=== PATIENT | female | born 1955 | race Caucasian/White ===

== ENCOUNTER 2021-11-17 07:26 | Day surgery (SDC) | payer MEDICARE ==
--- NOTE | 2021-11-11 09:47 | HP ---
DATE OF SURGERY: 11/17/2021 HISTORY OF PRESENT ILLNESS: The patient is a 66-year-old female who presented with a positive Cologuard. The patient has not had a colonoscopy to date. She denies family history of colon cancer. She denies any GI signs or symptoms at this time. PAST MEDICAL HISTORY: Hypertension, hyperlipidemia, gout, neuropathy. PAST SURGICAL HISTORY: Knee surgery x2. Left total knee surgery. Partial hysterectomy. Cholecystectomy. ALLERGIES: IODINATED CONTRAST MEDIA. MEDICATIONS: Naproxen, hydrocodone, potassium, atorvastatin, Ambien, gabapentin, metoprolol, Fosamax, venlafaxine, allopurinol, stool softener, aspirin, hydralazine. FAMILY HISTORY: None reported. SOCIAL HISTORY: None reported. REVIEW OF SYSTEMS: CONSTITUTIONAL: Denies fever or chills. CHEST: Denies shortness of breath. CVS: Denies chest pain. ABDOMEN: Denies abdominal pain, nausea, vomiting, diarrhea, constipation or rectal bleeding. PHYSICAL EXAMINATION: GENERAL: No acute distress. CHEST: Nonlabored. No shortness of breath. CVS: Regular rate and rhythm. ABDOMEN: Soft. IMPRESSION: Positive Cologuard. PLAN: Colonoscopy with Dr. Lex Patel. As dictated by Carmen Tai NP.
[2021-11-17] MEDS ORDERED: GlucaGen 1 MG IM ONE (07:27)
[2021-11-17] MEDS ORDERED: Lactated Ringers 1,000 ML IV ONE (07:49)
[2021-11-17] MEDS ORDERED: Lactated Ringers 1,000 ML IV SCH (08:00)
[2021-11-17] MEDS ORDERED: Versed 2 MG/2 ML Injection ONE (09:34)
[2021-11-17] MEDS ORDERED: DIPRIVAN 200 MG/20 ML IV ONE ×2 (09:34→09:49)
[2021-11-17 10:17] VITALS: O2SAT 96
[2021-11-17 10:25] VITALS: BP 143/91; PULSE 80
--- NOTE | 2021-11-17 11:28 | OP ---
SURGERY DATE/TIME: 11/17/2021 0937 PREOPERATIVE DIAGNOSIS: Positive Cologuard. POSTOPERATIVE DIAGNOSIS: A 1 cm mid sigmoid colon polyp. PROCEDURES: 1) Colonoscopy complete to cecum. 2) Hot polypectomy x1. SURGEON: Lex Patel M.D. ANESTHESIA: MAC. COMPLICATIONS: None. CONDITION: Stable. INDICATION: The patient had a positive Cologuard. DESCRIPTION OF PROCEDURE: Taken to endoscopy. Left lateral decubitus position. MAC sedation provided. Time out performed. Anal digital examination satisfactory. Scope introduced. She has moderate internal hemorrhoids. Rectum negative. Sigmoid, transverse, scope advanced over the cecum. Slightly redundant colon. Base of the cecum, ileocecal valve, appendiceal orifice normal. Ascending, hepatic, transverse, splenic, descending. Mid sigmoid a 1 cm polyp posterior wall was picked up and taken to extinction. Alley [employer]er sample submitted. Rectum and anus moderate internal hemorrhoids. The patient tolerated the procedure satisfactorily. Follow up in three years.
== END 2021-11-17 10:30 | disposition home or self-care (01) ==
LOC: SDC 07:26
PROVIDERS: ATTEND Surgery
DX: K63.5 Polyp of colon (principal); R19.5 Other fecal abnormalities; K64.8 Other hemorrhoids
CPT/HCPCS: J1610; J2250; J2704

== ENCOUNTER 2021-12-17 08:06 | Emergency (ER) | payer MEDICARE ==
--- NOTE | 2021-12-17 08:32 | ERPHSYRPT ---
- History of Present Illness Time Seen by Provider: 12/17/21 08:27 Source: patient Exam Limitations: no limitations Patient Subjective Stated Complaint: C/O RLE swelling without pain that started yesterday morning Triage Nursing Assessment: Patient wheeled down to ED from the [facility] in a wheelchair. She walks with a cane and wears a knee brace on her left knee. She was able to transfer self from w/c to bed without difficulties. She is alert and oriented and answering questions appropriately. RLE is very swollen; non- pitting edema. Right leg is slightly warmer than left leg. No discoloration noted. Both pedal pulses present. Physician History: Patient is 66-year-old female with significant past medical history of knee osteoarthritis history of coronavirus infection in July 2020 started having a right lower extremity swelling without pain since yesterday. She came to the [facility] from where patient was sent to the emergency room for further evaluation. Patient is denying any pain shortness of breath chest pain bloody stool or urine headache nausea or vomiting. Method of Injury: unknown Occurred: yesterday Severity of Pain-Max: none Severity of Pain-Current: none Modifying Factors: Improves With: nothing Associated Symptoms: none Body Map: 1 - swelling Allergies/Adverse Reactions: Horse/Equine Containing Products Allergy (Intermediate, Verified 12/17/21 08:14) Hives Iodinated Contrast Media [Iodinated Contrast Media - Oral and] Allergy (Intermediate, Verified 12/17/21 08:14) Swelling tetanus and diphtheria toxoids Allergy (Intermediate, Verified 12/17/21 08:14) Nausea and Vomiting Home Medications: Gabapentin 600 mg PO QID 06/11/16 [History] Hydrocodone/Acetaminophen [Nardin 5-325 Tablet] 1 each PO BID PRN 06/11/16 [History] Zolpidem Tartrate [Ambien] 10 mg PO HS PRN 06/11/16 [History] Atorvastatin Calcium 20 mg PO HS 06/24/16 [History] Furosemide 80 mg [Lasix 80 mg] 80 mg PO BID 06/24/16 [History] Metoprolol Tartrate 25 mg [Lopressor 25MG Tab] 25 mg PO BID 06/24/16 [History] Potassium Chloride 20 Meq [Klor-Con 20 MEQ] 20 meq PO EVENING MEAL 06/24/16 [History] Allopurinol 300 mg [Zyloprim 300 mg] 300 mg PO DAILY 11/10/21 [History] Venlafaxine HCl ER 75 mg [Effexor XR 75 MG] 75 mg PO DAILY 11/10/21 [History] Albuterol Sulfate [Albuterol Sulfate Hfa] 18 gm IH Q4HPRN PRN 11/17/21 [History] Aspirin EC 81 mg [Ecotrin 81 mg] 1 tab PO DAILY 12/17/21 [History] Hydroxyzine HCl 25 mg [Atarax 25 mg] 1 tab PO BID PRN 12/17/21 [History] Sucralfate 1 tab PO TID 12/17/21 [History] Hx Tetanus, Diphtheria Vaccination/Date Given: No (allergic) Hx Influenza Vaccination/Date Given: No Hx Pneumococcal Vaccination/Date Given: No Immunizations Up to Date: Yes Travel Risk - International Travel Have you traveled outside of the country in past 3 weeks: No - Coronavirus Screening Are you exhibiting any of the following symptoms?: No Close contact with a COVID-19 positive Pt in past 14-21 Days: No - Vaccine Status Have you recieved a Covid-19 vaccination: Yes [employer]: Moderna - Vaccination Dates Date of 2cond Vaccination (if applicable): 2020 - Review of Systems Constitutional: No Fever, No Chills Eyes: No Symptoms Ears, Nose, & Throat: No Symptoms Respiratory: No Cough, No Dyspnea Cardiac: No Chest Pain, No Edema, No Syncope Abdominal/Gastrointestinal: No Abdominal Pain, No Nausea, No Vomiting, No D iarrhea Genitourinary Symptoms: No Dysuria Musculoskeletal: No Back Pain, No Neck Pain Skin: No Rash Neurological: No Dizziness, No Focal Weakness, No Sensory Changes Psychological: No Symptoms Endocrine: No Symptoms All Other Systems: Reviewed and Negative - Past Medical History Pertinent Past Medical History: Yes Neurological History: No Pertinent History ENT History: No Pertinent History Cardiac History: Hypertension Respiratory History: Other Endocrine Medical History: No Pertinent History Musculoskeletal History: Arthritis, Osteoarthritis, Rheumatoid Arthritis GI Medical History: No Pertinent History History: No Pertinent History Psycho-Social History: Anxiety, Depression Female Reproductive Disorders: No Pertinent History Other Medical History: Covid in Jul 2021 - Past Surgical History Past Surgical History: Yes Neuro Surgical History: No Pertinent History Cardiac: No Pertinent History Respiratory: No Pertinent History Gastrointestinal: Cholecystectomy Genitourinary: No Pertinent History Musculoskeletal: Joint Replacement Female Surgical History: Hysterectomy Other Surgical History: LTK, meniscus yoana knees - Social History Smoking Status: Never smoker Exposure to second hand smoke: No Drug Use: none Patient Lives Alone: No - Nursing Vital Signs Nursing Vital Signs: Initial Vital Signs Temperature 97.5 F 12/17/21 08:15 Pulse Rate 69 12/17/21 08:15 Respiratory Rate 18 12/17/21 08:15 Blood Pressure 123/69 12/17/21 08:15 O2 Sat by Pulse Oximetry 99 12/17/21 08:15 Pain Scale Pain Intensity 0 - Physical Exam General Appearance: alert Eyes, Ears, Nose, Throat Exam: moist mucous membranes Neck Exam: non-tender, supple Cardiovascular/Respiratory Exam: chest non-tender, normal breath sounds, regular rate/rhythm, no respiratory distress Gastrointestinal/Abdominal Exam: non-tender, soft Back Exam: normal inspection, No vertebral tenderness Hips Exam: right: swelling, bilateral: non-tender Legs Exam: right leg: swelling, bilateral leg: non-tender Knees Exam: bilateral knee: non-tender Ankle Exam: bilateral ankle: non-tender Foot Exam: bilateral foot: non-tender Neuro/Tendon Exam: normal sensation, normal motor functions Mental Status Exam: alert, oriented x 3, cooperative Skin Exam: normal color, warm, dry SpO2 Interpretation: normal SpO2: 99 O2 Delivery: Room Air - Course Nursing assessment & vital signs reviewed: Yes Ordered Tests: Active Orders 24 hr Category Date Time Status CBC Stat Lab 12/17/21 08:36 Completed CMP Stat Lab 12/17/21 08:36 Received D-DIMER QUANTITATIVE Stat Lab 12/17/21 08:36 Completed Medication Summary Generic Name Dose Route Start Last Admin Trade Name Freq PRN Reason Stop Dose Admin Apixaban 10 mg 12/17/21 09:19 Apixaban 2.5 Mg Tablet PO 12/17/21 09:20 DAILY ONE Lab/Rad Data: Laboratory Result Diagrams 12/17/21 08:36 Laboratory Results 12/17/21 12/17/21 Range/Units 08:36 08:36 WBC 8.1 (4.0-10.5) x10^3/uL RBC 4.27 (4.1-5.4) x10^6/uL Hgb 12.2 (12.0-16.0) g/dL Hct 38.4 (35-47) % MCV 89.9 (78-100) fL MCH 28.6 (26-32) pg MCHC 31.8 L (32-36) g/dL RDW 13.5 (11.5-14.0) % Plt Count 183 (150-450) x10^3/uL MPV 9.0 (7.5-11.0) fL D-Dimer 9.44 H* (0.0-0.50) mg/L Patient both lower extremity arterial pulse were checked with arterial Doppler on both sides includes femoral popliteal and dorsalis pedis and posterior tibial they both have a very good pulsation and good volume pulsation. Venous duplex was also done on the right lower extremity extending from femoral vein all the way to the calf veins and which were patent and veins were compressed on pressure. Complete blood count D-dimer and comprehensive metabolic panel has been ordered. - Progress Progress: unchanged Progress Note: 12/17/21 09:08 Patient D-dimer is elevated. In ER venous duplex done by me was negative. We will order right lower lateral extremity ultrasound on Sunday. Meanwhile we will start patients on anticoagulation Eliquis 10 mg twice daily. Patient is advised to follow-up with Dr. Suarez after ultrasound report. Counseled pt/family regarding: lab results, diagnosis, need for follow-up, rad results - Departure Departure Disposition: Home Clinical Impression: Elevated d-dimer, Post covid-19 condition, unspecified Condition: Stable Critical Care Time: No Referrals: STEPHANIE SUAREZ DO [Primary Care Provider] - Follow Up with PCP/3 days Instructions: D-Dimer Test, Apixaban Additional Instructions: One of your blood test which is called D-dimer has been elevated which usually may be consistent with possible blood clot. We will schedule more diagnostic venous ultrasound of right lower extremity which is scheduled for Sunday. Meanwhile we have started you on blood thinner called Eliquis 10 mg twice a day for for 7 days and then 5 mg twice a day. Follow-up with Dr. Faith for further management after you get your venous duplex ultrasound on Sunday morning. Stop naproxen while you are taking eliquis. which may cause stomach bleeding. Discharge/Care Plan SAMIA MADSEN was seen on 12/17/21 in the Emergency Room. The patient was counseled regarding Diagnosis,Lab results, Imaging studies, need for follow up and when to return to the Emergency Room. Prescriptions given: Discharge Note I have spoken with the patient and/or caregivers. I have explained the patient's condition, diagnosis and treatment plan based on the information available to me at this time. I have answered the patient's and/or caregiver's questions and a ddressed any concerns. The patient and/or caregivers have as good understanding of the patient's diagnosis, condition and treatment plan as can be expected at this point. The vital signs have been stable. The patient's condition is stable and appropriate for discharge from the emergency department. The patient will pursue further outpatient evaluation with the primary care physician or other designated or consulting physician as outlined in the discharge instructions. The patient and/or caregivers are agreeable to this plan of care and follow-up instructions have been explained in detail. The patient and/or caregivers have received these instruction. The patient/and or caregivers are aware that any significant change in condition or worsening of symptoms should prompt an immediate return to this or the closest emergency department or call 911. SAMIA MADSEN was seen on 12/17/21 n the Emergency Room. At that time you were treated for an emergent condition, during your visit Laboratory, Radiology and/or other procedures may have been ordered. It is very important that you follow-up with your Primary Care Physician STEPHANIE SUAREZ, within the next 24-48 hours to review your Emergency Room visit and the final results of testing that was ordered. Some test results such as Urine Cultures, Blood Cultures, and other cultures if ordered will not be finalized for 24-48 hours. If you do not have a Primary Care Provider please call the medical records department at [phone] ext [phone] to obtain a copy of your results or you may sign into our patient portal to obtain these results by visiting us @ [email or web address] and completing the following steps: 1. Click on the Patient Portal link 2. Click the Patient Self Enrollment Link to complete the enrollment form and entering your 3. Once the enrollment form is completed you will receive an email with a temporary ID and password at the email address you provided. 4. Next choose a user name and password. Your user name must be at least 4 characters long and your password must be at least 4 characters long. 5. Choose a security question from the list and provide your answer to the question. If you already have signed into the Health Portal you may access your Health Care Information 15/01 by the following steps: 1. Login to our website @ [email or web address] 2. Enter your original user name and password. FAQS The [facility] Portal is an online tool that contains your Lab Results, Radiology Reports, Visit History, Discharge Instructions and Health Summary Lab and Radiology Results will not be available for 72 hours on the portal. The Portal is a secure site, passwords are encryted and URLs are re-written so they cannot be copied and pasted. You and authorized family members are the only ones who can access your Portal. Also there is a timeout feature that protects your information if you leave the Portal page open. If you have technical difficulty please use the Contact Us link on the page this will allow you to submit any questions you have regarding the Portal or you may contact the Medical Record Department at [phone] ext [phone]. Prescriptions: Apixaban [Eliquis 5 mg Tablet] 5 mg PO BID #72 tablet
[2021-12-17 08:48] LABS: Hematocrit 38.4 % (35-47); Hemoglobin 12.2 g/dL (12.0-16.0); Mean Cell Volume 89.9 fL (78-100); Mean Corpuscular Hemoglobin 28.6 pg (26-32); Mean Corpuscular Hgb Concent. 31.8 g/dL (32-36); Platelet Count 183 x10^3/uL (150-450); Red Blood Count 4.27 x10^6/uL (4.1-5.4); Red Cell Distribution Width 13.5 % (11.5-14.0); White Blood Count 8.1 x10^3/uL (4.0-10.5)
[2021-12-17 09:17] VITALS: BP 134/75
[2021-12-17 09:19] LABS: ALBUMIN 3.9 g/dL (3.5-5.0); ALKALINE PHOSPHATASE 111 U/L (38-126); ANION GAP 12.8 MEQ/L (5-15); BLOOD UREA NITROGEN 15 mg/dL (7-17); CHLORIDE 104 mmol/L (98-107); Calcium 9.3 mg/dL (8.4-10.2); Carbon Dioxide 31 mmol/L (22-30); Creatinine 1 0.94 mg/dL (0.52-1.04); EST GLOMERULAR FILTRATION RATE > 60.0 ML/MIN; Glucose 114 mg/dL (74-106); Potassium 4.7 mmol/L (3.5-5.1); SGOT/AST 27 U/L (14-36); SGPT/ALT 21 U/L (0-35); SODIUM 142 mmol/L (137-145); Total Protein 6.6 g/dL (6.3-8.2)
[2021-12-17] MEDS ORDERED: ELIQUIS 2.5 MG TABLET PO ONE (09:19)
[2021-12-17 09:52] VITALS: PULSE 70; O2SAT 98
== END 2021-12-17 09:52 | disposition home or self-care (01) ==
LOC: ED 08:06
DX: R79.1 Abnormal coagulation profile (principal); U09.9 Post COVID-19 condition, unspecified; R60.0 Localized edema; M79.89 Other specified soft tissue disorders; I10 Essential (primary) hypertension; Z79.01 Long term (current) use of anticoagulants; Z79.891 Long term (current) use of opiate analgesic; Z79.899 Other long term (current) drug therapy
CPT/HCPCS: 36415; 80053; 85027; 85379; 99283; A9270-GY

== ENCOUNTER 2025-03-09 08:05 | Inpatient (IN) | payer MEDICARE, SELFPAY ==
[2025-03-09] MEDS ORDERED: BABY ASPIRIN 81 MG CHEW ONE (08:22)
[2025-03-09] MEDS ORDERED: Cardizem IV 50 MG/10 ML IV ONE (08:23)
[2025-03-09] MEDS: BABY ASPIRIN 81 MG CHEW PO ONE (08:25)
[2025-03-09] MEDS: Cardizem IV 50 MG/10 ML IV ONE (08:25)
[2025-03-09 08:39] LABS: BASOPHIL % 0.4 % (0.1-1.2); Basophil (Absolute #) 0.05 x10^3/uL (0.01-0.08); Eosinophil (Absolute #) 0.15 x10^3/uL (0.04-0.36); Hematocrit 43.1 % (34.1-44.9); Hemoglobin 13.4 g/dL (11.2-15.7); IMMATURE GRAN # 0.08 x10^3u/L (0.001-0.031); IMMATURE GRAN % 0.7 % (0.001-0.429); Lymphocyte (Absolute #) 1.73 x10^3/uL (1.18-3.74); Mean Corpuscular Hemoglobin 27.3 pg (25.6-32.2); Mean Corpuscular Hgb Concent. 31.1 g/dL (32.2-35.5); Monocyte (Absolute #) 0.59 x10^3/uL (0.24-0.86); NUCLEATED RBC # 0.00 x10^3u/L (0.00-0.012); NUCLEATED RBC % 0.0 % (0.00-0.2); Platelet Count 256 x10^3/uL (182-369); Red Blood Count 4.90 x10^6/uL (3.93-5.22); White Blood Count 11.1 x10^3/uL (3.98-10.04)
--- NOTE | 2025-03-09 08:42 | ERPHSYRPT ---
- History of Present Illness Time Seen by Provider: 03/09/25 08:14 Source: patient, old records Exam Limitations: no limitations Physician History: Patient sent over from urgent care for A-fib with RVR. Patient has a known history of A-fib. Has been not feeling well over the past 4 to 5 days. States that she went to [facility] today for viral swabs. These were read as negative per patient care nursing assistant. However, patient continued to feel poorly, EKG was performed I am reviewing EKG from [facility] EKG my interpretation from 0756 demonstrates A-fib, RVR, rate of 148, QRS 93, QTc is 491, patient is on blood thinners for this. She denies missing any doses of her blood thinners. No other falls or trauma no fever or chills today. Patient has no chest pain, shortness of breath no other signs or symptoms of DVT, pulmonary embolism on history. Allergies/Adverse Reactions: Horse/Equine Containing Products Allergy (Intermediate, Verified 12/17/21 08:14) Hives Iodinated Contrast Media [Iodinated Contrast Media - Oral and] Allergy (Intermediate, Verified 12/17/21 08:14) Swelling tetanus and diphtheria toxoids Allergy (Intermediate, Verified 12/17/21 08:14) Nausea and Vomiting Home Medications: Gabapentin 600 mg PO QID 06/11/16 [History] Hydrocodone/Acetaminophen [[place] 5-325 Tablet] 1 each PO BID PRN 06/11/16 [History] Zolpidem Tartrate [Ambien] 10 mg PO HS PRN 06/11/16 [History] Atorvastatin Calcium 40 mg PO HS 06/24/16 [History] Furosemide 80 mg [Lasix 80 mg] 80 mg PO BID 06/24/16 [History] Metoprolol Tartrate 25 mg [Lopressor 25MG Tab] 25 mg PO BID 06/24/16 [History] Potassium Chloride 20 Meq [Klor-Con 20 MEQ] 20 meq PO BID@0800,1700 06/24/16 [History] Allopurinol 300 mg [Zyloprim 300 mg] 300 mg PO DAILY 11/10/21 [History] Venlafaxine HCl ER 75 mg [Effexor XR 75 MG] 150 mg PO DAILY 11/10/21 [History] Albuterol Sulfate [Albuterol Sulfate Hfa] 18 gm IH Q4HPRN PRN 11/17/21 [History] Hydroxyzine HCl 25 mg [Atarax 25 mg] 1 tab PO BID PRN 12/17/21 [History] Hx Tetanus, Diphtheria Vaccination/Date Given: No (allergic) Hx Influenza Vaccination/Date Given: No Hx Pneumococcal Vaccination/Date Given: No - Past Medical History Pertinent Past Medical History: Yes Neurological History: No Pertinent History ENT History: No Pertinent History Cardiac History: Arrhythmia, Hypertension Respiratory History: No Pertinent History Endocrine Medical History: No Pertinent History Musculoskeletal History: Osteoarthritis GI Medical History: No Pertinent History History: No Pertinent History Psycho-Social History: Anxiety, Depression Female Reproductive Disorders: No Pertinent History Other Medical History: HISTORY OF BACK PAIN, BLOOD CLOTS IN THE R LE DUE TO POST-COVID. - Past Surgical History Past Surgical History: Yes Neuro Surgical History: No Pertinent History Cardiac: No Pertinent History Respiratory: No Pertinent History Gastrointestinal: Cholecystectomy Genitourinary: No Pertinent History Musculoskeletal: Joint Replacement Female Surgical History: Hysterectomy Other Surgical History: LTK, meniscus yoana knees - Social History Smoking Status: Never smoker Exposure to second hand smoke: No Drug Use: none - Nursing Vital Signs Nursing Vital Signs: Initial Vital Signs Temperature 97.9 F 03/09/25 08:12 Pulse Rate 170 H 03/09/25 08:12 Respiratory Rate 18 03/09/25 08:12 Blood Pressure 109/92 03/09/25 08:12 O2 Sat by Pulse Oximetry 98 03/09/25 08:12 Pain Scale Pain Intensity 0 - Physical Exam SpO2: 98 Comments: 03/09/25 08:40 Review of Systems Constitutional: Negative for fever. HENT: Cough, cold, congestion Respiratory: Negative for shortness of breath. Cardiovascular: Negative for chest pain. Gastrointestinal: Negative for abdominal pain. Diarrhea last week Genitourinary: Negative for dysuria. Musculoskeletal: Negative for back pain. Skin: Negative for rash. Neurological: Negative for headaches. Psychiatric/Behavioral: Negative for behavioral problems. All other systems reviewed and are negative. Physical Exam Vitals signs and nursing note reviewed. Constitutional: Appearance: Patient is well-developed. HENT: Head: Normocephalic and atraumatic. Eyes: Conjunctiva/sclera: Conjunctivae normal. Neck: Musculoskeletal: Normal range of motion. Trachea: No tracheal deviation. Cardiovascular: Rate and Rhythm: Atrial fibs, RVR Pulmonary: Effort: Pulmonary effort is normal. No respiratory distress. Abdominal: Palpations: Abdomen is soft. Musculoskeletal: General: No deformity. Skin: General: Skin is warm and dry. Neurological/ Psychiatric: Mental Status: Mental status, behavior, interaction with environment is appropriate for patient's age and condition - Course Nursing assessment & vital signs reviewed: Yes EKG Interpreted by Me: A-fib Ordered Tests: Active Orders 24 hr Category Date Time Status Call Admit Doctor for Orders ON ADMISSION Care 03/09/25 09:59 Active Radio Time Salesperson STAT Care 03/09/25 08:16 Active Code Status Order ROUTINE Care 03/09/25 09:59 Active EKG-ER Only STAT Care 03/09/25 08:15 Active IV Insertion STAT Care 03/09/25 08:[address] in Observation ROUTINE Care 03/09/25 10:00 Active Heart-Healthy Diet Diet 03/10/25 Breakfast Active CHEST 1 VIEW (PORTABLE) Stat Exams 03/09/25 08:16 Completed AMYLASE Stat Lab 03/09/25 08:28 Completed CBC W DIFF Stat Lab 03/09/25 08:28 Completed CK-Creatinine Phosphokinase Stat Lab 03/09/25 08:28 Completed CMP Stat Lab 03/09/25 08:28 Completed ETHYL ALCOHOL Stat Lab 03/09/25 08:28 Completed Erythrocyte Sedimentation Rate Stat Lab 03/09/25 08:28 Completed LIPASE Stat Lab 03/09/25 08:28 Completed Lactic Acid Stat Lab 03/09/25 08:15 Completed MAGNESIUM Stat Lab 03/09/25 08:28 Completed NT PRO BNPII Stat Lab 03/09/25 08:28 Completed PROTIME WITH INR Stat Lab 03/09/25 08:28 Completed TROPONIN Q4H Lab 03/09/25 08:28 Completed TROPONIN Q4H Lab 03/09/25 12:15 Ordered TROPONIN Q4H Lab 03/09/25 16:15 Ordered UA W/RFX UR CULTURE Stat Lab 03/09/25 09:09 Completed Pulse Oximetry CONTINUOUS RT 03/09/25 10:01 Active Respiratory Therapy Consult ONCE RT 03/09/25 10:00 Active Medication Summary Generic Name Dose Route Start Last Admin Trade Name Freq PRN Reason Stop Dose Admin Diltiazem HCl 100 mls @ 5 mls/hr 03/09/25 09:57 03/09/25 10:19 Cardizem Drip 100 Mg/100 Ml D5w IV 04/08/25 09:56 5 mg/hr .Q20H PRN 5 mls/hr HEART RATE/ A-FIB Administration Protocol 5 MG/HR Discontinued Medications Generic Name Dose Route Start Last Admin Trade Name Freq PRN Reason Stop Dose Admin Aspirin 324 mg 03/09/25 08:15 03/09/25 08:25 Aspirin 81 Mg Tab.Chew PO 03/09/25 08:16 324 mg STAT ONE Administration Aspirin Confirm 03/09/25 08:22 Aspirin 81 Mg Tab.Chew Administered 03/09/25 08:23 Dose 324 mg .ROUTE .STK-MED ONE Azithromycin 500 mg 03/09/25 09:36 03/09/25 10:17 Azithromycin 250 Mg Tablet PO 03/09/25 09:37 500 mg STAT ONE Administration Azithromycin Confirm 03/09/25 10:16 Azithromycin 250 Mg Tablet Administered 03/09/25 10:17 Dose 500 mg .ROUTE .STK-MED ONE Diltiazem HCl 10 mg 03/09/25 08:15 03/09/25 08:25 Diltiazem Hcl Iv 5 Mg/Ml Vial IV 03/09/25 08:16 10 mg STAT ONE Administration Diltiazem HCl Confirm 03/09/25 08:23 Diltiazem Hcl Iv 5 Mg/Ml Vial Administered 03/09/25 08:24 Dose 50 mg IV .STK-MED ONE Sodium Chloride 1,000 mls @ 999 mls/hr 03/09/25 08:15 03/09/25 09:34 Sodium Chloride 0.9% 1000 Ml IV 03/09/25 09:15 Infused .Q1H1M STA Infusion Sodium Chloride Confirm 03/09/25 08:22 Sodium Chloride 0.9% 1000 Ml Administered 03/09/25 08:23 Dose 1,000 mls @ ud .ROUTE .STK-MED ONE Ceftriaxone Sodium 2 gm in 100 mls @ 200 mls/hr 03/09/25 09:36 03/09/25 09:42 Rocephin 2 Gm/100 Ml Nacl IV 03/09/25 10:05 200 ml/hr STAT ONE 200 mls/hr Administration Ceftriaxone Sodium Confirm 03/09/25 09:40 Rocephin 2 Gm/100 Ml Nacl Administered 03/09/25 09:41 Dose 2 gm in 100 mls @ ud IV .STK-MED ONE Lab/Rad Data: Laboratory Result Diagrams 03/09/25 08:28 03/09/25 08:28 Laboratory Results 03/09/25 03/09/25 03/09/25 Range/Units 09:09 08:28 08:28 WBC (3.98-10.04) x10^3/uL RBC (3.93-5.22) x10^6/uL Hgb (11.2-15.7) g/dL Hct (34.1-44.9) % MCV (79.4-94.8) fL MCH (25.6-32.2) pg MCHC (32.2-35.5) g/dL RDW (11.7-14.4) % Plt Count (182-369) x10^3/uL MPV (9.4-12.3) fL Gran % (34.0-71.1) % Immature Gran % (Auto) (0.001-0.429) % Nucleat RBC Rel Count (0.00-0.2) % Eos # (Auto) (0.04-0.36) x10^3/uL Immature Gran # (Auto) (0.001-0.031) x10^3u/L Absolute Lymphs (auto) (1.18-3.74) x10^3/uL Absolute Monos (auto) (0.24-0.86) x10^3/uL Absolute Nucleated RBC (0.00-0.012) x10^3u/L Lymphocytes % (19.3-51.7) % Monocytes % (4.7-12.5) % Eosinophils % (0.7-5.8) % Basophils % (0.1-1.2) % Absolute Granulocytes (1.56-6.13) x10^3/uL Basophils # (0.01-0.08) x10^3/uL ESR (0-20) mm/hr PT 21.2 H (9.4-12.5) SECONDS INR 2.04 (0.8-3.0) Sodium 142 (135-145) mmol/L Potassium 3.3 L (3.5-5.1) mmol/L Chloride 105 (98-107) mmol/L Carbon Dioxide 27 (22-30) mmol/L Anion Gap 13.9 (5-15) MEQ/L BUN 18 H (7-17) mg/dL Creatinine 1.37 H (0.52-1.04) mg/dL Estimated GFR 42.3 ML/MIN Glucose 147 H (74-106) mg/dL Lactic Acid (0.4-2.0) Calcium 9.0 (8.4-10.2) mg/dL Magnesium 2.2 (1.6-2.3) mg/dL Total Bilirubin 0.60 (0.2-1.3) mg/dL AST 52 H (14-36) U/L ALT 110 H (0-35) U/L Alkaline Phosphatase 117 (38-126) U/L Creatine Kinase 45 (30-135) U/L Troponin I < 0.012 (0.000-0.033) ng/mL NT-Pro-B Natriuret Pep 5220 (<300) pg/mL Serum Total Protein 6.7 (6.3-8.2) g/dL Albumin 4.0 (3.5-5.0) g/dL Amylase 80 (30-110) U/L Lipase 148 (23-300) U/L Urine Color Yellow (Yellow) Urine Appearance Clear (Clear) Urine pH 6.5 (4.6-8.0) Ur Specific [place] 1.010 (1.005-1.030) Urine Protein Negative (Negative) Urine Glucose (UA) Negative (Negative) mg/dL Urine Ketones Negative (Negative) Urine Blood Negative (Negative) Urine Nitrite Negative (Negative) Urine Bilirubin Negative (Negative) Urine Urobilinogen 1.0 A (0.2) mg/dL Ur Leukocyte Esterase Trace A (Negative) U Hyaline Cast (Auto) NONE SEEN (0-2) /LPF Urine Microscopic RBC 0-2 (0-5) /HPF Urine Microscopic WBC 0-2 (0-5) /HPF Ur Epithelial Cells None Seen (None Seen) /HPF Urine Bacteria None Seen (None Seen) /HPF Urine Culture Reflexed NO (NO) Ethyl Alcohol < 10 (0-10) mg/dL 03/09/25 03/09/25 Range/Units 08:28 08:15 WBC 11.1 H (3.98-10.04) x10^3/uL RBC 4.90 (3.93-5.22) x10^6/uL Hgb 13.4 (11.2-15.7) g/dL Hct 43.1 (34.1-44.9) % MCV 88.0 (79.4-94.8) fL MCH 27.3 (25.6-32.2) pg MCHC 31.1 L (32.2-35.5) g/dL RDW 14.6 H (11.7-14.4) % Plt Count 256 (182-369) x10^3/uL MPV 10.4 (9.4-12.3) fL Gran % 76.7 H (34.0-71.1) % Immature Gran % (Auto) 0.7 H (0.001-0.429) % Nucleat RBC Rel Count 0.0 (0.00-0.2) % Eos # (Auto) 0.15 (0.04-0.36) x10^3/uL Immature Gran # (Auto) 0.08 H (0.001-0.031) x10^3u/L Absolute Lymphs (auto) 1.73 (1.18-3.74) x10^3/uL Absolute Monos (auto) 0.59 (0.24-0.86) x10^3/uL Absolute Nucleated RBC 0.00 (0.00-0.012) x10^3u/L Lymphocytes % 15.6 L (19.3-51.7) % Monocytes % 5.3 (4.7-12.5) % Eosinophils % 1.3 (0.7-5.8) % Basophils % 0.4 (0.1-1.2) % Absolute Granulocytes 8.52 H (1.56-6.13) x10^3/uL Basophils # 0.05 (0.01-0.08) x10^3/uL ESR 19 (0-20) mm/hr PT (9.4-12.5) SECONDS INR (0.8-3.0) Sodium (135-145) mmol/L Potassium (3.5-5.1) mmol/L Chloride (98-107) mmol/L Carbon Dioxide (22-30) mmol/L Anion Gap (5-15) MEQ/L BUN (7-17) mg/dL Creatinine (0.52-1.04) mg/dL Estimated GFR ML/MIN Glucose (74-106) mg/dL Lactic Acid 1.6 (0.4-2.0) Calcium (8.4-10.2) mg/dL Magnesium (1.6-2.3) mg/dL Total Bilirubin (0.2-1.3) mg/dL AST (14-36) U/L ALT (0-35) U/L Alkaline Phosphatase (38-126) U/L Creatine Kinase (30-135) U/L Troponin I (0.000-0.033) ng/mL NT-Pro-B Natriuret Pep (<300) pg/mL Serum Total Protein (6.3-8.2) g/dL Albumin (3.5-5.0) g/dL Amylase (30-110) U/L Lipase (23-300) U/L Urine Color (Yellow) Urine Appearance (Clear) Urine pH (4.6-8.0) Ur Specific [place] (1.005-1.030) Urine Protein (Negative) Urine Glucose (UA) (Negative) mg/dL Urine Ketones (Negative) Urine Blood (Negative) Urine Nitrite (Negative) Urine Bilirubin (Negative) Urine Urobilinogen (0.2) mg/dL Ur Leukocyte Esterase (Negative) U Hyaline Cast (Auto) (0-2) /LPF Urine Microscopic RBC (0-5) /HPF Urine Microscopic WBC (0-5) /HPF Ur Epithelial Cells (None Seen) /HPF Urine Bacteria (None Seen) /HPF Urine Culture Reflexed (NO) Ethyl Alcohol (0-10) mg/dL - Progress Progress: improved Progress Note: 03/09/25 08:41 Differential diagnosis includes: PNA, STEMI, NSTEMI, other infection, musculoskeletal pain, pneumothorax - We'll obtain basic labs, fluids, EKG, troponin, chest x-ray - EKG shows Atrial fibs RVR my interpretation - O2 saturations consistently greater than 95%. - CXR shows likely pneumonia my read We will give 10 mg of diltiazem, fluids, viral workup as well here. Close monitoring. 03/09/25 10:23 Chest x-ray shows likely pneumonia as above, antibiotics started in the emergency department, ceftriaxone and azithromycin. Patient is still in A-fib with RVR even after 10 mg of diltiazem. Rate between 140 and 150. Patient denies missing any of her medications. She is on metoprolol for rate control.Given all of this she likely needs to be on a diltiazem drip and admitted to the ICU. I did discuss over the phone with the on-call hospitalist, Dr. Cadena. We discussed the case in detail, made decision to start patient on diltiazem drip, admit patient to ICU here. Continued antibiotics as her community-acquired pneumonia is most likely what sent her into atrial fibrillation. Continue close ER monitoring until patient is admitted. Counseled pt/family regarding: lab results, diagnosis, need for follow-up, rad results - Departure Departure Disposition: Observation Clinical Impression: Community acquired pneumonia, Atrial fibrillation with RVR Condition: Stable Critical Care Time: Yes Critical Care Time(excluding separately billable procedures): Critical 30-74 mins Referrals: [facility] [Primary Care Provider, UNKNOWN] - Follow up/PCP as directed
--- NOTE | 2025-03-09 08:51 | XRAY ---
Indication: Pneumonia. Comparison: September 11, 2016 Portable chest again hyperinflated with new hazy right infrahilar interstitial alveolar opacities, possible pneumonia/pneumonitis. No consolidation/large effusion. Heart now borderline enlarged. Bony thorax intact again with osteopenia and minimal scoliosis.
[2025-03-09 08:52] LABS: INR 2.04 (0.8-3.0); PROTIME 21.2 SECONDS (9.4-12.5)
[2025-03-09 09:02] LABS: NT PRO BNPII 5220 pg/mL (<300)
[2025-03-09 09:03] LABS: CK-Creatinine Phosphokinase 45 U/L (30-135); Calcium 9.0 mg/dL (8.4-10.2); Carbon Dioxide 27 mmol/L (22-30); Creatinine 1 1.37 mg/dL (0.52-1.04); EST GLOMERULAR FILTRATION RATE 42.3 ML/MIN; ETHYL ALCOHOL < 10 mg/dL (0-10); Glucose 147 mg/dL (74-106); Potassium 3.3 mmol/L (3.5-5.1); SGOT/AST 52 U/L (14-36); SGPT/ALT 110 U/L (0-35); TROPONIN < 0.012 ng/mL (0.000-0.033); Total Protein 6.7 g/dL (6.3-8.2)
[2025-03-09 09:36] LABS: Glucose, Urine Negative (Negative); Protein,Urine Dip Negative (Negative); RBC 0-2 /HPF (0-5); WBC 0-2 /HPF (0-5)
[2025-03-09] MEDS ORDERED: ROCEPHIN 2 GM/100 ML NACL 2 GM/100 ML IVPB IV ONE (09:40)
[2025-03-09] MEDS: ROCEPHIN 2 GM/100 ML NACL 2 GM/100 ML IVPB IV ONE (09:42)
[2025-03-09] MEDS ORDERED: Zithromax 250 MG TABLET ONE (10:16)
[2025-03-09] MEDS: Zithromax 250 MG TABLET PO ONE (10:17)
[2025-03-09] MEDS: CARDIZEM DRIP 100 MG/100 ML D5W 100 ML IV PRN (10:19)
--- NOTE | 2025-03-09 12:05 | PCM.HP ---
<ERIN JOHNSON - Last Filed: 03/09/25 11:58> History of Present Illness - Chief Complaint Chief Complaint: atrial fib RVR/pneumonia Date: 03/09/25 History of Present Illness: is a 69 year old female with pmhx of atrial fibrillation on anticoagulation, hypertension, osteoarthritis, anxiety, depression, and prior DVT (right leg on coumadin) who presented to the emergency department on 03/09/25 after being referred from urgent care for atrial fibrillation with rapid ventricular response. She reports feeling unwell for the past 45 days with nonspecific malaise, cold sweats, diarrhea, dyspnea, and nausea prompting her to seek care at [facility] earlier today. She reports > 5 diarrheal stools per day. Viral swabs obtained there were negative. However, she continued to feel poorly and an EKG performed in clinic demonstrated atrial fibrillation with rapid ventricular response, prompting transfer to the ED. She denies chest pain, dyspnea, fever, palpitations, syncope, recent falls, or missed doses of her blood thinner. She also denies calf pain, swelling, or symptoms suggestive of DVT or pulmonary embolism. On arrival, her heart rate was in the 170s, otherwise vitals were stable. EKG showed atrial fibrillation with rapid ventricular response, ventricular rate 148 bpm, QRS 93 ms, QTc 491 ms. Lab findings significant for WBC 11.1, potassium 3.3, creatinine 1.37 (baseline 0.9), AST 52, ALT 110, and BNP 5220. CXR revealed hyperinflated lungs with new hazy right infrahilar interstitial/alveolar opacities concerning for pneumonia or pneumonitis, borderline cardiomegaly, no consolidation or effusion, with background osteopenia and minimal scoliosis. No recent echocardiogram is available for comparison. She was admitted for management of atrial fibrillation with RVR and pneumonia. - Review of Systems Constitutional: Chills, Weakness Eyes: No Symptoms Ears, Nose, & Throat: No Symptoms Respiratory: Short Of Breath Cardiac: Edema (BLE +2 pitting ) Abdominal/Gastrointestinal: Nausea, Diarrhea Genitourinary Symptoms: No Symptoms Musculoskeletal: Joint Pain (chronic) Skin: No Symptoms Neurological: No Symptoms Psychological: No Symptoms Endocrine: No Symptoms Hematologic/Lymphatic: No Symptoms Immunological/Allergic: No Symptoms Medications & Allergies Home Medications: Home Medication List Gabapentin 600 mg PO BID 06/11/16 [History Confirmed 03/09/25] Hydrocodone/Acetaminophen [[place] 5-325 Tablet] 1 tab PO BIDPRN PRN 06/11/16 [History Confirmed 03/09/25] Zolpidem Tartrate [Ambien] 10 mg PO HS 06/11/16 [History Confirmed 03/09/25] Atorvastatin Calcium 40 mg PO HS 06/24/16 [History Confirmed 03/09/25] Furosemide 80 mg [Lasix 80 mg] 80 mg PO QAM 06/24/16 [History Confirmed 03/09/25] Metoprolol Tartrate 25 mg [Lopressor 25MG Tab] 25 mg PO QAM 06/24/16 [History Confirmed 03/09/25] Nitroglycerin 0.4 mg Tablet [Nitrostat 0.4 MG Tablet] 0.4 mg SL Q5MIN PRN MR X 3 PRN #1 bottle 06/25/16 [Rx Confirmed 03/09/25] Allopurinol 300 mg [Zyloprim 300 mg] 300 mg PO DAILY 11/10/21 [History Confirmed 03/09/25] Hydroxyzine HCl 25 mg [Atarax 25 mg] 1 tab PO BIDPRN PRN 12/17/21 [History Confirmed 03/09/25] Furosemide 40 mg PO 1300 03/09/25 [History Confirmed 03/09/25] Metoprolol Tartrate 25 mg [Lopressor 25MG Tab] 25 mg PO 1300 03/09/25 [History Confirmed 03/09/25] Potassium Chloride Tab* [Klor Con] 20 meq PO 1300 03/09/25 [History Confirmed 03/09/25] Potassium Chloride Tab* [Klor Con] 40 meq PO QAM 03/09/25 [History Confirmed 03/09/25] Venlafaxine HCl [Venlafaxine HCl ER] 150 mg PO QAM 03/09/25 [History Confirmed 03/09/25] Warfarin Sodium 2 mg PO SUTUTHSA 03/09/25 [History Confirmed 03/09/25] Warfarin Sodium 3 mg PO MOWEFR 03/09/25 [History Confirmed 03/09/25] Allergies/Adverse Reactions: Allergies Allergy/AdvReac Type Severity Reaction Status Date / Time Horse/Equine Containing Allergy Intermediate Hives Verified 12/17/21 08:14 Products Iodinated Contrast Media Allergy Intermediate Swelling Verified 12/17/21 08:14 [Iodinated Contrast Media - Oral and] tetanus and diphtheria Allergy Intermediate Nausea and Verified 12/17/21 08:14 toxoids Vomiting - Past Medical History Past Medical History: Yes Neurological History: No Pertinent History ENT History: No Pertinent History Cardiac History: Arrhythmia, Hypertension Respiratory History: No Pertinent History Endocrine Medical History: No Pertinent History Musculoskelatal History: Osteoarthritis GI Medical History: No Pertinent History History: No Pertinent History Pyscho-Social History: Anxiety, Depression Reproductive Disorders: No Pertinent History Comment: HISTORY OF BACK PAIN, BLOOD CLOTS IN THE R LE DUE TO POST-COVID. - Past Surgical History Past Surgical History: Yes Neuro Surgical History: No Pertinent History Cardiac History: No Pertinent History Respiratory Surgery: No Pertinent History GI Surgical History: Cholecystectomy Genitourinary Surgical Hx: No Pertinent History Musculskeletal Surgical Hx: Joint Replacement Female Surgical History: Hysterectomy Other Surgical History: LTK, meniscus yoana knees Significant Family History: heart disease, cancer, diabetes, stroke - Social History Smoking Status: Never smoker Exposure to second hand smoke: No Alcohol: None Drug Use: none - Social Determinants of Health Will the patient participate in the screening: Declined to provide - Physical Exam Vital Signs: Vital Signs - 24 hr Temp Pulse Pulse Resp BP BP Pulse Ox 03/09/25 11:47 158 H 19 103/84 03/09/25 11:00 144 H 14 124/104 96 03/09/25 10:32 153 H 12 109/92 95 03/09/25 10:28 160 H 99 03/09/25 10:25 98 03/09/25 10:01 142 H 13 103/86 96 03/09/25 09:30 161 H 22 111/93 96 03/09/25 09:01 163 H 19 126/89 03/09/25 08:46 142 H 12 102/80 93 L 03/09/25 08:44 129 H 18 112/77 94 L 03/09/25 08:33 135 H 12 112/77 95 03/09/25 08:12 97.9 F 170 H 18 109/92 98 General Appearance: no apparent distress Neurologic Exam: alert, oriented x 3, cooperative Eye Exam: PERRL/EOMI Ears, Nose, Throat Exam: normal ENT inspection Neck Exam: normal inspection Respiratory Exam: normal breath sounds, lungs clear Cardiovascular Exam: tachycardia, irregular Gastrointestinal/Abdomen Exam: soft, normal bowel sounds Pelvic Exam: not done Rectal Exam: deferred Back Exam: normal inspection Extremity Exam: other (BLE +2 pitting) Results - Labs Lab/Micro Results: Lab Results-Last 24 Hours 03/09/25 03/09/25 03/09/25 Range/Units 08:15 08:28 08:28 WBC 11.1 H (3.98-10.04) x10^3/uL RBC 4.90 (3.93-5.22) x10^6/uL Hgb 13.4 (11.2-15.7) g/dL Hct 43.1 (34.1-44.9) % MCV 88.0 (79.4-94.8) fL MCH 27.3 (25.6-32.2) pg MCHC 31.1 L (32.2-35.5) g/dL RDW 14.6 H (11.7-14.4) % Plt Count 256 (182-369) x10^3/uL MPV 10.4 (9.4-12.3) fL Gran % 76.7 H (34.0-71.1) % Immature Gran % (Auto) 0.7 H (0.001-0.429) % Nucleat RBC Rel Count 0.0 (0.00-0.2) % Eos # (Auto) 0.15 (0.04-0.36) x10^3/uL Immature Gran # (Auto) 0.08 H (0.001-0.031) x10^3u/L Absolute Lymphs (auto) 1.73 (1.18-3.74) x10^3/uL Absolute Monos (auto) 0.59 (0.24-0.86) x10^3/uL Absolute Nucleated RBC 0.00 (0.00-0.012) x10^3u/L Lymphocytes % 15.6 L (19.3-51.7) % Monocytes % 5.3 (4.7-12.5) % Eosinophils % 1.3 (0.7-5.8) % Basophils % 0.4 (0.1-1.2) % Absolute Granulocytes 8.52 H (1.56-6.13) x10^3/uL Basophils # 0.05 (0.01-0.08) x10^3/uL ESR 19 (0-20) mm/hr PT (9.4-12.5) SECONDS INR (0.8-3.0) Sodium 142 (135-145) mmol/L Potassium 3.3 L (3.5-5.1) mmol/L Chloride 105 (98-107) mmol/L Carbon Dioxide 27 (22-30) mmol/L Anion Gap 13.9 (5-15) MEQ/L BUN 18 H (7-17) mg/dL Creatinine 1.37 H (0.52-1.04) mg/dL Estimated GFR 42.3 ML/MIN Glucose 147 H (74-106) mg/dL Lactic Acid 1.6 (0.4-2.0) Calcium 9.0 (8.4-10.2) mg/dL Magnesium 2.2 (1.6-2.3) mg/dL Total Bilirubin 0.60 (0.2-1.3) mg/dL AST 52 H (14-36) U/L ALT 110 H (0-35) U/L Alkaline Phosphatase 117 (38-126) U/L Creatine Kinase 45 (30-135) U/L Troponin I < 0.012 (0.000-0.033) ng/mL NT-Pro-B Natriuret Pep 5220 (<300) pg/mL Serum Total Protein 6.7 (6.3-8.2) g/dL Albumin 4.0 (3.5-5.0) g/dL Amylase 80 (30-110) U/L Lipase 148 (23-300) U/L Urine Color (Yellow) Urine Appearance (Clear) Urine pH (4.6-8.0) Ur Specific [place] (1.005-1.030) Urine Protein (Negative) Urine Glucose (UA) (Negative) mg/dL Urine Ketones (Negative) Urine Blood (Negative) Urine Nitrite (Negative) Urine Bilirubin (Negative) Urine Urobilinogen (0.2) mg/dL Ur Leukocyte Esterase (Negative) U Hyaline Cast (Auto) (0-2) /LPF Urine Microscopic RBC (0-5) /HPF Urine Microscopic WBC (0-5) /HPF Ur Epithelial Cells (None Seen) /HPF Urine Bacteria (None Seen) /HPF Urine Culture Reflexed (NO) Ethyl Alcohol < 10 (0-10) mg/dL 03/09/25 03/09/25 Range/Units 08:28 09:09 WBC (3.98-10.04) x10^3/uL RBC (3.93-5.22) x10^6/uL Hgb (11.2-15.7) g/dL Hct (34.1-44.9) % MCV (79.4-94.8) fL MCH (25.6-32.2) pg MCHC (32.2-35.5) g/dL RDW (11.7-14.4) % Plt Count (182-369) x10^3/uL MPV (9.4-12.3) fL Gran % (34.0-71.1) % Immature Gran % (Auto) (0.001-0.429) % Nucleat RBC Rel Count (0.00-0.2) % Eos # (Auto) (0.04-0.36) x10^3/uL Immature Gran # (Auto) (0.001-0.031) x10^3u/L Absolute Lymphs (auto) (1.18-3.74) x10^3/uL Absolute Monos (auto) (0.24-0.86) x10^3/uL Absolute Nucleated RBC (0.00-0.012) x10^3u/L Lymphocytes % (19.3-51.7) % Monocytes % (4.7-12.5) % Eosinophils % (0.7-5.8) % Basophils % (0.1-1.2) % Absolute Granulocytes (1.56-6.13) x10^3/uL Basophils # (0.01-0.08) x10^3/uL ESR (0-20) mm/hr PT 21.2 H (9.4-12.5) SECONDS INR 2.04 (0.8-3.0) Sodium (135-145) mmol/L Potassium (3.5-5.1) mmol/L Chloride (98-107) mmol/L Carbon Dioxide (22-30) mmol/L Anion Gap (5-15) MEQ/L BUN (7-17) mg/dL Creatinine (0.52-1.04) mg/dL Estimated GFR ML/MIN Glucose (74-106) mg/dL Lactic Acid (0.4-2.0) Calcium (8.4-10.2) mg/dL Magnesium (1.6-2.3) mg/dL Total Bilirubin (0.2-1.3) mg/dL AST (14-36) U/L ALT (0-35) U/L Alkaline Phosphatase (38-126) U/L Creatine Kinase (30-135) U/L Troponin I (0.000-0.033) ng/mL NT-Pro-B Natriuret Pep (<300) pg/mL Serum Total Protein (6.3-8.2) g/dL Albumin (3.5-5.0) g/dL Amylase (30-110) U/L Lipase (23-300) U/L Urine Color Yellow (Yellow) Urine Appearance Clear (Clear) Urine pH 6.5 (4.6-8.0) Ur Specific [place] 1.010 (1.005-1.030) Urine Protein Negative (Negative) Urine Glucose (UA) Negative (Negative) mg/dL Urine Ketones Negative (Negative) Urine Blood Negative (Negative) Urine Nitrite Negative (Negative) Urine Bilirubin Negative (Negative) Urine Urobilinogen 1.0 A (0.2) mg/dL Ur Leukocyte Esterase Trace A (Negative) U Hyaline Cast (Auto) NONE SEEN (0-2) /LPF Urine Microscopic RBC 0-2 (0-5) /HPF Urine Microscopic WBC 0-2 (0-5) /HPF Ur Epithelial Cells None Seen (None Seen) /HPF Urine Bacteria None Seen (None Seen) /HPF Urine Culture Reflexed NO (NO) Ethyl Alcohol (0-10) mg/dL - Radiology Impressions Radiology Exams & Impressions: Radiology Procedures Category Date Time Status CHEST 1 VIEW (PORTABLE) Stat Exams 03/09/25 08:16 Completed ECHO W/2D AND DOPPLER [US] Routine Exams 03/09/25 11:34 Ordered - Other Procedures and Tests Respiratory Therapy 03/09/25 10:00 Respiratory Therapy Consult ONCE 03/09/25 11:33 EKG REPEAT IN AM Assessment/Plan (1) Atrial fibrillation with RVR Current Visit: Yes Status: Acute Assessment & Plan: -Continue diltiazem infusion for rate control; transition to oral as tolerated. -Maintain telemetry monitoring and strict I&O. -Continue therapeutic anticoagulation (patient reports adherence)-managed coumadin OP with [facility] pharmacy coumadin clinic -Trend electrolytes; replete potassium >4.0 and magnesium >2.0 to reduce arrhythmia risk - replenish potassium - MG WNL at 2.0 -Obtain echocardiogram to evaluate cardiac function and structure given elevated BNP and no recent echo. -Cardiology consult Code(s): I48.91 - UNSPECIFIED ATRIAL FIBRILLATION (2) Community acquired pneumonia Current Visit: Yes Status: Acute Assessment & Plan: -Continue ceftriaxone + azithromycin -Monitor fever curve, WBC, oxygenation, symptoms. -Encourage pulmonary hygiene, early mobilization. -Repeat CXR only if clinical status worsens -Supplemental oxygen to maintain spo2 > 92% currently on RA Code(s): J18.9 - PNEUMONIA, UNSPECIFIED ORGANISM (3) JARED (acute kidney injury) Current Visit: Yes Status: Acute Assessment & Plan: -Creat at 1.37- baseline around 0.9 - Hold nephrotoxins. -Monitor renal/lytes daily -Received 1L fluid bolus in ED -Gentle IV fluids as tolerated, monitor for volume overload. Code(s): N17.9 - ACUTE KIDNEY FAILURE, UNSPECIFIED (4) Hypokalemia Current Visit: Yes Status: Acute Assessment & Plan: -Potassium level at 3.3- replenish per protocol -Optimize with K+ > 4 and MG >2 -Tele Code(s): E87.6 - HYPOKALEMIA (5) Transaminitis Current Visit: Yes Status: Acute Assessment & Plan: -Mild elevation; monitor. -Consider hepatitis panel, RUQ US if persistent or worsening Code(s): R74.01 - ELEVATION OF LEVELS OF LIVER TRANSAMINASE LEVELS (6) HTN (hypertension) Current Visit: Yes Status: Acute Assessment & Plan: -monitor inpatient closely while on cardizem drip Code(s): I10 - ESSENTIAL (PRIMARY) HYPERTENSION (7) Osteoarthritis Current Visit: Yes Status: Acute Assessment & Plan: -continue home regimen Code(s): M19.90 - UNSPECIFIED OSTEOARTHRITIS, UNSPECIFIED SITE (8) History of DVT (deep vein thrombosis) Current Visit: Yes Status: Acute Assessment & Plan: -On coumadin -History of 2 DVT right leg -Pharmacy doses coumadin as OP will have pharm manage while IP Code(s): Z86.718 - PERSONAL HISTORY OF OTHER VENOUS THROMBOSIS AND EMBOLISM (9) senior care current use of anticoagulant Current Visit: Yes Status: Acute Assessment & Plan: -see DVT Code(s): Z79.01 - INTERMEDIATE (CURRENT) USE OF ANTICOAGULANTS (10) Anxiety and depression Current Visit: Yes Status: Acute Assessment & Plan: -continue home meds VTE: Coumadin PPI: protonix Dispo: 2-3 days Code status: Full Code This patient required critical care services due to acute atrial fibrillation with rapid ventricular response complicated by hypotension risk, acute kidney injury, hypokalemia, and community-acquired pneumonia with concern for sepsis physiology. The patient was at high risk for imminent life- threatening deterioration from arrhythmia, hemodynamic collapse, and/or respiratory compromise. My care included continuous hemodynamic monitoring, serial interpretation of electrocardiograms, titration of intravenous diltiazem infusion, initiation and monitoring of empiric IV antibiotics, evaluation and management of acute kidney injury, electrolyte repletion, interpretation of laboratory and radiographic studies, and coordination with pharmacy for warfarin management. Total critical care time provided by me was 45 mins, exclusive of separately billable procedures and without overlap of time spent by other providers. Code(s): F41.9 - ANXIETY DISORDER, UNSPECIFIED; F32.A - DEPRESSION, UNSPECIFIED <STU PALACIOS - Last Filed: 03/09/25 22:13> History of Present Illness - Chief Complaint History of Present Illness: is a 69 year old female. - Physical Exam Vital Signs: Vital Signs - 24 hr Temp Pulse Pulse Resp BP BP Pulse Ox 03/09/25 21:30 123 H 23 128/90 94 L 03/09/25 21:23 144 H 16 120/93 92 L 03/09/25 21:00 131 H 18 116/91 93 L 03/09/25 20:46 127 H 22 102/88 93 L 03/09/25 20:31 131 H 17 148/118 96 03/09/25 20:18 130 H 15 113/86 95 03/09/25 20:00 98 F 129 H 22 122/93 95 03/09/25 19:45 118 H 17 127/102 94 L 03/09/25 19:30 126 H 18 127/99 93 L 03/09/25 19:16 121 H 15 99/77 93 L 03/09/25 19:04 135 H 18 95 03/09/25 19:00 125 H 23 114/95 93 L 03/09/25 18:45 114 H 17 124/102 91 L 03/09/25 18:31 121 H 20 132/105 94 L 03/09/25 18:23 118 H 19 113/91 93 L 03/09/25 18:16 96 03/09/25 18:00 130 H 22 132/90 94 L 03/09/25 17:46 134 H 20 122/88 93 L 03/09/25 17:30 120 H 19 99/82 96 03/09/25 17:15 131 H 17 121/95 96 03/09/25 17:00 127 H 24 122/95 97 03/09/25 16:45 108 H 13 124/97 95 03/09/25 16:31 114 H 14 127/94 94 L 03/09/25 16:16 115 H 16 111/80 95 03/09/25 16:00 97.7 F 129 H 18 123/88 94 L 03/09/25 15:57 119 H 23 118/95 03/09/25 15:51 93 L 03/09/25 15:49 145 H 24 93 L 03/09/25 15:45 102 H 118/95 94 L 03/09/25 15:30 123 H 16 117/96 93 L 03/09/25 15:18 126 H 20 109/90 93 L 03/09/25 15:00 141 H 124/84 97 03/09/25 14:45 122 H 20 111/80 94 L 03/09/25 14:30 134 H 19 101/75 95 03/09/25 14:15 142 H 20 107/86 97 03/09/25 14:10 155 H 23 153/63 96 03/09/25 13:46 151 H 23 127/95 96 03/09/25 13:31 157 H 28 H 97 03/09/25 13:15 168 H 17 100/81 97 03/09/25 13:01 131 H 13 124/84 96 03/09/25 12:56 144 H 13 122/93 94 L 03/09/25 12:48 141 H 13 94 L 03/09/25 12:40 97.9 F 163 H 17 111/76 98 03/09/25 12:36 157 H 15 100/81 03/09/25 12:34 138 H 16 100/81 92 L 03/09/25 12:16 141 H 21 101/72 95 03/09/25 12:01 143 H 20 119/71 96 03/09/25 11:47 158 H 19 103/84 03/09/25 11:46 171 H 15 103/84 96 03/09/25 11:34 151 H 14 111/76 97 03/09/25 11:28 93/77 97 03/09/25 11:00 144 H 14 124/104 96 03/09/25 10:32 153 H 12 109/92 95 03/09/25 10:28 160 H 99 03/09/25 10:25 98 03/09/25 10:01 142 H 13 103/86 96 03/09/25 09:30 161 H 22 111/93 96 03/09/25 09:01 163 H 19 126/89 03/09/25 08:46 142 H 12 102/80 93 L 03/09/25 08:44 129 H 18 112/77 94 L 03/09/25 08:33 135 H 12 112/77 95 03/09/25 08:12 97.9 F 170 H 18 109/92 98 Results - Labs Lab/Micro Results: Lab Results-Last 24 Hours 03/09/25 03/09/25 03/09/25 Range/Units 08:15 08:28 08:28 WBC 11.1 H (3.98-10.04) x10^3/uL RBC 4.90 (3.93-5.22) x10^6/uL Hgb 13.4 (11.2-15.7) g/dL Hct 43.1 (34.1-44.9) % MCV 88.0 (79.4-94.8) fL MCH 27.3 (25.6-32.2) pg MCHC 31.1 L (32.2-35.5) g/dL RDW 14.6 H (11.7-14.4) % Plt Count 256 (182-369) x10^3/uL MPV 10.4 (9.4-12.3) fL Gran % 76.7 H (34.0-71.1) % Immature Gran % (Auto) 0.7 H (0.001-0.429) % Nucleat RBC Rel Count 0.0 (0.00-0.2) % Eos # (Auto) 0.15 (0.04-0.36) x10^3/uL Immature Gran # (Auto) 0.08 H (0.001-0.031) x10^3u/L Absolute Lymphs (auto) 1.73 (1.18-3.74) x10^3/uL Absolute Monos (auto) 0.59 (0.24-0.86) x10^3/uL Absolute Nucleated RBC 0.00 (0.00-0.012) x10^3u/L Lymphocytes % 15.6 L (19.3-51.7) % Monocytes % 5.3 (4.7-12.5) % Eosinophils % 1.3 (0.7-5.8) % Basophils % 0.4 (0.1-1.2) % Absolute Granulocytes 8.52 H (1.56-6.13) x10^3/uL Basophils # 0.05 (0.01-0.08) x10^3/uL ESR 19 (0-20) mm/hr PT (9.4-12.5) SECONDS INR (0.8-3.0) Sodium 142 (135-145) mmol/L Potassium 3.3 L (3.5-5.1) mmol/L Chloride 105 (98-107) mmol/L Carbon Dioxide 27 (22-30) mmol/L Anion Gap 13.9 (5-15) MEQ/L BUN 18 H (7-17) mg/dL Creatinine 1.37 H (0.52-1.04) mg/dL Estimated GFR 42.3 ML/MIN Glucose 147 H (74-106) mg/dL Lactic Acid 1.6 (0.4-2.0) Calcium 9.0 (8.4-10.2) mg/dL Magnesium 2.2 (1.6-2.3) mg/dL Total Bilirubin 0.60 (0.2-1.3) mg/dL AST 52 H (14-36) U/L ALT 110 H (0-35) U/L Alkaline Phosphatase 117 (38-126) U/L Creatine Kinase 45 (30-135) U/L Troponin I < 0.012 (0.000-0.033) ng/mL NT-Pro-B Natriuret Pep 5220 (<300) pg/mL Serum Total Protein 6.7 (6.3-8.2) g/dL Albumin 4.0 (3.5-5.0) g/dL Amylase 80 (30-110) U/L Lipase 148 (23-300) U/L TSH 3rd Generation (0.470-4.680) mIU/L Urine Color (Yellow) Urine Appearance (Clear) Urine pH (4.6-8.0) Ur Specific [place] (1.005-1.030) Urine Protein (Negative) Urine Glucose (UA) (Negative) mg/dL Urine Ketones (Negative) Urine Blood (Negative) Urine Nitrite (Negative) Urine Bilirubin (Negative) Urine Urobilinogen (0.2) mg/dL Ur Leukocyte Esterase (Negative) U Hyaline Cast (Auto) (0-2) /LPF Urine Microscopic RBC (0-5) /HPF Urine Microscopic WBC (0-5) /HPF Ur Epithelial Cells (None Seen) /HPF Urine Bacteria (None Seen) /HPF Urine Culture Reflexed (NO) Ethyl Alcohol < 10 (0-10) mg/dL 03/09/25 03/09/25 03/09/25 Range/Units 08:28 09:09 12:07 WBC (3.98-10.04) x10^3/uL RBC (3.93-5.22) x10^6/uL Hgb (11.2-15.7) g/dL Hct (34.1-44.9) % MCV (79.4-94.8) fL MCH (25.6-32.2) pg MCHC (32.2-35.5) g/dL RDW (11.7-14.4) % Plt Count (182-369) x10^3/uL MPV (9.4-12.3) fL Gran % (34.0-71.1) % Immature Gran % (Auto) (0.001-0.429) % Nucleat RBC Rel Count (0.00-0.2) % Eos # (Auto) (0.04-0.36) x10^3/uL Immature Gran # (Auto) (0.001-0.031) x10^3u/L Absolute Lymphs (auto) (1.18-3.74) x10^3/uL Absolute Monos (auto) (0.24-0.86) x10^3/uL Absolute Nucleated RBC (0.00-0.012) x10^3u/L Lymphocytes % (19.3-51.7) % Monocytes % (4.7-12.5) % Eosinophils % (0.7-5.8) % Basophils % (0.1-1.2) % Absolute Granulocytes (1.56-6.13) x10^3/uL Basophils # (0.01-0.08) x10^3/uL ESR (0-20) mm/hr PT 21.2 H (9.4-12.5) SECONDS INR 2.04 (0.8-3.0) Sodium (135-145) mmol/L Potassium (3.5-5.1) mmol/L Chloride (98-107) mmol/L Carbon Dioxide (22-30) mmol/L Anion Gap (5-15) MEQ/L BUN (7-17) mg/dL Creatinine (0.52-1.04) mg/dL Estimated GFR ML/MIN Glucose (74-106) mg/dL Lactic Acid (0.4-2.0) Calcium (8.4-10.2) mg/dL Magnesium (1.6-2.3) mg/dL Total Bilirubin (0.2-1.3) mg/dL AST (14-36) U/L ALT (0-35) U/L Alkaline Phosphatase (38-126) U/L Creatine Kinase (30-135) U/L Troponin I < 0.012 (0.000-0.033) ng/mL NT-Pro-B Natriuret Pep (<300) pg/mL Serum Total Protein (6.3-8.2) g/dL Albumin (3.5-5.0) g/dL Amylase (30-110) U/L Lipase (23-300) U/L TSH 3rd Generation (0.470-4.680) mIU/L Urine Color Yellow (Yellow) Urine Appearance Clear (Clear) Urine pH 6.5 (4.6-8.0) Ur Specific [place] 1.010 (1.005-1.030) Urine Protein Negative (Negative) Urine Glucose (UA) Negative (Negative) mg/dL Urine Ketones Negative (Negative) Urine Blood Negative (Negative) Urine Nitrite Negative (Negative) Urine Bilirubin Negative (Negative) Urine Urobilinogen 1.0 A (0.2) mg/dL Ur Leukocyte Esterase Trace A (Negative) U Hyaline Cast (Auto) NONE SEEN (0-2) /LPF Urine Microscopic RBC 0-2 (0-5) /HPF Urine Microscopic WBC 0-2 (0-5) /HPF Ur Epithelial Cells None Seen (None Seen) /HPF Urine Bacteria None Seen (None Seen) /HPF Urine Culture Reflexed NO (NO) Ethyl Alcohol (0-10) mg/dL 03/09/25 03/09/25 03/09/25 Range/Units 12:10 17:20 17:20 WBC (3.98-10.04) x10^3/uL RBC (3.93-5.22) x10^6/uL Hgb (11.2-15.7) g/dL Hct (34.1-44.9) % MCV (79.4-94.8) fL MCH (25.6-32.2) pg MCHC (32.2-35.5) g/dL RDW (11.7-14.4) % Plt Count (182-369) x10^3/uL MPV (9.4-12.3) fL Gran % (34.0-71.1) % Immature Gran % (Auto) (0.001-0.429) % Nucleat RBC Rel Count (0.00-0.2) % Eos # (Auto) (0.04-0.36) x10^3/uL Immature Gran # (Auto) (0.001-0.031) x10^3u/L Absolute Lymphs (auto) (1.18-3.74) x10^3/uL Absolute Monos (auto) (0.24-0.86) x10^3/uL Absolute Nucleated RBC (0.00-0.012) x10^3u/L Lymphocytes % (19.3-51.7) % Monocytes % (4.7-12.5) % Eosinophils % (0.7-5.8) % Basophils % (0.1-1.2) % Absolute Granulocytes (1.56-6.13) x10^3/uL Basophils # (0.01-0.08) x10^3/uL ESR (0-20) mm/hr PT (9.4-12.5) SECONDS INR (0.8-3.0) Sodium (135-145) mmol/L Potassium 3.5 (3.5-5.1) mmol/L Chloride (98-107) mmol/L Carbon Dioxide (22-30) mmol/L Anion Gap (5-15) MEQ/L BUN (7-17) mg/dL Creatinine (0.52-1.04) mg/dL Estimated GFR ML/MIN Glucose (74-106) mg/dL Lactic Acid (0.4-2.0) Calcium (8.4-10.2) mg/dL Magnesium (1.6-2.3) mg/dL Total Bilirubin (0.2-1.3) mg/dL AST (14-36) U/L ALT (0-35) U/L Alkaline Phosphatase (38-126) U/L Creatine Kinase (30-135) U/L Troponin I < 0.012 (0.000-0.033) ng/mL NT-Pro-B Natriuret Pep (<300) pg/mL Serum Total Protein (6.3-8.2) g/dL Albumin (3.5-5.0) g/dL Amylase (30-110) U/L Lipase (23-300) U/L TSH 3rd Generation 2.148 (0.470-4.680) mIU/L Urine Color (Yellow) Urine Appearance (Clear) Urine pH (4.6-8.0) Ur Specific [place] (1.005-1.030) Urine Protein (Negative) Urine Glucose (UA) (Negative) mg/dL Urine Ketones (Negative) Urine Blood (Negative) Urine Nitrite (Negative) Urine Bilirubin (Negative) Urine Urobilinogen (0.2) mg/dL Ur Leukocyte Esterase (Negative) U Hyaline Cast (Auto) (0-2) /LPF Urine Microscopic RBC (0-5) /HPF Urine Microscopic WBC (0-5) /HPF Ur Epithelial Cells (None Seen) /HPF Urine Bacteria (None Seen) /HPF Urine Culture Reflexed (NO) Ethyl Alcohol (0-10) mg/dL Microbiology 03/09/25 Unknown Stool Culture Result 1 - Final Stool Not Reportable Stool Culture Result 2 - Final Not Reportable Stool Culture Result 3 - Final Not Reportable Stool Culture Result 4 - Final Not Reportable Stool Culture Organism Suscept - Final Not Reportable Campylobacter Result 1 - Final Not Reportable Campylobacter Result 2 - Final Not Reportable Campylobactor Result 3 - Final Not Reportable Campylobacter Result 4 - Final Not Reportable Campylobactor Susceptibility - Final Not Reportable - Radiology Impressions Radiology Exams & Impressions: Radiology Procedures Category Date Time Status CHEST 1 VIEW (PORTABLE) Stat Exams 03/09/25 08:16 Completed ECHO W/2D AND DOPPLER [US] Routine Exams 03/09/25 11:34 Taken - Other Procedures and Tests Respiratory Therapy 03/09/25 11:33 EKG REPEAT IN AM SUAD Encounter - SUAD Encounter Attestation SUAD Encounter Attestation: "IhavepersonallyseenandexaminedWRMAYUR,SAMIA KNOTT andhavediscussed pertinent aspects of their care with Erin Lopez agree with the history, physical exam (any modifications based on my personal exam will be noted below), assessment, and plan as outlined in original note. Please see immediately below for my summary of findings and additional assessment and plan along with any meaningful corrections/explanations to the Subjective/Objective portions of the SUAD note will be noted." My portion of the encounter took place via telemedicine. 69 y/o with history of afib presenting with afib with RVR, pneumonia, JARED. Patient on metoprolol at home, denies missing any doses. Initially required diltiazem drip, switched to amiodarone drip by cardiology due to continued tachycardia. Rate is now better controlled. Will continue to monitor patient in the ICU.
[2025-03-09] MEDS ORDERED: Nitrostat 0.4 MG Tablet SL PRN (12:20)
[2025-03-09] MEDS: Protonix 40MG Tablet PO SCH (12:23)
[2025-03-09] MEDS: Klor Con PO SCH (12:23)
--- NOTE | 2025-03-09 13:22 | PCM.CONS ---
History of Present Illness - Date of Consult Date of Encounter: 03/09/25 Consulting Clinical Staff Pharmacist: GRABIEL MORIN MD Requesting Provider: Attending Provider: STU PALACIOS MD Primary Care Provider: PCP: [facility] Consent was: Given for this tele-med encounter - Consult Narrative Reason for Consult: Atrial fibrillation with rapid ventricular response HPI: Patient is a 69 yo female with history of paroxysmal atrial fibrillation (single episode at time of CCK - ECG not available), HTN, DVT x2 in right LE (warfarin started before bout of atrial fibrillation), and DJD who is referred for management of atypical atrial flutter with a rapid ventricular response. She gives a 5-day history of nausea, diarrhea, and cold sweats. She denies any fevers, palpitations, shortness of breath, or cough. She has chest tightness 2 days prior to admission lasting throughout the day which was not related to exertion or meals. She went to see her PCP who noted her very rapid heart rate. ECG showed patient to be in atypical atrial flutter with VAVB at 148 bpm. She was sent to our ER and was started on a diltiazem infusion. It was titrated up to 10 mg/hr and her VR remais rapid as high as the 160s at times.She only knows of her atrial arrhythmia because of the medical staff. She cannot tell that her HR is rapid. cc:: The requesting physician will be sent a copy of the consult. Review of Systems - Review of Systems All systems: all other systems reviewed and were unremarkable (Denies any melena, hematochezia, or hematemesis on warfarin. INR has been easy to control in reviewing her labs. As HPI.) - Past Medical History Past Medical History: Yes Neurological History: No Pertinent History ENT History: No Pertinent History Cardiac History: Arrhythmia, High Cholesterol, Hypertension Respiratory History: Pneumonia Endocrine Medical History: No Pertinent History Musculoskelatal History: Osteoarthritis GI Medical History: Polyps History: No Pertinent History Pyscho-Social History: Anxiety, Depression Reproductive Disorders: No Pertinent History Comment: HISTORY OF BACK PAIN, BLOOD CLOTS IN THE R LE DUE TO POST-COVID. - Past Surgical History Past Surgical History: Yes Neuro Surgical History: No Pertinent History Cardiac History: No Pertinent History Respiratory Surgery: No Pertinent History GI Surgical History: Cholecystectomy Genitourinary Surgical Hx: No Pertinent History Musculskeletal Surgical Hx: Joint Replacement Female Surgical History: Hysterectomy Other Surgical History: LTK, meniscus yoana knees, "4 knee surgeries" Significant Family History: heart disease, cancer, diabetes, stroke - Social History Smoking Status: Never smoker Exposure to second hand smoke: No Alcohol: None Drug Use: none - Social Determinants of Health Will the patient participate in the screening: Declined to provide Medications & Allergies Home Medications: Home Medication List Gabapentin 600 mg PO BID 06/11/16 [History Confirmed 03/09/25] Hydrocodone/Acetaminophen [Yellow Jacket 5-325 Tablet] 1 tab PO BIDPRN PRN 06/11/16 [History Confirmed 03/09/25] Zolpidem Tartrate [Ambien] 10 mg PO HS 06/11/16 [History Confirmed 03/09/25] Atorvastatin Calcium 40 mg PO HS 06/24/16 [History Confirmed 03/09/25] Furosemide 80 mg [Lasix 80 mg] 80 mg PO QAM 06/24/16 [History Confirmed 0 03/09/25] Metoprolol Tartrate 25 mg [Lopressor 25MG Tab] 25 mg PO QAM 06/24/16 [History Confirmed 03/09/25] Nitroglycerin 0.4 mg Tablet [Nitrostat 0.4 MG Tablet] 0.4 mg SL Q5MIN PRN MR X 3 PRN #1 bottle 06/25/16 [Rx Confirmed 03/09/25] Allopurinol 300 mg [Zyloprim 300 mg] 300 mg PO DAILY 11/10/21 [History Confirmed 03/09/25] Hydroxyzine HCl 25 mg [Atarax 25 mg] 1 tab PO BIDPRN PRN 12/17/21 [History Confirmed 03/09/25] Furosemide 40 mg PO 1300 03/09/25 [History Confirmed 03/09/25] Metoprolol Tartrate 25 mg [Lopressor 25MG Tab] 25 mg PO 1300 03/09/25 [History Confirmed 03/09/25] Potassium Chloride Tab* [Klor Con] 20 meq PO 1300 03/09/25 [History Confirmed 03/09/25] Potassium Chloride Tab* [Klor Con] 40 meq PO QAM 03/09/25 [History Confirmed 03/09/25] Venlafaxine HCl [Venlafaxine HCl ER] 150 mg PO QAM 03/09/25 [History Confirmed 03/09/25] Warfarin Sodium 2 mg PO SUTUTHSA 03/09/25 [History Confirmed 03/09/25] Warfarin Sodium 3 mg PO MOWEFR 03/09/25 [History Confirmed 03/09/25] Allergies/Adverse Reactions: Allergies Allergy/AdvReac Type Severity Reaction Status Date / Time Horse/Equine Containing Allergy Intermediate Hives Verified 12/17/21 08:14 Products Iodinated Contrast Media Allergy Intermediate Swelling Verified 12/17/21 08:14 [Iodinated Contrast Media - Oral and] tetanus and diphtheria Allergy Intermediate Nausea and Verified 12/17/21 08:14 toxoids Vomiting Exam - Vitals Vital Signs: Vital Signs - 24 hr Temp Pulse Pulse Resp BP BP Pulse Ox 03/09/25 12:36 157 H 15 100/81 03/09/25 11:47 158 H 19 103/84 03/09/25 11:00 144 H 14 124/104 96 03/09/25 10:32 153 H 12 109/92 95 03/09/25 10:28 160 H 99 03/09/25 10:25 98 03/09/25 10:01 142 H 13 103/86 96 03/09/25 09:30 161 H 22 111/93 96 03/09/25 09:01 163 H 19 126/89 03/09/25 08:46 142 H 12 102/80 93 L 03/09/25 08:44 129 H 18 112/77 94 L 03/09/25 08:33 135 H 12 112/77 95 03/09/25 08:12 97.9 F 170 H 18 109/92 98 General:: no acute distress HEENT: EOMI Cardiovascular Exam: tachycardia, irregular, No murmur, No friction rub, No gallop Respiratory Exam: lungs clear SpO2: 96 Gastrointestinal/Abdomen Exam: normal bowel sounds Extremity Exam: other (2+ pedal pulses), No edema Neurologic: other (Grossly non-focal.) Results Vital Signs: Vital Signs - 24 hr Temp Pulse Pulse Resp BP BP Pulse Ox 03/09/25 12:36 157 H 15 100/81 03/09/25 11:47 158 H 19 103/84 03/09/25 11:00 144 H 14 124/104 96 03/09/25 10:32 153 H 12 109/92 95 03/09/25 10:28 160 H 99 03/09/25 10:25 98 03/09/25 10:01 142 H 13 103/86 96 03/09/25 09:30 161 H 22 111/93 96 03/09/25 09:01 163 H 19 126/89 03/09/25 08:46 142 H 12 102/80 93 L 03/09/25 08:44 129 H 18 112/77 94 L 03/09/25 08:33 135 H 12 112/77 95 03/09/25 08:12 97.9 F 170 H 18 109/92 98 Pain Assessment - Last Documented Pain Intensity 0 Intake and Output: Intake & Output 03/07/25 03/08/25 03/09/25 03/10/25 11:59 11:59 11:59 11:59 Weight 90.718 kg LAB: I have reviewed the Labs in [facility]. Radiology Exams: Radiology Procedures Category Date Time Status CHEST 1 VIEW (PORTABLE) Stat Exams 03/09/25 08:16 Completed ECHO W/2D AND DOPPLER [US] Routine Exams 03/09/25 11:34 Ordered CXR (AP) 03/09/2025: Again hyperinflated with new hazy right infrahilar interstitial alveolar opacities, possible pneumonia/pneumonitis. No consolidation/large effusion. Heart now borderline enlarged. TTE 06/27/2016 1) NO DEFINITE REGIONAL WALL MOTION ABNORMALITY. ESTIMATED GLOBAL LEFT VENTRICULAR EJECTION FRACTION BETWEEN 50 AND 60%. 2) TRACE MITRAL REGURGITATION. 3) TRACE TRICUSPID REGURGITATION. RIGHT VENTRICULAR SYSTOLIC PRESSURE OF 26 MM OF MERCURY. Tracing 1 Attestation: I have reviewed this EKG and interpreted as documented below. EKG Narrative: ECGs 03/09/2025 at 0756: Atypical atrial flutter with VAVB at 148 bpm. RAD. [place] [address] and T wave abnormalities. 10/17/2024: NSR at 65 bpm. Incomplete RBBB. Nonspecific T wave abnormality. Telemetry 03/09/2025 at 1141: Atrial flutter with VAVB at 163 bpm. Multi-Disciplinary Progress Notes: Multi-Disciplinary Progress Notes 03/09/25 12:36 Pharmacy Note by Handy Bautista Patient continued on current home dose of Coumadin. 3mg on Mon-Wed-Sun. 2mg on Brh-Wog-Rtxk-Sat. Will monitor INR and adjust dose if needed. Initialized on 03/09/25 12:36 - END OF NOTE Assessment & Plan (1) Atypical atrial flutter Current Visit: Yes Status: Acute Assessment & Plan: Paroxysmal atypical atrial flutter - Onset unknown as patient appears asymptomatic. VR remains rapid on home metoprolol plus diliazem 10 mg/hr with intermittent borderline low SBP. INR is therapeutic on warfarin. Will start amiodarone infusion to better control ventricular response and possibly nesha mically cardiovert to sinus rhythm. Will attempt to wean down and ultimately discontinue diltiazem infusion after starting amiodarone. Will discuss amiodarone oral loading dose vs Multaq tomorrow. Will need to decrease warfarin dose by 30-50% if amiodarone is started but not with Multaq. If amiodarone is continued, will also discuss option of changing warfarin to Eliquis. This represents her second bout of an atrial arrhythmia. First occurred two years ago at the time of her cholecystectomy. Documentation is not available. but she was given the diagnosis of atrial fibrillation at that time. She was already on systemic anticoagulation with warfarin prior to this diagnosis. Code(s): I48.4 - ATYPICAL ATRIAL FLUTTER (2) Chest pain Current Visit: No Status: Acute Qualifiers: Chest pain type: other chest pain Qualified Code(s): R07.89 - Other chest pain; R07.8 - Other chest pain Assessment & Plan: Nonspecific. Troponin-I negative x2 two days after prolonged episode making CAD a less likely cause. Not obviously related to onset of atrial flutter as she has been asymptomatic on other days with VR in 160s. Possibly related to pulmonary infection. Elective MPS could be considered with her guidance and control system engineer, Dr. Andrea Dill, post discharge. Code(s): R07.9 - CHEST PAIN, UNSPECIFIED (3) Viral syndrome Current Visit: Yes Status: Acute Assessment & Plan: 5 day history of symptoms prior to admission. - Encounter Encounter: The entirety of this encounter was performed via Telemedicine using audio and visual. Permission granted by patient including audio and video. Case discussed with Jaylyn Woods NP. Will follow with you. Grabiel Morin MD [facility] [phone]
[2025-03-09] MEDS: Sodium Chloride 0.9% W/ 20 mEq KCl/LITER 1,000 ML IV SCH (13:26)
[2025-03-09] MEDS: PHARMACY DOSING REQUEST MC ONE (13:43)
[2025-03-09] MEDS: Cordarone 150 MG/3 ML Injection*** 150 MG in D5w 100ML Mini Bag 100 ML 100 ML IV ONE (14:55)
[2025-03-09] MEDS: Lopressor 25MG Tab PO ONE (15:00)
[2025-03-09] MEDS: NEXTERONE 360 MG/200 ML BAG 360 MG/200 ML PLAST..BAG IV SCH (15:29)
[2025-03-09] MEDS ORDERED: VENTOLIN COMMON CANISTER IH PRN (15:52)
[2025-03-09] MEDS: Coumadin 3 MG PO SCH (17:43)
[2025-03-09] MEDS: NEURONTIN PO SCH (21:00)
[2025-03-09] MEDS: Zocor 10MG PO SCH (21:00)
[2025-03-09] MEDS: Ambien 10 MG PO SCH (21:02)
[2025-03-09] MEDS: Lopressor 25MG Tab PO SCH (23:23)
[2025-03-10] MEDS: Lasix 20 MG/2 ML IV ONE (02:15)
[2025-03-10] MEDS ORDERED: Lopressor 25MG Tab PO SCH ×5 (05:00→22:00)
--- NOTE | 2025-03-10 05:37 | PCM.NOTE ---
Date and Time: 03/10/25 0530 Subjective Assessment: is a 69 year old female with pmhx of atrial fibrillation on anticoagulation, hypertension, osteoarthritis, anxiety, depression, and prior DVT (right leg on coumadin) who presented to the emergency department on 03/09/25 after being referred from urgent care for atrial fibrillation with rapid ventr icular response. She reports feeling unwell for the past 45 days with nonspecific malaise, cold sweats, diarrhea, dyspnea, and nausea prompting her to seek care at [facility] earlier today. She reports > 5 diarrheal stools per day. Viral swabs obtained there were negative. However, she continued to feel poorly and an EKG performed in clinic demonstrated atrial fibrillation with rapid ventricular response, prompting transfer to the ED. She denies chest pain, dyspnea, fever, palpitations, syncope, recent falls, or missed doses of her blood thinner. She also denies calf pain, swelling, or symptoms suggestive of DVT or pulmonary embolism. On arrival, her heart rate was in the 170s, otherwise vitals were stable. EKG showed atrial fibrillation with rapid ventricular response, ventricular rate 148 bpm, QRS 93 ms, QTc 491 ms. Lab findings significant for WBC 11.1, potassium 3.3, creatinine 1.37 (baseline 0.9), AST 52, ALT 110, and BNP 5220. CXR revealed hyperinflated lungs with new hazy right infrahilar interstitial/alveolar opacities concerning for pneumonia or pneumonitis, borderline cardiomegaly, no consolidation or effusion, with background osteopenia and minimal scoliosis. No recent echocardiogram is available for comparison. She was admitted for management of atrial fibrillation with RVR and pneumonia. 03/10/25: Patient evaluated at bedside. Reports progressive dyspnea this morning with associated nausea and vomiting overnight, likely reflecting worsening volume status. CT chest notable for cardiomegaly, pulmonary edema, and bilateral pleural effusions, favoring acute decompensated heart failure over simple fluid overload. Echocardiogram demonstrates severely reduced systolic function with LVEF 2530%. Cardiology is involved; IV diuresis initiated with ongoing monito ring of response. Rate control strategy adjusted Cardizem drip discontinued given reduced EF, and metoprolol tartrate started at 25 mg PO BID. Amiodarone infusion continued per protocol, with transition to oral therapy planned this evening. Despite these interventions, patient remains in Afib with HR persistently in the 130s,despite current regimen. Will discuss with cardiology today regarding strategy for improved rate control. - Review of Systems Constitutional: No Symptoms Eyes: No Symptoms Ears, Nose, & Throat: No Symptoms Respiratory: Cough, Short Of Breath Cardiac: No Symptoms Abdominal/Gastrointestinal: No Symptoms Genitourinary Symptoms: No Symptoms Musculoskeletal: No Symptoms Skin: No Symptoms Neurological: No Symptoms Psychological: No Symptoms Endocrine: No Symptoms Hematologic/Lymphatic: No Symptoms Immunological/Allergic: No Symptoms Objective Exam General Appearance: no apparent distress Neurologic Exam: alert, oriented x 3, cooperative Skin Exam: ecchymosis, pale Eye Exam: PERRL Ears, Nose, Throat Exam: normal ENT inspection Neck Exam: JVD Respiratory Exam: crackles/rales Cardiovascular Exam: irregular Gastrointestinal/Abdomen Exam: soft, normal bowel sounds Extremity Exam: swelling (BLE trace) Back Exam: normal inspection Pelvic Exam: deferred Rectal Exam: deferred Objective Data Vital Signs: Vital Signs - 24 hr Temp Pulse Pulse Resp BP BP Pulse Ox 03/10/25 05:00 119 H 24 146/92 93 L 03/10/25 04:45 126 H 24 119/101 94 L 03/10/25 04:30 117 H 23 126/105 92 L 03/10/25 04:15 128 H 23 133/101 92 L 03/10/25 04:04 114 H 132/94 03/10/25 04:00 116 H 24 132/94 92 L 03/10/25 03:45 111 H 25 H 137/95 93 L 03/10/25 03:32 126 H 03/10/25 03:30 98.3 F 119 H 23 131/89 93 L 03/10/25 03:16 123 H 25 H 137/114 93 L 03/10/25 03:00 126 H 23 119/87 91 L 03/10/25 02:45 112 H 22 126/90 92 L 03/10/25 02:30 125 H 24 148/113 92 L 03/10/25 02:15 121 H 28 H 133/104 93 L 03/10/25 02:00 124 H 25 H 152/107 92 L 03/10/25 01:45 117 H 25 H 133/108 90 L 03/10/25 01:30 122 H 25 H 141/104 90 L 03/10/25 01:15 131 H 24 146/125 90 L 03/10/25 01:04 144 H 26 H 138/88 93 L 03/10/25 00:45 135 H 33 H 147/110 92 L 03/10/25 00:30 139 H 33 H 125/107 94 L 03/10/25 00:15 141 H 27 H 149/114 93 L 03/10/25 00:06 91 L 03/10/25 00:00 98.4 F 149 H 28 H 151/115 90 L 03/09/25 23:45 141 H 26 H 127/108 89 L 03/09/25 23:40 147 H 03/09/25 23:30 147 H 28 H 132/100 90 L 03/09/25 23:23 163 H 23 108/87 95 03/09/25 23:20 149 H 89 L 03/09/25 23:18 149 H 89 L 03/09/25 23:00 144 H 118/90 88 L 03/09/25 22:45 138 H 18 155/88 92 L 03/09/25 22:30 153 H 26 H 128/89 95 03/09/25 22:15 128 H 23 114/96 91 L 03/09/25 22:01 129 H 105/87 03/09/25 22:00 131 H 105/87 03/09/25 21:45 134 H 25 H 130/97 03/09/25 21:30 123 H 23 128/90 94 L 03/09/25 21:23 144 H 16 120/93 92 L 03/09/25 21:00 131 H 18 116/91 93 L 03/09/25 20:46 127 H 22 102/88 93 L 03/09/25 20:31 131 H 17 148/118 96 03/09/25 20:18 130 H 15 113/86 95 03/09/25 20:00 98 F 129 H 22 122/93 95 03/09/25 19:45 118 H 17 127/102 94 L 03/09/25 19:30 126 H 18 127/99 93 L 03/09/25 19:16 121 H 15 99/77 93 L 03/09/25 19:04 135 H 18 95 03/09/25 19:00 125 H 23 114/95 93 L 03/09/25 18:45 114 H 17 124/102 91 L 03/09/25 18:31 121 H 20 132/105 94 L 03/09/25 18:23 118 H 19 113/91 93 L 03/09/25 18:16 96 03/09/25 18:00 130 H 22 132/90 94 L 03/09/25 17:46 134 H 20 122/88 93 L 03/09/25 17:30 120 H 19 99/82 96 03/09/25 17:15 131 H 17 121/95 96 03/09/25 17:00 127 H 24 122/95 97 03/09/25 16:45 108 H 13 124/97 95 03/09/25 16:31 114 H 14 127/94 94 L 03/09/25 16:16 115 H 16 111/80 95 03/09/25 16:00 97.7 F 129 H 18 123/88 94 L 03/09/25 15:57 119 H 23 118/95 03/09/25 15:51 93 L 03/09/25 15:49 145 H 24 93 L 03/09/25 15:45 102 H 118/95 94 L 03/09/25 15:30 123 H 16 117/96 93 L 03/09/25 15:18 126 H 20 109/90 93 L 03/09/25 15:00 141 H 124/84 97 03/09/25 14:45 122 H 20 111/80 94 L 03/09/25 14:30 134 H 19 101/75 95 03/09/25 14:15 142 H 20 107/86 97 03/09/25 14:10 155 H 23 153/63 96 03/09/25 13:46 151 H 23 127/95 96 03/09/25 13:31 157 H 28 H 97 03/09/25 13:15 168 H 17 100/81 97 03/09/25 13:01 131 H 13 124/84 96 03/09/25 12:56 144 H 13 122/93 94 L 03/09/25 12:48 141 H 13 94 L 03/09/25 12:40 97.9 F 163 H 17 111/76 98 03/09/25 12:36 157 H 15 100/81 03/09/25 12:34 138 H 16 100/81 92 L 03/09/25 12:16 141 H 21 101/72 95 03/09/25 12:01 143 H 20 119/71 96 03/09/25 11:47 158 H 19 103/84 03/09/25 11:46 171 H 15 103/84 96 03/09/25 11:34 151 H 14 111/76 97 03/09/25 11:28 93/77 97 03/09/25 11:00 144 H 14 124/104 96 03/09/25 10:32 153 H 12 109/92 95 03/09/25 10:28 160 H 99 03/09/25 10:25 98 03/09/25 10:01 142 H 13 103/86 96 03/09/25 09:30 161 H 22 111/93 96 03/09/25 09:01 163 H 19 126/89 03/09/25 08:46 142 H 12 102/80 93 L 03/09/25 08:44 129 H 18 112/77 94 L 03/09/25 08:33 135 H 12 112/77 95 03/09/25 08:12 97.9 F 170 H 18 109/92 98 Pain Assessment - Last Documented Pain Intensity 0 Intake and Output: Intake & Output 03/07/25 03/08/25 03/09/25 03/10/25 11:59 11:59 11:59 11:59 Intake Total 1572 Balance 1572 Weight 90.718 kg 92.2 kg Lab Results: Lab Results-Last 24 Hours 03/09/25 03/09/25 03/09/25 Range/Units 08:15 08:28 08:28 WBC 11.1 H (3.98-10.04) x10^3/uL RBC 4.90 (3.93-5.22) x10^6/uL Hgb 13.4 (11.2-15.7) g/dL Hct 43.1 (34.1-44.9) % MCV 88.0 (79.4-94.8) fL MCH 27.3 (25.6-32.2) pg MCHC 31.1 L (32.2-35.5) g/dL RDW 14.6 H (11.7-14.4) % Plt Count 256 (182-369) x10^3/uL MPV 10.4 (9.4-12.3) fL Gran % 76.7 H (34.0-71.1) % Immature Gran % (Auto) 0.7 H (0.001-0.429) % Nucleat RBC Rel Count 0.0 (0.00-0.2) % Eos # (Auto) 0.15 (0.04-0.36) x10^3/uL Immature Gran # (Auto) 0.08 H (0.001-0.031) x10^3u/L Absolute Lymphs (auto) 1.73 (1.18-3.74) x10^3/uL Absolute Monos (auto) 0.59 (0.24-0.86) x10^3/uL Absolute Nucleated RBC 0.00 (0.00-0.012) x10^3u/L Lymphocytes % 15.6 L (19.3-51.7) % Monocytes % 5.3 (4.7-12.5) % Eosinophils % 1.3 (0.7-5.8) % Basophils % 0.4 (0.1-1.2) % Absolute Granulocytes 8.52 H (1.56-6.13) x10^3/uL Basophils # 0.05 (0.01-0.08) x10^3/uL ESR 19 (0-20) mm/hr PT (9.4-12.5) SECONDS INR (0.8-3.0) Sodium 142 (135-145) mmol/L Potassium 3.3 L (3.5-5.1) mmol/L Chloride 105 (98-107) mmol/L Carbon Dioxide 27 (22-30) mmol/L Anion Gap 13.9 (5-15) MEQ/L BUN 18 H (7-17) mg/dL Creatinine 1.37 H (0.52-1.04) mg/dL Estimated GFR 42.3 ML/MIN Glucose 147 H (74-106) mg/dL Lactic Acid 1.6 (0.4-2.0) Calcium 9.0 (8.4-10.2) mg/dL Magnesium 2.2 (1.6-2.3) mg/dL Total Bilirubin 0.60 (0.2-1.3) mg/dL AST 52 H (14-36) U/L ALT 110 H (0-35) U/L Alkaline Phosphatase 117 (38-126) U/L Creatine Kinase 45 (30-135) U/L Troponin I < 0.012 (0.000-0.033) ng/mL NT-Pro-B Natriuret Pep 5220 (<300) pg/mL Serum Total Protein 6.7 (6.3-8.2) g/dL Albumin 4.0 (3.5-5.0) g/dL Amylase 80 (30-110) U/L Lipase 148 (23-300) U/L TSH 3rd Generation (0.470-4.680) mIU/L Urine Color (Yellow) Urine Appearance (Clear) Urine pH (4.6-8.0) Ur Specific [place] (1.005-1.030) Urine Protein (Negative) Urine Glucose (UA) (Negative) mg/dL Urine Ketones (Negative) Urine Blood (Negative) Urine Nitrite (Negative) Urine Bilirubin (Negative) Urine Urobilinogen (0.2) mg/dL Ur Leukocyte Esterase (Negative) U Hyaline Cast (Auto) (0-2) /LPF Urine Microscopic RBC (0-5) /HPF Urine Microscopic WBC (0-5) /HPF Ur Epithelial Cells (None Seen) /HPF Urine Bacteria (None Seen) /HPF Urine Culture Reflexed (NO) Ethyl Alcohol < 10 (0-10) mg/dL 03/09/25 03/09/25 03/09/25 Range/Units 08:28 09:09 12:07 WBC (3.98-10.04) x10^3/uL RBC (3.93-5.22) x10^6/uL Hgb (11.2-15.7) g/dL Hct (34.1-44.9) % MCV (79.4-94.8) fL MCH (25.6-32.2) pg MCHC (32.2-35.5) g/dL RDW (11.7-14.4) % Plt Count (182-369) x10^3/uL MPV (9.4-12.3) fL Gran % (34.0-71.1) % Immature Gran % (Auto) (0.001-0.429) % Nucleat RBC Rel Count (0.00-0.2) % Eos # (Auto) (0.04-0.36) x10^3/uL Immature Gran # (Auto) (0.001-0.031) x10^3u/L Absolute Lymphs (auto) (1.18-3.74) x10^3/uL Absolute Monos (auto) (0.24-0.86) x10^3/uL Absolute Nucleated RBC (0.00-0.012) x10^3u/L Lymphocytes % (19.3-51.7) % Monocytes % (4.7-12.5) % Eosinophils % (0.7-5.8) % Basophils % (0.1-1.2) % Absolute Granulocytes (1.56-6.13) x10^3/uL Basophils # (0.01-0.08) x10^3/uL ESR (0-20) mm/hr PT 21.2 H (9.4-12.5) SECONDS INR 2.04 (0.8-3.0) Sodium (135-145) mmol/L Potassium (3.5-5.1) mmol/L Chloride (98-107) mmol/L Carbon Dioxide (22-30) mmol/L Anion Gap (5-15) MEQ/L BUN (7-17) mg/dL Creatinine (0.52-1.04) mg/dL Estimated GFR ML/MIN Glucose (74-106) mg/dL Lactic Acid (0.4-2.0) Calcium (8.4-10.2) mg/dL Magnesium (1.6-2.3) mg/dL Total Bilirubin (0.2-1.3) mg/dL AST (14-36) U/L ALT (0-35) U/L Alkaline Phosphatase (38-126) U/L Creatine Kinase (30-135) U/L Troponin I < 0.012 (0.000-0.033) ng/mL NT-Pro-B Natriuret Pep (<300) pg/mL Serum Total Protein (6.3-8.2) g/dL Albumin (3.5-5.0) g/dL Amylase (30-110) U/L Lipase (23-300) U/L TSH 3rd Generation (0.470-4.680) mIU/L Urine Color Yellow (Yellow) Urine Appearance Clear (Clear) Urine pH 6.5 (4.6-8.0) Ur Specific [place] 1.010 (1.005-1.030) Urine Protein Negative (Negative) Urine Glucose (UA) Negative (Negative) mg/dL Urine Ketones Negative (Negative) Urine Blood Negative (Negative) Urine Nitrite Negative (Negative) Urine Bilirubin Negative (Negative) Urine Urobilinogen 1.0 A (0.2) mg/dL Ur Leukocyte Esterase Trace A (Negative) U Hyaline Cast (Auto) NONE SEEN (0-2) /LPF Urine Microscopic RBC 0-2 (0-5) /HPF Urine Microscopic WBC 0-2 (0-5) /HPF Ur Epithelial Cells None Seen (None Seen) /HPF Urine Bacteria None Seen (None Seen) /HPF Urine Culture Reflexed NO (NO) Ethyl Alcohol (0-10) mg/dL 03/09/25 03/09/25 03/09/25 Range/Units 12:10 17:20 17:20 WBC (3.98-10.04) x10^3/uL RBC (3.93-5.22) x10^6/uL Hgb (11.2-15.7) g/dL Hct (34.1-44.9) % MCV (79.4-94.8) fL MCH (25.6-32.2) pg MCHC (32.2-35.5) g/dL RDW (11.7-14.4) % Plt Count (182-369) x10^3/uL MPV (9.4-12.3) fL Gran % (34.0-71.1) % Immature Gran % (Auto) (0.001-0.429) % Nucleat RBC Rel Count (0.00-0.2) % Eos # (Auto) (0.04-0.36) x10^3/uL Immature Gran # (Auto) (0.001-0.031) x10^3u/L Absolute Lymphs (auto) (1.18-3.74) x10^3/uL Absolute Monos (auto) (0.24-0.86) x10^3/uL Absolute Nucleated RBC (0.00-0.012) x10^3u/L Lymphocytes % (19.3-51.7) % Monocytes % (4.7-12.5) % Eosinophils % (0.7-5.8) % Basophils % (0.1-1.2) % Absolute Granulocytes (1.56-6.13) x10^3/uL Basophils # (0.01-0.08) x10^3/uL ESR (0-20) mm/hr PT (9.4-12.5) SECONDS INR (0.8-3.0) Sodium (135-145) mmol/L Potassium 3.5 (3.5-5.1) mmol/L Chloride (98-107) mmol/L Carbon Dioxide (22-30) mmol/L Anion Gap (5-15) MEQ/L BUN (7-17) mg/dL Creatinine (0.52-1.04) mg/dL Estimated GFR ML/MIN Glucose (74-106) mg/dL Lactic Acid (0.4-2.0) Calcium (8.4-10.2) mg/dL Magnesium (1.6-2.3) mg/dL Total Bilirubin (0.2-1.3) mg/dL AST (14-36) U/L ALT (0-35) U/L Alkaline Phosphatase (38-126) U/L Creatine Kinase (30-135) U/L Troponin I < 0.012 (0.000-0.033) ng/mL NT-Pro-B Natriuret Pep (<300) pg/mL Serum Total Protein (6.3-8.2) g/dL Albumin (3.5-5.0) g/dL Amylase (30-110) U/L Lipase (23-300) U/L TSH 3rd Generation 2.148 (0.470-4.680) mIU/L Urine Color (Yellow) Urine Appearance (Clear) Urine pH (4.6-8.0) Ur Specific [place] (1.005-1.030) Urine Protein (Negative) Urine Glucose (UA) (Negative) mg/dL Urine Ketones (Negative) Urine Blood (Negative) Urine Nitrite (Negative) Urine Bilirubin (Negative) Urine Urobilinogen (0.2) mg/dL Ur Leukocyte Esterase (Negative) U Hyaline Cast (Auto) (0-2) /LPF Urine Microscopic RBC (0-5) /HPF Urine Microscopic WBC (0-5) /HPF Ur Epithelial Cells (None Seen) /HPF Urine Bacteria (None Seen) /HPF Urine Culture Reflexed (NO) Ethyl Alcohol (0-10) mg/dL 03/10/25 Range/Units 01:05 WBC (3.98-10.04) x10^3/uL RBC (3.93-5.22) x10^6/uL Hgb (11.2-15.7) g/dL Hct (34.1-44.9) % MCV (79.4-94.8) fL MCH (25.6-32.2) pg MCHC (32.2-35.5) g/dL RDW (11.7-14.4) % Plt Count (182-369) x10^3/uL MPV (9.4-12.3) fL Gran % (34.0-71.1) % Immature Gran % (Auto) (0.001-0.429) % Nucleat RBC Rel Count (0.00-0.2) % Eos # (Auto) (0.04-0.36) x10^3/uL Immature Gran # (Auto) (0.001-0.031) x10^3u/L Absolute Lymphs (auto) (1.18-3.74) x10^3/uL Absolute Monos (auto) (0.24-0.86) x10^3/uL Absolute Nucleated RBC (0.00-0.012) x10^3u/L Lymphocytes % (19.3-51.7) % Monocytes % (4.7-12.5) % Eosinophils % (0.7-5.8) % Basophils % (0.1-1.2) % Absolute Granulocytes (1.56-6.13) x10^3/uL Basophils # (0.01-0.08) x10^3/uL ESR (0-20) mm/hr PT (9.4-12.5) SECONDS INR (0.8-3.0) Sodium (135-145) mmol/L Potassium (3.5-5.1) mmol/L Chloride (98-107) mmol/L Carbon Dioxide (22-30) mmol/L Anion Gap (5-15) MEQ/L BUN (7-17) mg/dL Creatinine (0.52-1.04) mg/dL Estimated GFR ML/MIN Glucose (74-106) mg/dL Lactic Acid (0.4-2.0) Calcium (8.4-10.2) mg/dL Magnesium (1.6-2.3) mg/dL Total Bilirubin (0.2-1.3) mg/dL AST (14-36) U/L ALT (0-35) U/L Alkaline Phosphatase (38-126) U/L Creatine Kinase (30-135) U/L Troponin I 0.017 (0.000-0.033) ng/mL NT-Pro-B Natriuret Pep (<300) pg/mL Serum Total Protein (6.3-8.2) g/dL Albumin (3.5-5.0) g/dL Amylase (30-110) U/L Lipase (23-300) U/L TSH 3rd Generation (0.470-4.680) mIU/L Urine Color (Yellow) Urine Appearance (Clear) Urine pH (4.6-8.0) Ur Specific [place] (1.005-1.030) Urine Protein (Negative) Urine Glucose (UA) (Negative) mg/dL Urine Ketones (Negative) Urine Blood (Negative) Urine Nitrite (Negative) Urine Bilirubin (Negative) Urine Urobilinogen (0.2) mg/dL Ur Leukocyte Esterase (Negative) U Hyaline Cast (Auto) (0-2) /LPF Urine Microscopic RBC (0-5) /HPF Urine Microscopic WBC (0-5) /HPF Ur Epithelial Cells (None Seen) /HPF Urine Bacteria (None Seen) /HPF Urine Culture Reflexed (NO) Ethyl Alcohol (0-10) mg/dL Radiology Exams: Radiology Procedures Category Date Time Status CHEST 1 VIEW (PORTABLE) Stat Exams 03/09/25 08:16 Completed ECHO W/2D AND DOPPLER [US] Routine Exams 03/09/25 11:34 Taken Medications: Medications Generic Name Dose Route Start Last Admin Trade Name Freq PRN Reason Stop Dose Admin Acetaminophen 650 mg 03/09/25 11:33 Acetaminophen 325 Mg Tablet PO 04/08/25 11:32 Q4H PRN PRN PAIN, FEVER, HEADACHE Hydrocodone Bitart/Acetaminophen 1 tab 03/09/25 12:20 Hydrocodone/Apap 5/325 1 Tab Tablet PO 03/14/25 12:19 BIDPRN PRN PAIN Allopurinol 300 mg 03/10/25 10:00 Allopurinol 300 Mg Tablet PO 04/09/25 09:59 DAILY SADE Doxycycline Hyclate 100 mg 03/09/25 17:00 03/09/25 17:43 Doxycycline Hyclate 100 Mg Tablet PO 04/08/25 16:59 100 mg BIDWMEALS SADE Administration Furosemide 20 mg 03/10/25 02:05 03/10/25 02:15 Furosemide 20 Mg/Vial IV 03/10/25 02:06 20 mg ONCE ONE Administration Gabapentin 600 mg 03/09/25 22:00 03/09/25 21:00 Gabapentin 300 Mg Capsule PO 04/08/25 21:59 600 mg BID SADE Administration Diltiazem HCl 100 mls @ 5 mls/hr 03/09/25 09:57 03/10/25 03:07 Cardizem Drip 100 Mg/100 Ml D5w IV 04/08/25 09:56 20 mg/hr .Q20H PRN 20 mls/hr HEART RATE/ A-FIB Administration Protocol 5 MG/HR Ceftriaxone Sodium 1 gm in 100 mls @ 200 mls/hr 03/10/25 10:00 Rocephin 1 Gm / 100 Ml Nacl IV 04/09/25 09:59 Q24H10 SADE Potassium Chloride/Sodium Chloride 1,000 mls @ 50 mls/hr 03/09/25 12:00 03/09/25 22:15 Sodium Chloride 0.9% W/ 20 Meq Kcl/Liter IV 04/08/25 11:59 0 mls/hr .Q20H SADE Infusion Amiodarone HCl/Dextrose 360 mg in 200 mls @ 33 mls/hr 03/09/25 15:00 03/10/25 03:30 Nexterone 360 Mg/200 Ml Bag IV 04/08/25 14:59 16.7 ml/hr .Q6H4M SADE 16.7 mls/hr Titration Protocol Metoprolol Tartrate 25 mg 03/09/25 23:15 03/10/25 04:47 Metoprolol Tartrate 25 Mg Tab PO 04/08/25 23:14 25 mg Q6H SADE Administration Nitroglycerin 0.4 mg 03/09/25 12:20 Nitroglycerin 0.4 Mg Tablet Bottle SL 04/08/25 12:19 Q5MIN PRN MR X 3 PRN CHEST PAIN Ondansetron HCl 4 mg 03/09/25 11:33 Ondansetron Hcl 4 Mg/2 Ml Vial IV 04/08/25 11:32 Q6H PRN PRN NAUSEA/VOMITING Pantoprazole Sodium 40 mg 03/09/25 13:00 03/09/25 12:23 Protonix (Pantoprazole) 40 Mg Tablet PO 04/08/25 12:59 40 mg DAILY SADE Administration Simvastatin 10 mg 03/09/25 22:00 03/09/25 21:00 Simvastatin 10 Mg Tablet PO 04/08/25 21:59 10 mg HS SADE Administration Venlafaxine HCl 150 mg 03/10/25 10:00 Venlafaxine Hcl 75 Mg Extended Release Capsule PO 04/09/25 09:59 QAM SADE Warfarin Sodium 2 mg 03/10/25 18:00 Warfarin Sodium 2 Mg Tablet PO 04/09/25 17:59 [facility] Warfarin Sodium 3 mg 03/09/25 18:00 03/09/25 17:43 Warfarin Sodium 3 Mg Tablet PO 04/08/25 17:59 3 mg MOWEFR SADE Administration Zolpidem Tartrate 10 mg 03/09/25 22:00 03/09/25 21:02 Zolpidem Tartrate 10 Mg Tablet PO 04/08/25 21:59 10 mg HS SADE Administration Discontinued Medications Generic Name Dose Route Start Last Admin Trade Name Freq PRN Reason Stop Dose Admin Albuterol Sulfate 2 puff 03/09/25 15:52 Albuterol Common Canister Inhaler IH 04/08/25 15:51 Q4H PRN PRN SHORTNESS OF BREATH/WHEEZING Aspirin 324 mg 03/09/25 08:15 03/09/25 08:25 Aspirin 81 Mg Tab.Chew PO 03/09/25 08:16 324 mg STAT ONE Administration Aspirin Confirm 03/09/25 08:22 Aspirin 81 Mg Tab.Chew Administered 03/09/25 08:23 Dose 324 mg .ROUTE .STK-MED ONE Azithromycin 500 mg 03/09/25 09:36 03/09/25 10:17 Azithromycin 250 Mg Tablet PO 03/09/25 09:37 500 mg STAT ONE Administration Azithromycin Confirm 03/09/25 10:16 Azithromycin 250 Mg Tablet Administered 03/09/25 10:17 Dose 500 mg .ROUTE .STK-MED ONE Diltiazem HCl 10 mg 03/09/25 08:15 03/09/25 08:25 Diltiazem Hcl Iv 5 Mg/Ml Vial IV 03/09/25 08:16 10 mg STAT ONE Administration Diltiazem HCl Confirm 03/09/25 08:23 Diltiazem Hcl Iv 5 Mg/Ml Vial Administered 03/09/25 08:24 Dose 50 mg IV .STK-MED ONE Sodium Chloride 1,000 mls @ 999 mls/hr 03/09/25 08:15 03/09/25 09:34 Sodium Chloride 0.9% 1000 Ml IV 03/09/25 09:15 Infused .Q1H1M STA Infusion Sodium Chloride Confirm 03/09/25 08:22 Sodium Chloride 0.9% 1000 Ml Administered 03/09/25 08:23 Dose 1,000 mls @ ud .ROUTE .STK-MED ONE Ceftriaxone Sodium 2 gm in 100 mls @ 200 mls/hr 03/09/25 09:36 03/09/25 10:32 Rocephin 2 Gm/100 Ml Nacl IV 03/09/25 10:05 Infused STAT ONE Infusion Ceftriaxone Sodium Confirm 03/09/25 09:40 Rocephin 2 Gm/100 Ml Nacl Administered 03/09/25 09:41 Dose 2 gm in 100 mls @ ud IV .STK-MED ONE Azithromycin 500 mg/ Sodium 250 mls @ 250 mls/hr 03/10/25 10:00 Chloride IV 04/09/25 09:59 [id number] SADE Amiodarone HCl 150 mg/ 103 mls @ 618 mls/hr 03/09/25 15:00 03/09/25 14:55 Dextrose IV 03/09/25 15:09 618 mls/hr STAT ONE Administration Protocol Metoprolol Tartrate 25 mg 03/09/25 14:30 03/09/25 15:00 Metoprolol Tartrate 25 Mg Tab PO 03/09/25 14:31 25 mg ONCE ONE Administration Metoprolol Tartrate 25 mg 03/10/25 13:00 Metoprolol Tartrate 25 Mg Tab PO 04/09/25 12:59 1300 [facility] Metoprolol Tartrate 25 mg 03/10/25 05:00 Metoprolol Tartrate 25 Mg Tab PO 04/09/25 04:59 QAM [facility] Metoprolol Tartrate 25 mg 03/10/25 05:00 Metoprolol Tartrate 25 Mg Tab PO 04/09/25 04:59 0500 [facility] Non-Formulary Medication 1 each 03/09/25 11:57 03/09/25 13:43 Pharmacy Dosing Request 03/09/25 11:58 Not Given STAT ONE Potassium Chloride 20 meq 03/09/25 12:00 03/09/25 17:43 Potassium Chloride Tab 10 Meq Tab PO 03/09/25 18:01 20 meq Q2H SADE Administration Multi-Disciplinary Progress Notes: Multi-Disciplinary Progress Notes 03/09/25 14:31 Pharmacy Note by Handy Bautista Please be aware of possible drug interaction with Cordarone and Zithromax. May prolong the QT interval. Initialized on 03/09/25 14:31 - END OF NOTE 03/09/25 12:36 Pharmacy Note by Handy Bautista Patient continued on current home dose of Coumadin. 3mg on Sun-Sun-Sun. 2mg on Ydw-Nsg-Ebtg-Sat. Will monitor INR and adjust dose if needed. Initialized on 03/09/25 12:36 - END OF NOTE Assessment/Plan (1) Atrial fibrillation with RVR Current Visit: Yes Status: Acute Assessment & Plan: -Continue diltiazem infusion for rate control; transition to oral as tolerated. -Maintain telemetry monitoring and strict I&O. -Continue therapeutic anticoagulation (patient reports adherence)-managed coumadin OP with [facility] pharmacy coumadin clinic -Trend electrolytes; replete potassium >4.0 and magnesium >2.0 to reduce arrhythmia risk - replenish potassium - MG WNL at 2.0 -Obtain echocardiogram to evaluate cardiac function and structure given elevated BNP and no recent echo. -Cardiology consulted 03/10: -Cardiology consulted and discussed case with Dr. Bryant- agree with plan amiodarone drip started and cardizem dcd- metoprolol tartrate 25mg BID CHF with reduced EF - -CT chest demonstrates cardiomegaly, pulmonary edema, and bilateral pleural effusions, most consistent with acute decompensated HFrEF. -Echocardiogram reveals severely reduced systolic function (EF 2530%). -Diuresis started -80mg lasix given x 1 dose- cardiology to decide on further plan for diuresis Code(s): I48.91 - UNSPECIFIED ATRIAL FIBRILLATION Chest Pain -PT reported to cardiology -reviewed note and agree with plan -Trops x 3 negative -Echo reveals severely reduced systolic function (EF 2530%). (2) Community acquired pneumonia Current Visit: Yes Status: Acute Assessment & Plan: -Continue ceftriaxone + azithromycin -Monitor fever curve, WBC, oxygenation, symptoms. -Encourage pulmonary hygiene, early mobilization. -Repeat CXR only if clinical status worsens -Supplemental oxygen to maintain spo2 > 92% currently on RA Code(s): J18.9 - PNEUMONIA, UNSPECIFIED ORGANISM Metabolic acidosis -Most likely secondary to nausea/vomiting and diarrhea (3) JARED (acute kidney injury) Current Visit: Yes Status: Acute Assessment & Plan: -Creat at 1.37- baseline around 0.9 - Hold nephrotoxins. -Monitor renal/lytes daily -Received 1L fluid bolus in ED -Gentle IV fluids as tolerated, monitor for volume overload. 03/10: -Creat elevated at 1.41 -IVF contraindication with CHF Code(s): N17.9 - ACUTE KIDNEY FAILURE, UNSPECIFIED (4) Hypokalemia Current Visit: Yes Status: Acute Assessment & Plan: -Potassium level at 3.3- replenish per protocol -Optimize with K+ > 4 and MG >2 -Tele 03/10: -Potassium level at 4.8 Code(s): E87.6 - HYPOKALEMIA (5) Transaminitis Current Visit: Yes Status: Acute Assessment & Plan: -Mild elevation; monitor. -Consider hepatitis panel, RUQ US if persistent or worsening Code(s): R74.01 - ELEVATION OF LEVELS OF LIVER TRANSAMINASE LEVELS (6) HTN (hypertension) Current Visit: Yes Status: Acute Assessment & Plan: -monitor inpatient closely while on cardizem drip Code(s): I10 - ESSENTIAL (PRIMARY) HYPERTENSION (7) Osteoarthritis Current Visit: Yes Status: Acute Assessment & Plan: -continue home regimen Code(s): M19.90 - UNSPECIFIED OSTEOARTHRITIS, UNSPECIFIED SITE (8) History of DVT (deep vein thrombosis) Current Visit: Yes Status: Acute Assessment & Plan: -On coumadin -History of 2 DVT right leg -Pharmacy doses coumadin as OP will have pharm manage while IP 03/10: -Coumadin held today due to supratherapeutic INR at 3.43 -Dose will need adjusted with amiodarone on board Code(s): Z86.718 - PERSONAL HISTORY OF OTHER VENOUS THROMBOSIS AND EMBOLISM (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 Current Visit: Yes Status: Acute Assessment & Plan: -see DVT Code(s): Z79.01 - SENIOR CARE (CURRENT) USE OF ANTICOAGULANTS (10) Anxiety and depression Current Visit: Yes Status: Acute Assessment & Plan: -continue home meds VTE: Coumadin PPI: protonix Dispo: 2-3 days Code status: Full Code Code(s): I48.91 - UNSPECIFIED ATRIAL FIBRILLATION (2) Community acquired pneumonia Current Visit: Yes Status: Acute Code(s): J18.9 - PNEUMONIA, UNSPECIFIED ORGANISM (3) JARED (acute kidney injury) Current Visit: Yes Status: Acute Code(s): N17.9 - ACUTE KIDNEY FAILURE, UNSPECIFIED (4) Hypokalemia Current Visit: Yes Status: Acute Code(s): E87.6 - HYPOKALEMIA (5) Transaminitis Current Visit: Yes Status: Acute Code(s): R74.01 - ELEVATION OF LEVELS OF LIVER TRANSAMINASE LEVELS (6) HTN (hypertension) Current Visit: Yes Status: Acute Code(s): I10 - ESSENTIAL (PRIMARY) HYPERTENSION (7) Osteoarthritis Current Visit: Yes Status: Acute Code(s): M19.90 - UNSPECIFIED OSTEOARTHRITIS, UNSPECIFIED SITE (8) History of DVT (deep vein thrombosis) Current Visit: Yes Status: Acute Code(s): Z86.718 - PERSONAL HISTORY OF OTHER VENOUS THROMBOSIS AND EMBOLISM (9) residential current use of anticoagulant Current Visit: Yes Status: Acute Code(s): Z79.01 - SENIOR CARE (CURRENT) USE OF ANTICOAGULANTS (10) Anxiety and depression Current Visit: Yes Status: Acute Code(s): F41.9 - ANXIETY DISORDER, UNSPECIFIED; F32.A - DEPRESSION, UNSPECIFIED (11) Metabolic acidosis Current Visit: Yes Status: Acute Code(s): E87.20 - ACIDOSIS, UNSPECIFIED
[2025-03-10 08:30] LABS: Calcium 8.8 mg/dL (8.4-10.2); Creatinine 1 1.41 mg/dL (0.52-1.04); EST GLOMERULAR FILTRATION RATE 40.9 ML/MIN; Glucose 217.0 mg/dL (74-106); INR 3.43 (0.8-3.0); PROTIME 34.5 SECONDS (9.4-12.5); Potassium 4.8 mmol/L (3.5-5.1); SGOT/AST 90.0 U/L (14-36); SGPT/ALT 137.0 U/L (0-35); Total Protein 6.5 g/dL (6.3-8.2)
[2025-03-10 08:38] LABS: Carbon Dioxide 16.0 mmol/L (22-30)
[2025-03-10 08:40] LABS: Hematocrit 45.9 % (34.1-44.9); Hemoglobin 13.9 g/dL (11.2-15.7); Mean Corpuscular Hemoglobin 26.9 pg (25.6-32.2); Mean Corpuscular Hgb Concent. 30.3 g/dL (32.2-35.5); Platelet Count 324 x10^3/uL (182-369); Red Blood Count 5.16 x10^6/uL (3.93-5.22); White Blood Count 15.8 x10^3/uL (3.98-10.04)
[2025-03-10] MEDS: SODIUM BICARBONATE PO SCH (09:46)
[2025-03-10] MEDS: Zofran 4 MG/2 ML VIAL IV PRN (09:47)
--- NOTE | 2025-03-10 09:51 | XRAY ---
Indication: Crackles. Increased short of breath. Multiple contiguous axial images obtained through the chest without contrast as ordered. Comparison: None Heart is enlarged. Aorta is normal in course and caliber with minimal arch calcifications. Small left hilar and tiny subcarinal calcified nodes. No pathologic mediastinal lymphadenopathy. Lungs demonstrates mild diffuse pulmonary edema and moderate right/mild left pleural effusions with moderate bibasilar compressive atelectasis. Incidental small left lower lobe calcified granuloma. Bony thorax intact with osteopenia, minimal degenerative changes throughout spine, and minimal dextroscoliosis. Limited upper abdomen demonstrates splenic calcified granulomas and previous cholecystectomy. Impression: 1. Cardiomegaly with pulmonary edema and bilateral effusions as detailed favoring cardiac decompensation/CHF versus fluid overload. 2. Chronic findings including arteriosclerotic disease, chronic bony findings, and old granulomatous disease.
[2025-03-10] MEDS ORDERED: ZITHROMAX IV*** 500 MG in Sodium Chloride 0.9% 250 ML 250 ML IV SCH (10:00)
[2025-03-10] MEDS: Furosemide 100mg/10 ml Vial IV ONE (10:36)
[2025-03-10] MEDS: ROCEPHIN 1 GM / 100 ML NaCl 1 GM/100 ML IVPB IV SCH (10:36)
[2025-03-10] MEDS: ZYLOPRIM 300 MG PO SCH (12:42)
[2025-03-10] MEDS: Effexor XR 75 MG PO SCH (12:42)
[2025-03-10 13:37] LABS: 027 TOX PROD PRESUMPTIVE NEGATIVE (NEGATIVE); TOXIGENIC C. DIFF ORG NEGATIVE (NEGATIVE)
[2025-03-10] MEDS: Lopressor 25MG Tab PO SCH (14:40)
--- NOTE | 2025-03-10 14:51 | PCM.NOTE ---
Date and Time: 03/10/25 1440 Subjective Assessment: Dyspnea with walking to bathroom. Denies palpitations. Per nursing, she had orthopnea last night. She was given furosemide 20 mg IVP. Exam General:: no acute distress, alert HEENT: EOMI, JVD (to jaw) Cardiovascular: s1 s2, no murmurs,rubs,gallops, tachycardia, irregular Respiratory:: other (Bibasilar crackles) O2 Delivery: Nasal Cannula (3.5 liters) Abdominal: soft, active bowel sounds x 4 Extremity Exam: edema (Trace edema of both lower extreimties up to thighs.) Neurologic: other (Grossly nonfocal) Objective Data Vital Signs: Vital Signs - 24 hr Temp Pulse Resp BP Pulse Ox 03/10/25 09:48 73 25 H 104/73 03/10/25 09:00 66 102/73 91 L 03/10/25 08:55 66 23 113/78 03/10/25 08:46 69 24 113/78 95 03/10/25 08:45 107 H 19 92 L 03/10/25 08:40 113 H 27 H 95 03/10/25 08:32 93 H 25 H 91 L 03/10/25 08:25 105 H 23 99/78 03/10/25 08:16 105 H 30 H 99/78 92 L 03/10/25 08:01 100 H 23 106/38 92 L 03/10/25 07:46 98 H 22 110/75 93 L 03/10/25 07:44 106 H 23 94/67 03/10/25 07:31 86 22 94/67 95 03/10/25 07:18 103 H 20 96 03/10/25 07:16 84 22 76/66 98 03/10/25 07:01 92 H 23 102/70 96 03/10/25 06:57 90 24 95/67 96 03/10/25 06:56 97 H 24 95 03/10/25 06:52 97 03/10/25 06:50 89 19 95 03/10/25 06:47 74 23 97 03/10/25 06:16 91 H 23 112/84 96 03/10/25 06:00 101 H 23 120/74 95 03/10/25 05:45 96 H 22 123/88 93 L 03/10/25 05:30 90 23 143/89 93 L 03/10/25 05:15 110 H 24 125/82 94 L 03/10/25 05:00 119 H 24 146/92 93 L 03/10/25 04:45 126 H 24 119/101 94 L 03/10/25 04:30 117 H 23 126/105 92 L 03/10/25 04:15 128 H 23 133/101 92 L 03/10/25 04:04 114 H 132/94 03/10/25 04:00 116 H 24 132/94 92 L 03/10/25 03:45 111 H 25 H 137/95 93 L 03/10/25 03:32 126 H 03/10/25 03:30 98.3 F 119 H 23 131/89 93 L 03/10/25 03:16 123 H 25 H 137/114 93 L 03/10/25 03:00 126 H 23 119/87 91 L 03/10/25 02:45 112 H 22 126/90 92 L 03/10/25 02:30 125 H 24 148/113 92 L 03/10/25 02:15 121 H 28 H 133/104 93 L 03/10/25 02:00 124 H 25 H 152/107 92 L 03/10/25 01:45 117 H 25 H 133/108 90 L 03/10/25 01:30 122 H 25 H 141/104 90 L 03/10/25 01:15 131 H 24 146/125 90 L 03/10/25 01:04 144 H 26 H 138/88 93 L 03/10/25 00:45 135 H 33 H 147/110 92 L 03/10/25 00:30 139 H 33 H 125/107 94 L 03/10/25 00:15 141 H 27 H 149/114 93 L 03/10/25 00:06 91 L 03/10/25 00:00 98.4 F 149 H 28 H 151/115 90 L 03/09/25 23:45 141 H 26 H 127/108 89 L 03/09/25 23:40 147 H 03/09/25 23:30 147 H 28 H 132/100 90 L 03/09/25 23:23 163 H 23 108/87 95 03/09/25 23:20 149 H 89 L 03/09/25 23:18 149 H 89 L 03/09/25 23:00 144 H 118/90 88 L 03/09/25 22:45 138 H 18 155/88 92 L 03/09/25 22:30 153 H 26 H 128/89 95 03/09/25 22:15 128 H 23 114/96 91 L 03/09/25 22:01 129 H 105/87 03/09/25 22:00 131 H 105/87 03/09/25 21:45 134 H 25 H 130/97 03/09/25 21:30 123 H 23 128/90 94 L 03/09/25 21:23 144 H 16 120/93 92 L 03/09/25 21:00 131 H 18 116/91 93 L 03/09/25 20:46 127 H 22 102/88 93 L 03/09/25 20:31 131 H 17 148/118 96 03/09/25 20:18 130 H 15 113/86 95 03/09/25 20:00 98 F 129 H 22 122/93 95 03/09/25 19:45 118 H 17 127/102 94 L 03/09/25 19:30 126 H 18 127/99 93 L 03/09/25 19:16 121 H 15 99/77 93 L 03/09/25 19:04 135 H 18 95 03/09/25 19:00 125 H 23 114/95 93 L 03/09/25 18:45 114 H 17 124/102 91 L 03/09/25 18:31 121 H 20 132/105 94 L 03/09/25 18:23 118 H 19 113/91 93 L 03/09/25 18:16 96 03/09/25 18:00 130 H 22 132/90 94 L 03/09/25 17:46 134 H 20 122/88 93 L 03/09/25 17:30 120 H 19 99/82 96 03/09/25 17:15 131 H 17 121/95 96 03/09/25 17:00 127 H 24 122/95 97 03/09/25 16:45 108 H 13 124/97 95 03/09/25 16:31 114 H 14 127/94 94 L 03/09/25 16:16 115 H 16 111/80 95 03/09/25 16:00 97.7 F 129 H 18 123/88 94 L 03/09/25 15:57 119 H 23 118/95 03/09/25 15:51 93 L 09/15/25 15:49 145 H 24 93 L 03/09/25 15:45 102 H 118/95 94 L 03/09/25 15:30 123 H 16 117/96 93 L 03/09/25 15:18 126 H 20 109/90 93 L 03/09/25 15:00 141 H 124/84 97 03/09/25 14:45 122 H 20 111/80 94 L Pain Assessment - Last Documented Pain Intensity 0 Patient's ventricular response ranged 120-160 bpm overnight. Diltiazem infusion that was decreased in ate afternoon after consult was increased up 20 mg/hr. Metoprolol was increased to 25 mg q 6 hours. This am at 0845, patient converted to sinus rhythm. Diltiazem was discontinued after it was learned that she had a severe cardiomyopathy with EF 25-30%. Atrial atrial flutter recurred at 1302 with VR 124 - 150 bpm. Metoprolol was also decrease to 25 mg by mouth q 8 hours. Intake and Output: Intake & Output 03/08/25 03/09/25 03/10/25 03/11/25 11:59 11:59 11:59 11:59 Intake Total 1792 600 Output Total 125 Balance 1667 600 Weight 90.718 kg 92.2 kg Since admission weight has increased from 90.7 kg to 92.6 KG (up 1.9 kg or 4.2 lb). LAB: I have reviewed the Labs in [place]. Lab Results: Lab Results-Last 24 Hours 03/09/25 03/09/25 03/09/25 Range/Units 07:31 17:20 17:20 WBC (3.98-10.04) x10^3/uL RBC (3.93-5.22) x10^6/uL Hgb (11.2-15.7) g/dL Hct (34.1-44.9) % MCV (79.4-94.8) fL MCH (25.6-32.2) pg MCHC (32.2-35.5) g/dL RDW (11.7-14.4) % Plt Count (182-369) x10^3/uL MPV (9.4-12.3) fL PT (9.4-12.5) SECONDS INR (0.8-3.0) D-Dimer (0.0-0.50) mg/L Sodium (135-145) mmol/L Potassium 3.5 (3.5-5.1) mmol/L Chloride (98-107) mmol/L Carbon Dioxide (22-30) mmol/L Anion Gap (5-15) MEQ/L BUN (7-17) mg/dL Creatinine (0.52-1.04) mg/dL Estimated GFR ML/MIN Glucose (74-106) mg/dL Calcium (8.4-10.2) mg/dL Magnesium (1.6-2.3) mg/dL Total Bilirubin (0.2-1.3) mg/dL AST (14-36) U/L ALT (0-35) U/L Alkaline Phosphatase (38-126) U/L Troponin I < 0.012 (0.000-0.033) ng/mL Serum Total Protein (6.3-8.2) g/dL Albumin (3.5-5.0) g/dL C. difficile Screen NEGATIVE (NEGATIVE) C.difficile 027-NAP1-B1 PRESUMPTIVE NEGATIVE (NEGATIVE) 03/10/25 03/10/25 03/10/25 Range/Units 01:05 08:14 08:14 WBC 15.8 H (3.98-10.04) x10^3/uL RBC 5.16 (3.93-5.22) x10^6/uL Hgb 13.9 (11.2-15.7) g/dL Hct 45.9 H (34.1-44.9) % MCV 89.0 (79.4-94.8) fL MCH 26.9 (25.6-32.2) pg MCHC 30.3 L (32.2-35.5) g/dL RDW 15.0 H (11.7-14.4) % Plt Count 324 (182-369) x10^3/uL MPV 10.6 (9.4-12.3) fL PT (9.4-12.5) SECONDS INR (0.8-3.0) D-Dimer (0.0-0.50) mg/L Sodium 139 (135-145) mmol/L Potassium 4.8 D (3.5-5.1) mmol/L Chloride 106 (98-107) mmol/L Carbon Dioxide 16 L* (22-30) mmol/L Anion Gap 21.8 H (5-15) MEQ/L BUN 22 H (7-17) mg/dL Creatinine 1.41 H (0.52-1.04) mg/dL Estimated GFR 40.9 ML/MIN Glucose 217 H (74-106) mg/dL Calcium 8.8 (8.4-10.2) mg/dL Magnesium 2.1 (1.6-2.3) mg/dL Total Bilirubin 0.70 (0.2-1.3) mg/dL AST 90 H (14-36) U/L ALT 137 H (0-35) U/L Alkaline Phosphatase 117 (38-126) U/L Troponin I 0.017 (0.000-0.033) ng/mL Serum Total Protein 6.5 (6.3-8.2) g/dL Albumin 4.0 (3.5-5.0) g/dL C. difficile Screen (NEGATIVE) C.difficile 027-NAP1-B1 (NEGATIVE) 03/10/25 03/10/25 Range/Units 08:14 08:14 WBC (3.98-10.04) x10^3/uL RBC (3.93-5.22) x10^6/uL Hgb (11.2-15.7) g/dL Hct (34.1-44.9) % MCV (79.4-94.8) fL MCH (25.6-32.2) pg MCHC (32.2-35.5) g/dL RDW (11.7-14.4) % Plt Count (182-369) x10^3/uL MPV (9.4-12.3) fL PT 34.5 H (9.4-12.5) SECONDS INR 3.43 H D (0.8-3.0) D-Dimer 1.05 H* (0.0-0.50) mg/L Sodium (135-145) mmol/L Potassium (3.5-5.1) mmol/L Chloride (98-107) mmol/L Carbon Dioxide (22-30) mmol/L Anion Gap (5-15) MEQ/L BUN (7-17) mg/dL Creatinine (0.52-1.04) mg/dL Estimated GFR ML/MIN Glucose (74-106) mg/dL Calcium (8.4-10.2) mg/dL Magnesium (1.6-2.3) mg/dL Total Bilirubin (0.2-1.3) mg/dL AST (14-36) U/L ALT (0-35) U/L Alkaline Phosphatase (38-126) U/L Troponin I (0.000-0.033) ng/mL Serum Total Protein (6.3-8.2) g/dL Albumin (3.5-5.0) g/dL C. difficile Screen (NEGATIVE) C.difficile 027-NAP1-B1 (NEGATIVE) Radiology Exams: Radiology Procedures Category Date Time Status CHEST 1 VIEW (PORTABLE) Stat Exams 03/09/25 08:16 Completed CHEST WITHOUT CONTRAST [CT] Urgent Exams 03/10/25 08:45 Completed ECHO W/2D AND DOPPLER [US] Routine Exams 03/09/25 11:34 Taken TTE 03/09/2025: 1. Patient is in atrial fibrillation with a rapid ventricular response throughout study. 2. Moderately dilated atria. Normal ventricular chamber sizes. 3. Severely depressed left ventricular systolic function with an estimated EF 25-30%. The basal inferior, basal inferolateral, and basal inferoseptal wall segments contract normally. Other wall segments are severely hypokinetic. 4. Unable to determine grade of diastolic dysfunction due to undelying atrial fibrillation. 5. Normal right ventricular systolic fucntion. 6. Mild aortic sclerosis without stenosis. 7. Doppler: Mild to moderate mitral regurgitation, mild tricuspid regurgitation. 8. Mildly elevated PA systolic pressure (32 mmHg). 9. Mildly elevated right atrial pressure (8 mmHg). 10. No pericardial effusion. Chest CT without contrast 03/10/2025: 1. Cardiomegaly with pulmonary edema and bilateral effusions as detailed favoring cardiac decompensation/CHF versus fluid overload. 2. Chronic findings including arteriosclerotic disease, chronic bony findings, and old granulomatous disease. Tracing 1 Attestation: I have reviewed this EKG and interpreted as documented below. EKG Narrative: ECGs 03/10/2025 at 1028: NSR at 76 bpm. RAD. [place] 108 degrees. Long QT (QT 0.548, Qtc 0.617). 03/09/2025 at 0756: Atypical atrial flutter with VAVB at 148 bpm. RAD. [place] [address] and T wave abnormalities. 10/17/2024: NSR at 65 bpm. Incomplete RBBB. Nonspecific T wave abnormality. Telemetry 03/10/2025 at 1254: 10 beat run of polymorphic VT (Torsades de Pointes) at 240 bpm. 03/10/2025 at 1252: 5 beat run of VT at 200 bpm. 03/09/2025 at 1141: Atrial flutter with VAVB at 163 bpm. Multi-Disciplinary Progress Notes: Multi-Disciplinary Progress Notes 03/10/25 09:41 Radiology Note by GRABIEL MORIN TRANSTHORACIC ECHOCARDIOGRAM 03/09/2025: 1. Patient is in atrial fibrillation with a rapid ventricular response throughout study. 2. Moderately dilated atria. Normal ventricular chamber sizes. 3. Severely depressed left ventricular systolic function with an estimated EF 25-30%. The basal inferior, basal inferolateral, and basal inferoseptal wall segments contract normally. Other wall segments are severely hypokinetic. 4. Unable to determine grade of diastolic dysfunction due to undelying atrial fibrillation. 5. Normal right ventricular systolic function. 6. Mild aortic sclerosis without stenosis. 7. Doppler: Mild to moderate mitral regurgitation, mild tricuspid regurgitation. 8. Mildly elevated PA systolic pressure (32 mmHg). 9. Mildly elevated right atrial pressure (8 mmHg). 10. No pericardial effusion. Grabiel Morin MD [facility] Initialized on 03/10/25 09:41 - END OF NOTE 03/10/25 08:52 Pharmacy Note by Handy Bautista INR 3.43. Will hold Coumadin today and review level tomorrow. Initialized on 03/10/25 08:52 - END OF NOTE Assessment & Plan (1) Atypical atrial flutter Current Visit: Yes Status: Acute Assessment & Plan: Converted to sinus rhythm on amiodarone this am but atrial flutter recurred this afternoon. Her CHF may have contributed. Will continue metoprolol and load with digoxin. Code(s): I48.4 - ATYPICAL ATRIAL FLUTTER (2) Torsades de pointes Current Visit: Yes Status: Acute Assessment & Plan: Secondary to amiodarone + Zofran. Will discontinue both agents for now. Digoxin being added for rate control as above. Magnesium and potassium levels are fine. Will still give magnesium sulfate 2 grams IV. Will repeat magnesium infusion if paatient has a recurrence of Torsades after first infusion. Target magneium at least 2.0. Target potassium 4.5 in the short term until QT corrects. Can re institute oral amiodarone load after QT corrects. Code(s): I47.21 - TORSADES DE POINTES (3) HFrEF (heart failure with reduced ejection fraction) Current Visit: Yes Status: Acute Assessment & Plan: Developed during this hospitalization with the withholding of furosemide the ad ministration of IVFs in this patient with an underlying cardiomyopathy and rapid atrial flutter. Patient give furosemide 80 mg IVP this am. Will start furosemide 10 mg/hr to aggressively diurese patient. Will advance GDMT after JARED improves. A tachycardia induced cardiomyopathy is a diagnosis of exclusion. She will need an evaluation for CAD post discharge. Code(s): I50.20 - UNSPECIFIED SYSTOLIC (CONGESTIVE) HEART FAILURE (4) Cardiorenal syndrome Current Visit: Yes Status: Acute Assessment & Plan: Explains acute injury. Will aggressively diurese with furosemide infusion to help lower renal venous pressures which will correct JARED. Code(s): I13.10 - HYP HRT & CHR KDNY DIS W/O HRT FAIL, W STG 1-4/UNSP CHR KDNY (5) Long QT interval Current Visit: Yes Status: Acute Assessment & Plan: Secondary to amiodarone + Zofran. Will discontinue both agents now as above. Will consider restarting amiodarone after QT corrects. Code(s): R94.31 - ABNORMAL ELECTROCARDIOGRAM [ECG] [EKG] (6) Metabolic acidosis Current Visit: Yes Status: Acute Assessment & Plan: Developed since admission. Repeat lactic acid is unremarkable. Suspect due to uremia in the setting of cardiorenal syndrome. Will treat CHF and cardiorenal syndrome to reverse process. Code(s): E87.20 - ACIDOSIS, UNSPECIFIED (7) Chest pain Current Visit: No Status: Acute Qualifiers: Chest pain type: chest pain due to myocardial ischemia Code(s): R07.9 - CHEST PAIN, UNSPECIFIED (8) Viral syndrome Current Visit: Yes Status: Acute - Encounter Encounter: The entirety of this encounter was performed via Telemedicine using audio and visual. Permission granted by patient. Case discussed with Jaylyn Woods NP. Grabiel Morin MD [facility] [phone]
[2025-03-10 15:03] LABS: A-aADO2 107; ABG HEMOGLOBIN 13.8; ABG POTASSIUM 3.6 (3.5-5.1); ABG SITE RIGHT RADIAL; ALLEN TEST OK? YES; ARTERIAL BLD GAS O2 SATURATION 96.8 % (95-100); ARTERIAL BLOOD GAS BASE EXCESS -1.9 (-2.0-2.0); ARTERIAL BLOOD GAS FIO2 32 %; ARTERIAL BLOOD GAS PCO2 35 mmHg (35-45); ARTERIAL BLOOD GAS PO2 77 mmHg (75-100); ARTERIAL BLOOD GAS TEMPERATURE 37.0 C; HCO3- 22.2 (22-28); HGB O2 SAT 94.8 g/dF (94-100); Methhemoglobin 1.1 % (1.4-1.5); paO2 pAO1 0.42
[2025-03-10 15:10] LABS: Calcium 8.6 mg/dL (8.4-10.2); Carbon Dioxide 20.0 mmol/L (22-30); Creatinine 1 1.22 mg/dL (0.52-1.04); EST GLOMERULAR FILTRATION RATE 48.6 ML/MIN; Glucose 172.0 mg/dL (74-106); Potassium 3.7 mmol/L (3.5-5.1); SGOT/AST 125.0 U/L (14-36); SGPT/ALT 165.0 U/L (0-35); Total Protein 6.4 g/dL (6.3-8.2)
[2025-03-10] MEDS: Furosemide 100mg/10 ml Vial*** 100 MG in Sodium Chloride 0.9% 90 ML IV SCH (15:31)
[2025-03-10] MEDS: MAGNESIUM SULF 2 G/50 ML BAG 2 GM/50 ML PIGGYBACK IV ONE (15:40)
[2025-03-10] MEDS: TYLENOL 325 MG PO PRN (15:40)
[2025-03-10] MEDS ORDERED: Coumadin 2 MG PO SCH (18:00)
[2025-03-10] MEDS ORDERED: Furosemide 100mg/10 ml Vial IV SCH (18:00)
[2025-03-10] MEDS: Lanoxin 0.5 MG/2 ML INJECTION IV ONE (18:06)
[2025-03-10] MEDS: Klor Con PO SCH (18:07)
[2025-03-10] MEDS: Cordarone 200 MG PO SCH (19:55)
[2025-03-10] MEDS: PHARMACY RENAL DOSING MC ONE (19:56)
[2025-03-10] MEDS: Maxipime 2 GM** 2 G in Sodium Chloride 0.9% 100 ML IV SCH (21:11)
[2025-03-11] MEDS: Lanoxin 0.125MG TABLET PO SCH ×2 (00:09→05:43)
[2025-03-11] MEDS: Klor Con PO ONE ×2 (00:10→05:48)
[2025-03-11 05:29] LABS: Hematocrit 42.6 % (34.1-44.9); Hemoglobin 12.9 g/dL (11.2-15.7); Mean Corpuscular Hemoglobin 27.0 pg (25.6-32.2); Mean Corpuscular Hgb Concent. 30.3 g/dL (32.2-35.5); Platelet Count 221 x10^3/uL (182-369); Red Blood Count 4.77 x10^6/uL (3.93-5.22); White Blood Count 12.1 x10^3/uL (3.98-10.04)
--- NOTE | 2025-03-11 05:36 | PCM.NOTE ---
Date and Time: 03/11/25 0527 Subjective Assessment: is a 69 year old female with pmhx of atrial fibrillation on anticoagulation, hypertension, osteoarthritis, anxiety, depression, and prior DVT (right leg on coumadin) who presented to the emergency department on 03/09/25 after being referred from urgent care for atrial fibrillation with rapid ventr icular response. She reports feeling unwell for the past 45 days with nonspecific malaise, cold sweats, diarrhea, dyspnea, and nausea prompting her to seek care at [facility] earlier today. She reports > 5 diarrheal stools per day. Viral swabs obtained there were negative. However, she continued to feel poorly and an EKG performed in clinic demonstrated atrial fibrillation with rapid ventricular response, prompting transfer to the ED. She denies chest pain, dyspnea, fever, palpitations, syncope, recent falls, or missed doses of her blood thinner. She also denies calf pain, swelling, or symptoms suggestive of DVT or pulmonary embolism. On arrival, her heart rate was in the 170s, otherwise vitals were stable. EKG showed atrial fibrillation with rapid ventricular response, ventricular rate 148 bpm, QRS 93 ms, QTc 491 ms. Lab findings significant for WBC 11.1, potassium 3.3, creatinine 1.37 (baseline 0.9), AST 52, ALT 110, and BNP 5220. CXR revealed hyperinflated lungs with new hazy right infrahilar interstitial/alveolar opacities concerning for pneumonia or pneumonitis, borderline cardiomegaly, no consolidation or effusion, with background osteopenia and minimal scoliosis. No recent echocardiogram is available for comparison. She was admitted for management of atrial fibrillation with RVR and pneumonia. 03/10/25: Patient evaluated at bedside. Reports progressive dyspnea this morning with associated nausea and vomiting overnight, likely reflecting worsening volume status. CT chest notable for cardiomegaly, pulmonary edema, and bilateral pleural effusions, favoring acute decompensated heart failure over simple fluid overload. Echocardiogram demonstrates severely reduced systolic function with LVEF 2530%. Cardiology is involved; IV diuresis initiated with ongoing monito ring of response. Rate control strategy adjusted Cardizem drip discontinued given reduced EF, and metoprolol tartrate started at 25 mg PO BID. Amiodarone infusion continued per protocol, with transition to oral therapy planned this evening. Despite these interventions, patient remains in Afib with HR persistently in the 130s,despite current regimen. Will discuss with cardiology today regarding strategy for improved rate control. 03/11/25: Patient was evaluated at the bedside and reports improvement in dyspnea, currently maintained on 2 L nasal cannula. On auscultation, crackles are present in the bilateral lower lung phipps. Telemetry monitoring demonstrates atrial flutter with heart rates in the 130s. Laboratory values show a down-trending white blood cell count to 12.1, and acute kidney injury has resolved. The plan is to continue diuresis with the ongoing Lasix drip, optimize electrolytes, and monitor volume status closely. Metoprolol 25 mg every 6 hours is being administered per cardiology recommendations, in addition to digoxin 0.125 mg daily for rate control. Anticoagulation with Coumadin has been resumed at 2 mg daily, with INR monitoring. The patient does report back and shoulder pain, which will be further evaluated and managed as appropriate. - Review of Systems Constitutional: Weakness Eyes: No Symptoms Ears, Nose, & Throat: No Symptoms Respiratory: Short Of Breath Cardiac: Edema Abdominal/Gastrointestinal: No Symptoms Genitourinary Symptoms: No Symptoms Musculoskeletal: Back Pain, Joint Pain (shoulder) Skin: No Symptoms Neurological: No Symptoms Psychological: No Symptoms Endocrine: No Symptoms Hematologic/Lymphatic: No Symptoms Immunological/Allergic: No Symptoms Objective Exam General Appearance: no apparent distress Neurologic Exam: alert, oriented x 3, cooperative Skin Exam: normal color Eye Exam: PERRL Ears, Nose, Throat Exam: normal ENT inspection Neck Exam: JVD Respiratory Exam: diminished breath sounds, crackles/rales Cardiovascular Exam: regular rate/rhythm, normal heart sounds Gastrointestinal/Abdomen Exam: soft, normal bowel sounds Extremity Exam: swelling (trace BLE) Back Exam: normal inspection Pelvic Exam: deferred Rectal Exam: deferred Objective Data Vital Signs: Vital Signs - 24 hr Temp Pulse Resp BP Pulse Ox 03/11/25 05:00 121 H 18 100/77 89 L 03/11/25 04:45 135 H 19 105/75 95 03/11/25 04:31 112 H 19 101/63 95 03/11/25 04:15 122 H 17 123/77 94 L 03/11/25 04:00 128 H 18 98/70 96 03/11/25 03:59 125 H 03/11/25 03:45 122 H 18 112/72 95 03/11/25 03:30 122 H 16 103/70 94 L 03/11/25 03:15 121 H 17 111/76 95 03/11/25 03:00 122 H 24 95/53 95 03/11/25 02:46 126 H 17 110/71 95 03/11/25 02:30 126 H 18 114/73 95 03/11/25 02:15 123 H 24 99/77 95 03/11/25 02:00 116 H 14 85/67 94 L 03/11/25 01:46 114 H 15 103/61 95 03/11/25 01:30 116 H 16 111/68 95 03/11/25 01:15 96 H 17 100/68 95 03/11/25 01:00 120 H 19 109/78 96 03/11/25 00:45 120 H 16 117/64 95 03/11/25 00:31 106 H 16 110/66 94 L 03/11/25 00:15 114 H 16 112/81 95 03/11/25 00:09 120 H 102/58 03/11/25 00:01 123 H 03/11/25 00:00 129 H 23 102/58 95 03/10/25 23:46 122 H 16 87/51 95 03/10/25 23:30 107 H 17 107/87 95 03/10/25 23:15 120 H 15 106/73 95 03/10/25 23:00 97 H 18 104/69 95 03/10/25 22:45 108 H 16 112/78 95 03/10/25 22:30 117 H 17 129/70 94 L 03/10/25 22:15 113 H 22 114/84 95 03/10/25 22:00 116 H 17 103/73 94 L 03/10/25 21:45 121 H 21 116/82 94 L 03/10/25 21:30 118 H 21 109/74 93 L 03/10/25 21:17 126 H 17 98/73 95 03/10/25 21:00 130 H 19 122/85 93 L 03/10/25 20:45 120 H 23 122/77 92 L 03/10/25 20:30 127 H 20 116/80 95 03/10/25 20:15 98.5 F 110 H 18 108/88 95 03/10/25 20:01 115 H 21 109/79 97 03/10/25 20:00 132 H 03/10/25 19:58 95 03/10/25 19:45 105 H 16 97/70 96 03/10/25 19:30 115 H 18 108/75 03/10/25 19:15 111 H 27 H 123/79 03/10/25 19:00 118 H 17 136/85 97 03/10/25 18:45 119 H 22 112/81 03/10/25 18:31 105 H 20 117/83 03/10/25 18:15 98.0 F 119 H 18 117/81 98 03/10/25 18:00 135 H 26 H 115/65 95 03/10/25 17:31 118 H 20 111/78 98 03/10/25 17:01 146 H 20 104/75 90 L 03/10/25 16:31 151 H 38 H 109/77 94 L 03/10/25 16:00 97.5 F 147 H 25 H 140/78 95 03/10/25 15:32 137 H 21 104/80 95 03/10/25 15:11 96 03/10/25 15:00 150 H 22 123/89 95 03/10/25 14:31 140 H 31 H 112/83 95 03/10/25 14:01 126 H 20 118/86 96 03/10/25 13:32 124 H 19 109/79 94 L 03/10/25 13:02 139 H 25 H 103/64 96 03/10/25 13:01 88 22 95 03/10/25 13:00 87 23 92 L 03/10/25 12:50 90 21 93 L 03/10/25 12:40 91 H 22 91 L 03/10/25 12:33 93 H 22 95 03/10/25 12:01 94 H 25 H 110/86 93 L 03/10/25 12:00 66 03/10/25 11:31 83 22 106/78 90 L 03/10/25 11:16 85 20 116/87 95 03/10/25 11:00 84 23 110/89 96 03/10/25 10:46 78 21 112/73 92 L 03/10/25 10:30 82 22 105/75 92 L 03/10/25 10:16 77 19 105/66 94 L 03/10/25 10:02 73 24 105/71 92 L 03/10/25 09:48 73 25 H 104/73 03/10/25 09:46 73 25 H 104/73 95 03/10/25 09:40 71 24 96 03/10/25 09:36 72 24 95 03/10/25 09:00 66 102/73 91 L 03/10/25 08:55 66 23 113/78 03/10/25 08:46 69 24 113/78 95 03/10/25 08:45 107 H 19 92 L 03/10/25 08:40 113 H 27 H 95 03/10/25 08:32 93 H 25 H 91 L 03/10/25 08:25 105 H 23 99/78 03/10/25 08:16 105 H 30 H 99/78 92 L 03/10/25 08:01 100 H 23 106/38 92 L 03/10/25 07:46 98 H 22 110/75 93 L 03/10/25 07:44 106 H 23 94/67 03/10/25 07:31 86 22 94/67 95 03/10/25 07:18 103 H 20 96 03/10/25 07:16 84 22 76/66 98 03/10/25 07:01 92 H 23 102/70 96 03/10/25 06:57 90 24 95/67 96 03/10/25 06:56 97 H 24 95 03/10/25 06:52 97 03/10/25 06:50 89 19 95 03/10/25 06:47 74 23 97 03/10/25 06:16 91 H 23 112/84 96 03/10/25 06:00 101 H 23 120/74 95 03/10/25 05:45 96 H 22 123/88 93 L 03/10/25 05:30 90 23 143/89 93 L Pain Assessment - Last Documented Pain Intensity 0 Pain Scale Used 0-10 Pain Scale Intake and Output: Intake & Output 03/08/25 03/09/25 03/10/25 03/11/25 11:59 11:59 11:59 11:59 Intake Total 1792 2305 Output Total 675 3100 Balance 1117 -795 Weight 90.718 kg 92.2 kg Lab Results: Lab Results-Last 24 Hours 03/09/25 03/10/25 03/10/25 Range/Units 07:31 08:14 08:14 WBC 15.8 H (3.98-10.04) x10^3/uL RBC 5.16 (3.93-5.22) x10^6/uL Hgb 13.9 (11.2-15.7) g/dL Hct 45.9 H (34.1-44.9) % MCV 89.0 (79.4-94.8) fL MCH 26.9 (25.6-32.2) pg MCHC 30.3 L (32.2-35.5) g/dL RDW 15.0 H (11.7-14.4) % Plt Count 324 (182-369) x10^3/uL MPV 10.6 (9.4-12.3) fL PT (9.4-12.5) SECONDS INR (0.8-3.0) D-Dimer (0.0-0.50) mg/L Puncture Site pCO2 (35-45) mmHg pO2 (75-100) mmHg Base Excess (-2.0-2.0) O2 Saturation (94-100) g/dF ABG pH (7.35-7.45) ABG HCO3 (22-28) ABG O2 Sat (Measured) (95-100) % Anjum Test A-a Gradient a/A Ratio Hemoglobin Carboxyhemoglobin (0.0-6.9) % THgb Methemoglobin (1.4-1.5) % Temperature C POC O2 Flow Rate % Sodium 139 (135-145) mmol/L Potassium 4.8 D (3.5-5.1) mmol/L Chloride 106 (98-107) mmol/L Carbon Dioxide 16 L* (22-30) mmol/L Anion Gap 21.8 H (5-15) MEQ/L BUN 22 H (7-17) mg/dL Creatinine 1.41 H (0.52-1.04) mg/dL Estimated GFR 40.9 ML/MIN Glucose 217 H (74-106) mg/dL Lactic Acid (0.4-2.0) Calcium 8.8 (8.4-10.2) mg/dL Magnesium 2.1 (1.6-2.3) mg/dL Total Bilirubin 0.70 (0.2-1.3) mg/dL AST 90 H (14-36) U/L ALT 137 H (0-35) U/L Alkaline Phosphatase 117 (38-126) U/L Serum Total Protein 6.5 (6.3-8.2) g/dL Albumin 4.0 (3.5-5.0) g/dL Procalcitonin (0.030-0.080) ng/mL C. difficile Screen NEGATIVE (NEGATIVE) C.difficile 027-NAP1-B1 PRESUMPTIVE NEGATIVE (NEGATIVE) 03/10/25 03/10/25 03/10/25 Range/Units 08:14 08:14 14:25 WBC (3.98-10.04) x10^3/uL RBC (3.93-5.22) x10^6/uL Hgb (11.2-15.7) g/dL Hct (34.1-44.9) % MCV (79.4-94.8) fL MCH (25.6-32.2) pg MCHC (32.2-35.5) g/dL RDW (11.7-14.4) % Plt Count (182-369) x10^3/uL MPV (9.4-12.3) fL PT 34.5 H (9.4-12.5) SECONDS INR 3.43 H D (0.8-3.0) D-Dimer 1.05 H* (0.0-0.50) mg/L Puncture Site pCO2 (35-45) mmHg pO2 (75-100) mmHg Base Excess (-2.0-2.0) O2 Saturation (94-100) g/dF ABG pH (7.35-7.45) ABG HCO3 (22-28) ABG O2 Sat (Measured) (95-100) % Anjmu Test A-a Gradient a/A Ratio Hemoglobin Carboxyhemoglobin (0.0-6.9) % THgb Methemoglobin (1.4-1.5) % Temperature C POC O2 Flow Rate % Sodium 138 (135-145) mmol/L Potassium 3.7 D (3.5-5.1) mmol/L Chloride 106 (98-107) mmol/L Carbon Dioxide 20 L (22-30) mmol/L Anion Gap 16.3 H (5-15) MEQ/L BUN 22 H (7-17) mg/dL Creatinine 1.22 H (0.52-1.04) mg/dL Estimated GFR 48.6 ML/MIN Glucose 172 H (74-106) mg/dL Lactic Acid (0.4-2.0) Calcium 8.6 (8.4-10.2) mg/dL Magnesium 1.9 (1.6-2.3) mg/dL Total Bilirubin 0.40 (0.2-1.3) mg/dL AST 125 H (14-36) U/L ALT 165 H (0-35) U/L Alkaline Phosphatase 113 (38-126) U/L Serum Total Protein 6.4 (6.3-8.2) g/dL Albumin 3.8 (3.5-5.0) g/dL Procalcitonin 0.275 H (0.030-0.080) ng/mL C. difficile Screen (NEGATIVE) C.difficile 027-NAP1-B1 (NEGATIVE) 03/10/25 03/10/25 03/10/25 Range/Units 15:00 15:00 23:25 WBC (3.98-10.04) x10^3/uL RBC (3.93-5.22) x10^6/uL Hgb (11.2-15.7) g/dL Hct (34.1-44.9) % MCV (79.4-94.8) fL MCH (25.6-32.2) pg MCHC (32.2-35.5) g/dL RDW (11.7-14.4) % Plt Count (182-369) x10^3/uL MPV (9.4-12.3) fL PT (9.4-12.5) SECONDS INR (0.8-3.0) D-Dimer (0.0-0.50) mg/L Puncture Site RIGHT RADIAL pCO2 35 (35-45) mmHg pO2 77 (75-100) mmHg Base Excess -1.9 (-2.0-2.0) O2 Saturation 94.8 (94-100) g/dF ABG pH 7.41 (7.35-7.45) ABG HCO3 22.2 (22-28) ABG O2 Sat (Measured) 96.8 (95-100) % Anjum Test YES A-a Gradient 107 a/A Ratio 0.42 Hemoglobin 13.8 Carboxyhemoglobin 1.1 (0.0-6.9) % THgb Methemoglobin 1.1 L (1.4-1.5) % Temperature 37.0 C POC O2 Flow Rate 32 % Sodium (135-145) mmol/L Potassium 3.6 3.8 (3.5-5.1) mmol/L Chloride (98-107) mmol/L Carbon Dioxide (22-30) mmol/L Anion Gap (5-15) MEQ/L BUN (7-17) mg/dL Creatinine (0.52-1.04) mg/dL Estimated GFR ML/MIN Glucose (74-106) mg/dL Lactic Acid 1.6 (0.4-2.0) Calcium (8.4-10.2) mg/dL Magnesium (1.6-2.3) mg/dL Total Bilirubin (0.2-1.3) mg/dL AST (14-36) U/L ALT (0-35) U/L Alkaline Phosphatase (38-126) U/L Serum Total Protein (6.3-8.2) g/dL Albumin (3.5-5.0) g/dL Procalcitonin (0.030-0.080) ng/mL C. difficile Screen (NEGATIVE) C.difficile 027-NAP1-B1 (NEGATIVE) Radiology Exams: Radiology Procedures Category Date Time Status CHEST 1 VIEW (PORTABLE) Stat Exams 03/09/25 08:16 Completed CHEST WITHOUT CONTRAST [CT] Urgent Exams 03/10/25 08:45 Completed ECHO W/2D AND DOPPLER [US] Routine Exams 03/09/25 11:34 Taken Medications: Medications Generic Name Dose Route Start Last Admin Trade Name Freq PRN Reason Stop Dose Admin Acetaminophen 650 mg 03/09/25 11:33 03/10/25 15:40 Acetaminophen 325 Mg Tablet PO 04/08/25 11:32 325 mg Q4H PRN PRN Administration PAIN, FEVER, HEADACHE Hydrocodone Bitart/Acetaminophen 1 tab 03/09/25 12:20 Hydrocodone/Apap 5/325 1 Tab Tablet PO 03/14/25 12:19 BIDPRN PRN PAIN Allopurinol 300 mg 03/10/25 10:00 03/10/25 12:42 Allopurinol 300 Mg Tablet PO 04/09/25 09:59 300 mg DAILY SADE Administration Digoxin 0.5 mg 03/10/25 17:28 03/10/25 18:06 Digoxin 0.5 Mg/2 Ml Injection IV 03/10/25 17:29 0.5 mg STAT ONE Administration Digoxin 0.25 mg 03/10/25 23:30 03/11/25 00:09 Digoxin 0.125 Mg Tablet PO 04/09/25 23:29 0.25 mg DAILY SADE Administration Digoxin 0.125 mg 03/11/25 05:30 Digoxin 0.125 Mg Tablet PO 04/10/25 05:29 DAILY SADE Gabapentin 600 mg 03/09/25 22:00 03/10/25 21:10 Gabapentin 300 Mg Capsule PO 04/08/25 21:59 600 mg BID SADE Administration Furosemide 100 mg/ Sodium 100 mls @ 10 mls/hr 03/10/25 15:00 03/11/25 00:42 Chloride IV 04/09/25 14:59 10 mls/hr .Q10H SADE 10 mls/hr Administration Cefepime HCl 2 g/ Sodium 100 mls @ 200 mls/hr 03/10/25 22:00 03/10/25 21:11 Chloride IV 04/09/25 21:59 200 mls/hr Q12HT SADE Administration Metoprolol Tartrate 25 mg 03/10/25 14:30 03/10/25 21:10 Metoprolol Tartrate 25 Mg Tab PO 04/09/25 14:29 25 mg Q8HT SADE Administration Nitroglycerin 0.4 mg 03/09/25 12:20 Nitroglycerin 0.4 Mg Tablet Bottle SL 04/08/25 12:19 Q5MIN PRN MR X 3 PRN CHEST PAIN Pantoprazole Sodium 40 mg 03/09/25 13:00 03/10/25 09:47 Protonix (Pantoprazole) 40 Mg Tablet PO 04/08/25 12:59 40 mg DAILY SADE Administration Potassium Chloride 40 meq 03/10/25 17:45 03/10/25 21:10 Potassium Chloride Tab 10 Meq Tab PO 03/10/25 21:46 40 meq Q4H SADE Administration Potassium Chloride 40 meq 03/11/25 00:00 03/11/25 00:10 Potassium Chloride Tab 10 Meq Tab PO 03/11/25 00:01 40 meq ONCE ONE Administration Potassium Chloride 40 meq 03/11/25 06:00 Potassium Chloride Tab 10 Meq Tab PO 03/11/25 06:01 ONCE ONE Simvastatin 10 mg 03/09/25 22:00 03/10/25 21:10 Simvastatin 10 Mg Tablet PO 04/08/25 21:59 10 mg HS SADE Administration Venlafaxine HCl 150 mg 03/10/25 10:00 03/10/25 12:42 Venlafaxine Hcl 75 Mg Extended Release Capsule PO 04/09/25 09:59 150 mg QAM SADE Administration Zolpidem Tartrate 10 mg 03/09/25 22:00 03/10/25 21:10 Zolpidem Tartrate 10 Mg Tablet PO 04/08/25 21:59 10 mg HS SADE Administration Discontinued Medications Generic Name Dose Route Start Last Admin Trade Name Freq PRN Reason Stop Dose Admin Albuterol Sulfate 2 puff 03/09/25 15:52 Albuterol Common Canister Inhaler IH 04/08/25 15:51 Q4H PRN PRN SHORTNESS OF BREATH/WHEEZING Amiodarone HCl 200 mg 03/10/25 17:00 03/10/25 19:55 Amiodarone Hcl 200 Mg Tab PO 04/09/25 16:59 Not Given TIDWM [facility] Aspirin 324 mg 03/09/25 08:15 03/09/25 08:25 Aspirin 81 Mg Tab.Chew PO 03/09/25 08:16 324 mg STAT ONE Administration Aspirin Confirm 03/09/25 08:22 Aspirin 81 Mg Tab.Chew Administered 03/09/25 08:23 Dose 324 mg .ROUTE .STK-MED ONE Azithromycin 500 mg 03/09/25 09:36 03/09/25 10:17 Azithromycin 250 Mg Tablet PO 03/09/25 09:37 500 mg STAT ONE Administration Azithromycin Confirm 03/09/25 10:16 Azithromycin 250 Mg Tablet Administered 03/09/25 10:17 Dose 500 mg .ROUTE .STK-MED ONE Diltiazem HCl 10 mg 03/09/25 08:15 03/09/25 08:25 Diltiazem Hcl Iv 5 Mg/Ml Vial IV 03/09/25 08:16 10 mg STAT ONE Administration Diltiazem HCl Confirm 03/09/25 08:23 Diltiazem Hcl Iv 5 Mg/Ml Vial Administered 03/09/25 08:24 Dose 50 mg IV .STK-MED ONE Doxycycline Hyclate 100 mg 03/09/25 17:00 03/10/25 08:30 Doxycycline Hyclate 100 Mg Tablet PO 04/08/25 16:59 100 mg BIDWMEALS SADE Administration Furosemide 20 mg 03/10/25 02:05 03/10/25 02:15 Furosemide 20 Mg/Vial IV 03/10/25 02:06 20 mg ONCE ONE Administration Furosemide 80 mg 03/10/25 10:15 03/10/25 10:36 Furosemide 100 Mg/10 Ml Vial IV 03/10/25 10:16 80 mg STAT ONE Administration Furosemide 80 mg 03/10/25 18:00 Furosemide 100 Mg/10 Ml Vial IV 04/09/25 17:59 0800,1800 SADE Sodium Chloride 1,000 mls @ 999 mls/hr 03/09/25 08:15 03/09/25 09:34 Sodium Chloride 0.9% 1000 Ml IV 03/09/25 09:15 Infused .Q1H1M STA Infusion Sodium Chloride Confirm 03/09/25 08:22 Sodium Chloride 0.9% 1000 Ml Administered 03/09/25 08:23 Dose 1,000 mls @ ud .ROUTE .STK-MED ONE Ceftriaxone Sodium 2 gm in 100 mls @ 200 mls/hr 03/09/25 09:36 03/09/25 10:32 Rocephin 2 Gm/100 Ml Nacl IV 03/09/25 10:05 Infused STAT ONE Infusion Ceftriaxone Sodium Confirm 03/09/25 09:40 Rocephin 2 Gm/100 Ml Nacl Administered 03/09/25 09:41 Dose 2 gm in 100 mls @ ud IV .STK-MED ONE Diltiazem HCl 100 mls @ 5 mls/hr 03/09/25 09:57 03/10/25 09:48 Cardizem Drip 100 Mg/100 Ml D5w IV 04/08/25 09:56 12.5 mg/hr .Q20H PRN 12.5 mls/hr HEART RATE/ A-FIB Titration Protocol 5 MG/HR Ceftriaxone Sodium 1 gm in 100 mls @ 200 mls/hr 03/10/25 10:00 03/10/25 10:36 Rocephin 1 Gm / 100 Ml Nacl IV 04/09/25 09:59 200 mls/hr Q24H10 SADE Administration Azithromycin 500 mg/ Sodium 250 mls @ 250 mls/hr 03/10/25 10:00 Chloride IV 04/09/25 09:59 Q24H10 SADE Potassium Chloride/Sodium Chloride 1,000 mls @ 50 mls/hr 03/09/25 12:00 03/10/25 19:54 Sodium Chloride 0.9% W/ 20 Meq Kcl/Liter IV 04/08/25 11:59 Not Given .Q20H SADE Amiodarone HCl 150 mg/ 103 mls @ 618 mls/hr 03/09/25 15:00 03/09/25 14:55 Dextrose IV 03/09/25 15:09 618 mls/hr STAT ONE Administration Protocol Amiodarone HCl/Dextrose 360 mg in 200 mls @ 33 mls/hr 03/09/25 15:00 03/10/25 19:54 Nexterone 360 Mg/200 Ml Bag IV 04/08/25 14:59 Not Given .Q6H4M [facility] Protocol Magnesium Sulfate/Water 2 gm in 50 mls @ 100 mls/hr 03/10/25 15:29 03/10/25 15:40 Magnesium Sulf 2 G/50 Ml Bag IV 03/10/25 15:58 100 mls/hr ONCE ONE Administration Metoprolol Tartrate 25 mg 03/09/25 14:30 03/09/25 15:00 Metoprolol Tartrate 25 Mg Tab PO 03/09/25 14:31 25 mg ONCE ONE Administration Metoprolol Tartrate 25 mg 03/10/25 13:00 Metoprolol Tartrate 25 Mg Tab PO 04/09/25 12:59 1300 [facility] Metoprolol Tartrate 25 mg 03/10/25 05:00 Metoprolol Tartrate 25 Mg Tab PO 04/09/25 04:59 QAM [facility] Metoprolol Tartrate 25 mg 03/10/25 05:00 Metoprolol Tartrate 25 Mg Tab PO 04/09/25 04:59 0500 [facility] Metoprolol Tartrate 25 mg 03/09/25 23:15 03/10/25 04:47 Metoprolol Tartrate 25 Mg Tab PO 04/08/25 23:14 25 mg Q6H SADE Administration Metoprolol Tartrate 25 mg 03/10/25 12:00 Metoprolol Tartrate 25 Mg Tab PO 04/09/25 11:59 Q6HT [facility] Metoprolol Tartrate 25 mg 03/10/25 22:00 Metoprolol Tartrate 25 Mg Tab PO 04/09/25 21:59 BID SADE Non-Formulary Medication 1 each 03/09/25 11:57 03/09/25 13:43 Pharmacy Dosing Request 03/09/25 11:58 Not Given STAT ONE Non-Formulary Medication 1 each 03/10/25 16:05 03/10/25 19:56 Pharmacy Dosing Request 03/10/25 16:06 Not Given STAT ONE Ondansetron HCl 4 mg 03/09/25 11:33 03/10/25 09:47 Ondansetron Hcl 4 Mg/2 Ml Vial IV 04/08/25 11:32 4 mg Q6H PRN PRN Administration NAUSEA/VOMITING Potassium Chloride 20 meq 03/09/25 12:00 03/09/25 17:43 Potassium Chloride Tab 10 Meq Tab PO 03/09/25 18:01 20 meq Q2H SADE Administration Sodium Bicarbonate 650 mg 03/10/25 10:00 03/10/25 09:46 Sodium Bicarbonate 650 Mg Tablet PO 04/09/25 09:59 650 mg BID SADE Administration Warfarin Sodium 2 mg 03/10/25 18:00 Warfarin Sodium 2 Mg Tablet PO 04/09/25 17:59 SUTUTHSA SADE Warfarin Sodium 3 mg 03/09/25 18:00 03/09/25 17:43 Warfarin Sodium 3 Mg Tablet PO 04/08/25 17:59 3 mg MOWEFR SADE Administration Multi-Disciplinary Progress Notes: Multi-Disciplinary Progress Notes 03/10/25 09:41 Radiology Note by GRABIEL MORIN TRANSTHORACIC ECHOCARDIOGRAM 03/09/2025: 1. Patient is in atrial fibrillation with a rapid ventricular response throughout study. 2. Moderately dilated atria. Normal ventricular chamber sizes. 3. Severely depressed left ventricular systolic function with an estimated EF 25-30%. The basal inferior, basal inferolateral, and basal inferoseptal wall segments contract normally. Other wall segments are severely hypokinetic. 4. Unable to determine grade of diastolic dysfunction due to undelying atrial fibrillation. 5. Normal right ventricular systolic function. 6. Mild aortic sclerosis without stenosis. 7. Doppler: Mild to moderate mitral regurgitation, mild tricuspid regurgitation. 8. Mildly elevated PA systolic pressure (32 mmHg). 9. Mildly elevated right atrial pressure (8 mmHg). 10. No pericardial effusion. Grabiel Morin MD [facility] Initialized on 03/10/25 09:41 - END OF NOTE 03/10/25 08:52 Pharmacy Note by Handy Bautista INR 3.43. Will hold Coumadin today and review level tomorrow. Initialized on 03/10/25 08:52 - END OF NOTE Assessment/Plan (1) Atrial fibrillation with RVR Current Visit: Yes Status: Acute Assessment & Plan: -Continue diltiazem infusion for rate control; transition to oral as tolerated. -Maintain telemetry monitoring and strict I&O. -Continue therapeutic anticoagulation (patient reports adherence)-managed coumadin OP with [facility] pharmacy coumadin clinic -Trend electrolytes; replete potassium >4.0 and magnesium >2.0 to reduce arrhythmia risk - replenish potassium - MG WNL at 2.0 -Obtain echocardiogram to evaluate cardiac function and structure given elevated BNP and no recent echo. -Cardiology consulted 03/10: -Cardiology consulted and discussed case with Dr. Bryant- agree with plan amiodarone drip started and cardizem dcd- metoprolol tartrate 25mg BID 03/11: -Echo Severely depressed left ventricular systolic function with an estimated EF 25-30%. -Converted to NS 03/10 in the a.m. but later back in atrial flutter -Cardiology documentation reviewed, continue metoprolol 25mg q6h. Discontinue Amiodarone and zofran. Digoxin 0.125mg daily added ; patient given magnesium infusion 03/10/25 and will repeat magnesium infusion if paatient has a recurrence of Torsades after first infusion. Target magneium at least 2.0. Target potassium 4.5 in the short term until QT corrects. Can reinstitute oral amiodarone load after QT corrects. Torsades de pointes -03/10/2025 at 1254: 10 beat run of polymorphic VT (Torsades de Pointes) at 240 bpm per cardio read -Magnesium sulfate given will repeat magnesium infusion if paatient has a re currence of Torsades after first infusion. Target magneium at least 2.0. Target potassium 4.5 in the short term until QT corrects. Can reinstitute oral amiodarone load after QT corrects. CHF with reduced EF - -CT chest demonstrates cardiomegaly, pulmonary edema, and bilateral pleural effusions, most consistent with acute decompensated HFrEF. -Echocardiogram reveals severely reduced systolic function (EF 2530%). -Diuresis started -80mg lasix given x 1 dose- cardiology to decide on further plan for diuresis 03/11: -Lasix drip initiated at 10mg/hr per cardiology on 03/10 Code(s): I48.91 - UNSPECIFIED ATRIAL FIBRILLATION Long QT Interval -Secondary to amiodarone + Zofran. Will discontinue both agents now as above. Will consider restarting amiodarone after QT corrects Chest Pain -PT reported to cardiology -reviewed note and agree with plan -Trops x 3 negative -Echo reveals severely reduced systolic function (EF 2530%). 03/11: -trop repeat negative (2) Community acquired pneumonia Current Visit: Yes Status: Acute Assessment & Plan: -Continue ceftriaxone + azithromycin -Monitor fever curve, WBC, oxygenation, symptoms. -Encourage pulmonary hygiene, early mobilization. -Repeat CXR only if clinical status worsens -Supplemental oxygen to maintain spo2 > 92% currently on RA 03/11: -ceftriaxone/azith changed to cefepime 03/10 as WBC had went up -WBC reviewed and now at 12.1 down from 15.8 Code(s): J18.9 - PNEUMONIA, UNSPECIFIED ORGANISM Metabolic acidosis -Most likely secondary to nausea/vomiting and diarrhea (3) JARED (acute kidney injury) Current Visit: Yes Status: Acute Assessment & Plan: -Creat at 1.37- baseline around 0.9 - Hold nephrotoxins. -Monitor renal/lytes daily -Received 1L fluid bolus in ED -Gentle IV fluids as tolerated, monitor for volume overload. 03/10: -Creat elevated at 1.41 -IVF contraindication with CHF 03/11: -Creat reviewed at 1.04- JARED resolved Code(s): N17.9 - ACUTE KIDNEY FAILURE, UNSPECIFIED (4) Hypokalemia Current Visit: Yes Status: Acute Assessment & Plan: -Potassium level at 3.3- replenish per protocol -Optimize with K+ > 4 and MG >2 -Tele 03/10: -Potassium level at 4.8 03/11: -Potassium at 3.8- will supplement to optimize with K>4.5 and Mg> 2 (mag level at 2.2 today) Code(s): E87.6 - HYPOKALEMIA (5) Transaminitis Current Visit: Yes Status: Acute Assessment & Plan: -Mild elevation; monitor. -Consider hepatitis panel, RUQ US if persistent or worsening 03/11: -AST/ALT reviewed and down trending - hep ga pending -asymptomatic Code(s): R74.01 - ELEVATION OF LEVELS OF LIVER TRANSAMINASE LEVELS (6) HTN (hypertension) Current Visit: Yes Status: Acute Assessment & Plan: -monitor inpatient closely while on cardizem drip 03/11 -Patient on lasix drip/antiarrythmics monitor closely Code(s): I10 - ESSENTIAL (PRIMARY) HYPERTENSION (7) Osteoarthritis Current Visit: Yes Status: Acute Assessment & Plan: -continue home regimen Code(s): M19.90 - UNSPECIFIED OSTEOARTHRITIS, UNSPECIFIED SITE (8) History of DVT (deep vein thrombosis) Current Visit: Yes Status: Acute Assessment & Plan: -On coumadin -History of 2 DVT right leg -Pharmacy doses coumadin as OP will have pharm manage while IP 03/10: -Coumadin held today due to supratherapeutic INR at 3.43 -Dose will need adjusted with amiodarone on board 03/11: -INR at 2.66 - amiodarone has been held currently - pharmacy dosing coumadin at 2mg Code(s): Z86.718 - PERSONAL HISTORY OF OTHER VENOUS THROMBOSIS AND EMBOLISM (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 The patient was at high risk for imminent life- threatening deterioration from arrhythmia, hemodynamic collapse, and/or respiratory compromise. My care included continuous hemodynamic monitoring, serial interpretation of electrocardiograms, titration of intravenous diltiazem infusion, initiation and monitoring of empiric IV antibiotics, evaluation and management of acute kidney injury, electrolyte repletion, interpretation of laboratory and radiographic studies, and coordination with pharmacy for warfarin management. Total critical care time provided by me was 45 mins, exclusive of separately billable procedures and without overlap of time spent by other providers. Code(s): I48.91 - UNSPECIFIED ATRIAL FIBRILLATION (2) Community acquired pneumonia Current Visit: Yes Status: Acute Code(s): J18.9 - PNEUMONIA, UNSPECIFIED ORGANISM (3) JARED (acute kidney injury) Current Visit: Yes Status: Acute Code(s): N17.9 - ACUTE KIDNEY FAILURE, UNSPECIFIED (4) Hypokalemia Current Visit: Yes Status: Acute Code(s): E87.6 - HYPOKALEMIA (5) Transaminitis Current Visit: Yes Status: Acute Code(s): R74.01 - ELEVATION OF LEVELS OF LIVER TRANSAMINASE LEVELS (6) HTN (hypertension) Current Visit: Yes Status: Acute Code(s): I10 - ESSENTIAL (PRIMARY) HYPERTENSION (7) Osteoarthritis Current Visit: Yes Status: Acute Code(s): M19.90 - UNSPECIFIED OSTEOARTHRITIS, UNSPECIFIED SITE (8) History of DVT (deep vein thrombosis) Current Visit: Yes Status: Acute Code(s): Z86.718 - PERSONAL HISTORY OF OTHER VENOUS THROMBOSIS AND EMBOLISM (9) FPC current use of anticoagulant Current Visit: Yes Status: Acute Code(s): Z79.01 - CORRECTION (CURRENT) USE OF ANTICOAGULANTS (10) Anxiety and depression Current Visit: Yes Status: Acute Code(s): F41.9 - ANXIETY DISORDER, UNSPECIFIED; F32.A - DEPRESSION, UNSPECIFIED (11) Metabolic acidosis Current Visit: Yes Status: Acute Code(s): E87.20 - ACIDOSIS, UNSPECIFIED
[2025-03-11 05:50] LABS: INR 2.66 (0.8-3.0); PROTIME 27.2 SECONDS (9.4-12.5)
[2025-03-11 06:07] LABS: Calcium 7.9 mg/dL (8.4-10.2); Carbon Dioxide 26.0 mmol/L (22-30); Creatinine 1 1.04 mg/dL (0.52-1.04); EST GLOMERULAR FILTRATION RATE 58.9 ML/MIN; Glucose 109.0 mg/dL (74-106); Potassium 3.7 mmol/L (3.5-5.1); SGOT/AST 77.0 U/L (14-36); SGPT/ALT 136.0 U/L (0-35); Total Protein 5.9 g/dL (6.3-8.2)
[2025-03-11] MEDS: Klor Con PO SCH (09:04)
[2025-03-11] MEDS: NORCO 5/325 MG PO PRN (11:56)
[2025-03-11] MEDS: Lopressor 25MG Tab PO SCH (11:57)
[2025-03-11] MEDS ORDERED: Lanoxin 0.5 MG/2 ML INJECTION ONE (15:46)
[2025-03-11] MEDS ORDERED: Lopressor 25MG Tab ONE (15:46)
[2025-03-11] MEDS: Lanoxin 0.5 MG/2 ML INJECTION IV ONE (15:47)
[2025-03-11] MEDS: Lopressor 25MG Tab PO ONE (15:48)
[2025-03-11] MEDS: Ativan 2 MG/1 ML VIAL IV ONE (17:26)
[2025-03-11] MEDS: Ativan 20 MG/10 ML FOR DRIPS ONLY IV ONE (17:27)
[2025-03-11] MEDS: Coumadin 3 MG PO SCH (18:24)
[2025-03-11 18:30] LABS: A-aADO2 81; ABG HEMOGLOBIN 13.9; ABG POTASSIUM 3.9 (3.5-5.1); ARTERIAL BLD GAS O2 SATURATION 95.9 % (95-100); ARTERIAL BLOOD GAS BASE EXCESS 1.3 (-2.0-2.0); ARTERIAL BLOOD GAS FIO2 28 %; ARTERIAL BLOOD GAS PCO2 40 mmHg (35-45); ARTERIAL BLOOD GAS PO2 69 mmHg (75-100); ARTERIAL BLOOD GAS TEMPERATURE 37.0 C; HCO3- 25.9 (22-28); HGB O2 SAT 93.4 g/dF (94-100); Methhemoglobin 1.1 % (1.4-1.5); paO2 pAO1 0.46
[2025-03-11 18:31] LABS: ABG SITE LEFT BRACHIAL
--- NOTE | 2025-03-11 19:39 | XRAY ---
Indication: Dyspnea. Comparison: CT chest 1 day earlier. Portable chest again demonstrates cardiomegaly with worsening pulmonary edema/vascular congestion and worsening moderate bilateral mid to lower lung atelectasis/effusions. Findings again favor cardiac decompensation/CHF versus fluid overload. Superimposed pneumonia not completely excluded.
--- NOTE | 2025-03-11 19:41 | XRAY ---
Indication: Confusion. Multiple contiguous axial images obtained through the head without contrast. Comparison: None Age-appropriate atrophy. No acute intracranial hemorrhage, abnormal extra-axial fluid collection, or mass effect. Fourth ventricle is midline without hydrocephalus. Lipscomb-white matter differentiation preserved. Bony calvarium intact. Visualized paranasal sinuses and mastoid air cells are clear. Impression: Negative CT head without contrast exam.
[2025-03-11 19:58] LABS: Glucose, Urine Negative (Negative); Protein,Urine Dip Negative (Negative); RBC 0-2 /HPF (0-5); WBC 0-2 /HPF (0-5)
--- NOTE | 2025-03-11 20:49 | PCM.NOTE ---
Date and Time: 03/11/252039 Subjective Assessment: Dyspnea with transferring from bed to bedside commode is significantly improved since yesterday. Bothered by nausea today (present since prior to admission) though was today. OBJECTIVE Furosemide 10 mg/hr started yesterday afternoon. Significant improvement in duresis. Digoxin load (10 mcg/kg) started yesterday afternoon and completed this am Metoprolol tartrate increased to q 8hrs yesterday. VR decreased to 110-120 last night. Overnight and today VR 120 -160. Additional 0.125 mg digoxin given this afternoon and metoprolol increased to q 6 hours without significant decrease in VR. Exam General:: no acute distress, alert HEENT: EOMI, JVD (1/3 way up to jaw) Cardiovascular: s1 s2, tachycardia, irregular Respiratory:: crackels (left basilar) O2 Delivery: Nasal Cannula Abdominal: active bowel sounds x 4 Extremity Exam: edema (1-2+ below her knees bilaterally) Neurologic: other (Grossly nonfocal.) Objective Data Vital Signs: Vital Signs - 24 hr Temp Pulse Resp BP BP Pulse Ox 03/11/25 20:10 96 03/11/25 18:00 96/78 03/11/25 17:31 153 H 27 H 100/73 03/11/25 17:26 141 H 26 H 99/53 03/11/25 17:01 99.5 F 150 H 20 105/85 03/11/25 16:55 138 H 25 H 99/86 03/11/25 16:54 141 H 25 H 03/11/25 16:32 145 H 19 03/11/25 16:00 147 H 19 87/67 95 03/11/25 15:00 117 H 15 104/53 03/11/25 14:30 99.3 F 133 H 21 107/71 95 03/11/25 14:00 150 H 19 110/76 96 03/11/25 13:30 144 H 23 120/73 95 03/11/25 13:09 135 H 28 H 105/58 97 03/11/25 13:08 130 H 22 96 03/11/25 13:02 144 H 19 105/58 96 03/11/25 12:31 150 H 21 104/77 95 03/11/25 12:00 157 H 19 115/66 95 03/11/25 11:30 146 H 21 98/75 03/11/25 11:00 151 H 21 97/78 97/78 96 03/11/25 10:30 142 H 20 111/75 96 03/11/25 10:00 98.4 F 131 H 21 95/63 96/77 94 L 03/11/25 09:33 98.4 F 03/11/25 09:30 128 H 19 90/74 95 03/11/25 09:16 119 H 19 97/59 97 03/11/25 09:05 131 H 26 H 88/70 97 03/11/25 08:46 139 H 27 H 109/64 94 L 03/11/25 08:45 124 H 17 106/73 93 L 03/11/25 08:41 130 H 19 106/73 94 L 03/11/25 08:35 143 H 20 112/81 93 L 03/11/25 08:33 21 96/77 95 03/11/25 08:31 129 H 26 H 112/81 93 L 03/11/25 08:13 93 L 03/11/25 08:01 98.2 F 140 H 20 127/79 93 L 03/11/25 08:00 134 H 03/11/25 07:57 143 H 24 127/79 92 L 03/11/25 07:45 137 H 29 H 123/90 93 L 03/11/25 07:30 144 H 22 103/72 90 L 03/11/25 07:15 138 H 23 100/78 03/11/25 07:01 146 H 28 H 106/82 03/11/25 06:46 135 H 32 H 109/72 03/11/25 06:31 138 H 31 H 116/72 03/11/25 06:16 132 H 25 H 86/71 89 L 03/11/25 06:01 133 H 28 H 101/76 91 L 03/11/25 06:00 145 H 22 101/76 90 L 03/11/25 05:47 142 H 21 03/11/25 05:43 115 H 98/70 03/11/25 05:31 153 H 16 98/70 94 L 03/11/25 05:15 119 H 17 107/77 87 L 03/11/25 05:00 121 H 18 100/77 89 L 03/11/25 04:45 135 H 19 105/75 95 03/11/25 04:31 112 H 19 101/63 95 03/11/25 04:15 122 H 17 123/77 94 L 03/11/25 04:00 128 H 18 98/70 96 03/11/25 03:59 125 H 03/11/25 03:45 122 H 18 112/72 95 03/11/25 03:30 122 H 16 103/70 94 L 03/11/25 03:15 121 H 17 111/76 95 03/11/25 03:00 122 H 24 95/53 95 03/11/25 02:46 126 H 17 110/71 95 03/11/25 02:30 126 H 18 114/73 95 03/11/25 02:15 123 H 24 99/77 95 03/11/25 02:00 116 H 14 85/67 94 L 03/11/25 01:46 114 H 15 103/61 95 03/11/25 01:30 116 H 16 111/68 95 03/11/25 01:15 96 H 17 100/68 95 03/11/25 01:00 120 H 19 109/78 96 03/11/25 00:45 120 H 16 117/64 95 03/11/25 00:31 106 H 16 110/66 94 L 03/11/25 00:15 114 H 16 112/81 95 03/11/25 00:09 120 H 102/58 03/11/25 00:01 123 H 03/11/25 00:00 129 H 23 102/58 95 03/10/25 23:46 122 H 16 87/51 95 03/10/25 23:30 107 H 17 107/87 95 03/10/25 23:15 120 H 15 106/73 95 03/10/25 23:00 97 H 18 104/69 95 03/10/25 22:45 108 H 16 112/78 95 03/10/25 22:30 117 H 17 129/70 94 L 03/10/25 22:15 113 H 22 114/84 95 03/10/25 22:00 116 H 17 103/73 94 L 03/10/25 21:45 121 H 21 116/82 94 L 03/10/25 21:30 118 H 21 109/74 93 L 03/10/25 21:17 126 H 17 98/73 95 03/10/25 21:00 130 H 19 122/85 93 L 03/10/25 20:45 120 H 23 122/77 92 L Pain Assessment - Last Documented Pain Intensity 4 Pain Scale Used 0-10 Pain Scale Intake and Output: Intake & Output 03/09/25 03/10/25 03/11/25 03/12/25 11:59 11:59 11:59 11:59 Intake Total 1793 3405 960 Output Total 676 0260 600 Balance 1117 -6145 360 Weight 90.718 kg 92.2 kg 87.9 kg 87.9 kg LAB: I have reviewed the Labs in [facility]. Lab Results: Lab Results-Last 24 Hours 03/10/25 03/10/25 03/11/25 Range/Units 14:25 23:25 05:21 WBC 12.1 H (3.98-10.04) x10^3/uL RBC 4.77 (3.93-5.22) x10^6/uL Hgb 12.9 (11.2-15.7) g/dL Hct 42.6 (34.1-44.9) % MCV 89.3 (79.4-94.8) fL MCH 27.0 (25.6-32.2) pg MCHC 30.3 L (32.2-35.5) g/dL RDW 15.1 H (11.7-14.4) % Plt Count 221 (182-369) x10^3/uL MPV 10.0 (9.4-12.3) fL PT (9.4-12.5) SECONDS INR (0.8-3.0) Puncture Site pCO2 (35-45) mmHg pO2 (75-100) mmHg Base Excess (-2.0-2.0) O2 Saturation (94-100) g/dF ABG pH (7.35-7.45) ABG HCO3 (22-28) ABG O2 Sat (Measured) (95-100) % Anjum Test A-a Gradient a/A Ratio Hemoglobin Carboxyhemoglobin (0.0-6.9) % THgb Methemoglobin (1.4-1.5) % Temperature C POC O2 Flow Rate % Sodium (135-145) mmol/L Potassium 3.8 (3.5-5.1) mmol/L Chloride (98-107) mmol/L Carbon Dioxide (22-30) mmol/L Anion Gap (5-15) MEQ/L BUN (7-17) mg/dL Creatinine (0.52-1.04) mg/dL Estimated GFR ML/MIN Glucose (74-106) mg/dL Calcium (8.4-10.2) mg/dL Magnesium (1.6-2.3) mg/dL Total Bilirubin (0.2-1.3) mg/dL AST (14-36) U/L ALT (0-35) U/L Alkaline Phosphatase (38-126) U/L Troponin I (0.000-0.033) ng/mL Serum Total Protein (6.3-8.2) g/dL Albumin (3.5-5.0) g/dL Urine Color (Yellow) Urine Appearance (Clear) Urine pH (4.6-8.0) Ur Specific [place] (1.005-1.030) Urine Protein (Negative) Urine Glucose (UA) (Negative) mg/dL Urine Ketones (Negative) Urine Blood (Negative) Urine Nitrite (Negative) Urine Bilirubin (Negative) Urine Urobilinogen (0.2) mg/dL Ur Leukocyte Esterase (Negative) U Hyaline Cast (Auto) (0-2) /LPF Urine Microscopic RBC (0-5) /HPF Urine Microscopic WBC (0-5) /HPF Ur Epithelial Cells (None Seen) /HPF Urine Bacteria (None Seen) /HPF Urine Culture Reflexed (NO) Hepatitis A IgM Ab Negative (Negative) Hep Bs Antigen Negative (Negative) Hep B Core IgM Ab Negative (Negative) Hep C Ab Signal/Cutoff Non Reactive (Non Reactive) Hepatitis C Interp Comment (.) 03/11/25 03/11/25 03/11/25 Range/Units 05:21 05:21 09:35 WBC (3.98-10.04) x10^3/uL RBC (3.93-5.22) x10^6/uL Hgb (11.2-15.7) g/dL Hct (34.1-44.9) % MCV (79.4-94.8) fL MCH (25.6-32.2) pg MCHC (32.2-35.5) g/dL RDW (11.7-14.4) % Plt Count (182-369) x10^3/uL MPV (9.4-12.3) fL PT 27.2 H (9.4-12.5) SECONDS INR 2.66 (0.8-3.0) Puncture Site pCO2 (35-45) mmHg pO2 (75-100) mmHg Base Excess (-2.0-2.0) O2 Saturation (94-100) g/dF ABG pH (7.35-7.45) ABG HCO3 (22-28) ABG O2 Sat (Measured) (95-100) % Anjum Test A-a Gradient a/A Ratio Hemoglobin Carboxyhemoglobin (0.0-6.9) % THgb Methemoglobin (1.4-1.5) % Temperature C POC O2 Flow Rate % Sodium 143 (135-145) mmol/L Potassium 3.7 (3.5-5.1) mmol/L Chloride 107 (98-107) mmol/L Carbon Dioxide 26 (22-30) mmol/L Anion Gap 12.7 (5-15) MEQ/L BUN 20 H (7-17) mg/dL Creatinine 1.04 (0.52-1.04) mg/dL Estimated GFR 58.9 ML/MIN Glucose 109 H (74-106) mg/dL Calcium 7.9 L (8.4-10.2) mg/dL Magnesium 2.2 (1.6-2.3) mg/dL Total Bilirubin 0.60 (0.2-1.3) mg/dL AST 77 H (14-36) U/L ALT 136 H (0-35) U/L Alkaline Phosphatase 117 (38-126) U/L Troponin I 0.020 (0.000-0.033) ng/mL Serum Total Protein 5.9 L (6.3-8.2) g/dL Albumin 3.6 (3.5-5.0) g/dL Urine Color (Yellow) Urine Appearance (Clear) Urine pH (4.6-8.0) Ur Specific [place] (1.005-1.030) Urine Protein (Negative) Urine Glucose (UA) (Negative) mg/dL Urine Ketones (Negative) Urine Blood (Negative) Urine Nitrite (Negative) Urine Bilirubin (Negative) Urine Urobilinogen (0.2) mg/dL Ur Leukocyte Esterase (Negative) U Hyaline Cast (Auto) (0-2) /LPF Urine Microscopic RBC (0-5) /HPF Urine Microscopic WBC (0-5) /HPF Ur Epithelial Cells (None Seen) /HPF Urine Bacteria (None Seen) /HPF Urine Culture Reflexed (NO) Hepatitis A IgM Ab (Negative) Hep Bs Antigen (Negative) Hep B Core IgM Ab (Negative) Hep C Ab Signal/Cutoff (Non Reactive) Hepatitis C Interp (.) 03/11/25 03/11/25 03/11/25 Range/Units 13:03 18:20 19:40 WBC (3.98-10.04) x10^3/uL RBC (3.93-5.22) x10^6/uL Hgb (11.2-15.7) g/dL Hct (34.1-44.9) % MCV (79.4-94.8) fL MCH (25.6-32.2) pg MCHC (32.2-35.5) g/dL RDW (11.7-14.4) % Plt Count (182-369) x10^3/uL MPV (9.4-12.3) fL PT (9.4-12.5) SECONDS INR (0.8-3.0) Puncture Site LEFT BRACHIAL pCO2 40 (35-45) mmHg pO2 69 L (75-100) mmHg Base Excess 1.3 (-2.0-2.0) O2 Saturation 93.4 L (94-100) g/dF ABG pH 7.42 (7.35-7.45) ABG HCO3 25.9 (22-28) ABG O2 Sat (Measured) 95.9 (95-100) % Anjum Test NOT APPLICABLE A-a Gradient 81 a/A Ratio 0.46 Hemoglobin 13.9 Carboxyhemoglobin 1.4 (0.0-6.9) % THgb Methemoglobin 1.1 L (1.4-1.5) % Temperature 37.0 C POC O2 Flow Rate 28 % Sodium (135-145) mmol/L Potassium 4.5 D 3.9 (3.5-5.1) mmol/L Chloride (98-107) mmol/L Carbon Dioxide (22-30) mmol/L Anion Gap (5-15) MEQ/L BUN (7-17) mg/dL Creatinine (0.52-1.04) mg/dL Estimated GFR ML/MIN Glucose (74-106) mg/dL Calcium (8.4-10.2) mg/dL Magnesium (1.6-2.3) mg/dL Total Bilirubin (0.2-1.3) mg/dL AST (14-36) U/L ALT (0-35) U/L Alkaline Phosphatase (38-126) U/L Troponin I (0.000-0.033) ng/mL Serum Total Protein (6.3-8.2) g/dL Albumin (3.5-5.0) g/dL Urine Color Yellow (Yellow) Urine Appearance Clear (Clear) Urine pH 5.5 (4.6-8.0) Ur Specific [place] 1.010 (1.005-1.030) Urine Protein Negative (Negative) Urine Glucose (UA) Negative (Negative) mg/dL Urine Ketones Negative (Negative) Urine Blood Trace (Negative) Urine Nitrite Negative (Negative) Urine Bilirubin Negative (Negative) Urine Urobilinogen 0.2 (0.2) mg/dL Ur Leukocyte Esterase Negative (Negative) U Hyaline Cast (Auto) 3-5 A (0-2) /LPF Urine Microscopic RBC 0-2 (0-5) /HPF Urine Microscopic WBC 0-2 (0-5) /HPF Ur Epithelial Cells None Seen (None Seen) /HPF Urine Bacteria None Seen (None Seen) /HPF Urine Culture Reflexed NO (NO) Hepatitis A IgM Ab (Negative) Hep Bs Antigen (Negative) Hep B Core IgM Ab (Negative) Hep C Ab Signal/Cutoff (Non Reactive) Hepatitis C Interp (.) Radiology Exams: Radiology Procedures Category Date Time Status CHEST 1 VIEW (PORTABLE) Stat Exams 03/11/25 18:16 Completed CHEST WITHOUT CONTRAST [CT] Urgent Exams 03/10/25 08:45 Completed HEAD WITHOUT CONTRAST [CT] Stat Exams 03/11/25 18:16 Completed TTE 03/09/2025: 1. Patient is in atrial fibrillation with a rapid ventricular response throughout study. 2. Moderately dilated atria. Normal ventricular chamber sizes. 3. Severely depressed left ventricular systolic function with an estimated EF 25-30%. The basal inferior, basal inferolateral, and basal inferoseptal wall segments contract normally. Other wall segments are severely hypokinetic. 4. Unable to determine grade of diastolic dysfunction due to undelying atrial fibrillation. 5. Normal right ventricular systolic fucntion. 6. Mild aortic sclerosis without stenosis. 7. Doppler: Mild to moderate mitral regurgitation, mild tricuspid regurgitation. 8. Mildly elevated PA systolic pressure (32 mmHg). 9. Mildly elevated right atrial pressure (8 mmHg). 10. No pericardial effusion. Chest CT without contrast 03/10/2025: 1. Cardiomegaly with pulmonary edema and bilateral effusions as detailed favoring cardiac decompensation/CHF versus fluid overload. 2. Chronic findings including arteriosclerotic disease, chronic bony findings, and old granulomatous disease. Tracing 1 Attestation: I have reviewed this EKG and interpreted as documented below. EKG Narrative: ECGs 03/11/2025: Atypical atrial flutterwith VAVB at 133 bpm. RAD. Prolonged QT interval with anterior T wave inversion. 03/10/2025 at 1028: NSR at 76 bpm. RAD. [place] 108 degrees. Long QT (QT 0.548, Qtc 0.617). 03/09/2025 at 0756: Atypical atrial flutter with VAVB at 148 bpm. RAD. [place] [address] and T wave abnormalities. 10/17/2024: NSR at 65 bpm. Incomplete RBBB. Nonspecific T wave abnormality. Telemetry 03/10/2025 at 1254: 10 beat run of polymorphic VT (Torsades de Pointes) at 240 bpm. 03/10/2025 at 1252: 5 beat run of VT at 200 bpm. 03/09/2025 at 1141: Atrial flutter with VAVB at 163 bpm. Multi-Disciplinary Progress Notes: Multi-Disciplinary Progress Notes 03/11/25 12:31 Case Management Note by Harmony Rios REVIEWED CHART- NO CHANGE IN DC PLANS AT THIS TIME- WILL NEED TO ASSESS NEEDS CLOSER TO TIME OF DC Initialized on 03/11/25 12:31 - END OF NOTE 03/11/25 10:39 Pharmacy Note by Handy Bautista INR 2.66. Will restart Coumadin at normal dose. 3mg sun-sun-sun. 2mg [id number]. Initialized on 03/11/25 10:39 - END OF NOTE Assessment & Plan (1) Atypical atrial flutter Current Visit: Yes Status: Acute Assessment & Plan: Present at admission. Chemically converted to sinus on amiodarone. Recurred yesterday afternoon. VR remains rapid 120-160 bpm on metoprolol (75mg daily in divided doses) and digoxin loaded yesterday. Increase metoprolol tartrate to 25 mg every 6 hours. Additional 0.125 digoxin given this afternoon. Continue to increase metoprolol as tolerated. I have reached our to Dr. Vishnu Hammond for an EP discussion. Patient will need an atrial flutter ablation vs His Bundle ablation and pacemaker placement. Code(s): I48.4 - ATYPICAL ATRIAL FLUTTER (2) Torsades de pointes Current Visit: Yes Status: Acute Assessment & Plan: Isolated event on amiodarone and Zofran which have both been discontinued. (S/P 2 gram magnesum sulfate infusion). No recuurence. Keep Potassium at least 4.5 and magnesiun 2.0. Repeat 2 grams magnesium sulfate if Torsades recurs. Code(s): I47.21 - TORSADES DE POINTES (3) HFrEF (heart failure with reduced ejection fraction) Current Visit: Yes Status: Acute Assessment & Plan: Diuring well on IV furosemide. Remains volume overladed. Continue furosemide infusion overnight. Code(s): I50.20 - UNSPECIFIED SYSTOLIC (CONGESTIVE) HEART FAILURE (4) Cardiorenal syndrome Current Visit: Yes Status: Acute Qualifiers: Heart failure presence: with heart failure Assessment & Plan: Resolving with diuresis. Continue furosemide infusion. Code(s): I13.10 - HYP HRT & CHR KDNY DIS W/O HRT FAIL, W STG 1-4/UNSP CHR KDNY (5) Long QT interval Current Visit: Yes Status: Acute Assessment & Plan: Off amiodarone and Zofran since yesterday. Sigificant QT prolongaton persists. Code(s): R94.31 - ABNORMAL ELECTROCARDIOGRAM [ECG] [EKG] (6) Metabolic acidosis Current Visit: Yes Status: Acute Assessment & Plan: Has improved with treatment of JARED. Code(s): E87.20 - ACIDOSIS, UNSPECIFIED (7) Chest pain Current Visit: No Status: Acute Qualifiers: Chest pain type: chest pain due to myocardial ischemia Code(s): R07.9 - CHEST PAIN, UNSPECIFIED (8) Viral syndrome Current Visit: Yes Status: Acute - Encounter Encounter: The entirety of this encounter was performed via Telemedicine using audio and visual. Permission granted by patient for this type of encounter with audo and video. Grabiel Riley MD [facility] [phone]
--- NOTE | 2025-03-12 05:51 | PCM.NOTE ---
Date and Time: 03/12/25 0545 Subjective Assessment: is a 69 year old female with pmhx of atrial fibrillation on anticoagulation, hypertension, osteoarthritis, anxiety, depression, and prior DVT (right leg on coumadin) who presented to the emergency department on 03/09/25 after being referred from urgent care for atrial fibrillation with rapid ventr icular response. She reports feeling unwell for the past 45 days with nonspecific malaise, cold sweats, diarrhea, dyspnea, and nausea prompting her to seek care at [facility] earlier today. She reports > 5 diarrheal stools per day. Viral swabs obtained there were negative. However, she continued to feel poorly and an EKG performed in clinic demonstrated atrial fibrillation with rapid ventricular response, prompting transfer to the ED. She denies chest pain, dyspnea, fever, palpitations, syncope, recent falls, or missed doses of her blood thinner. She also denies calf pain, swelling, or symptoms suggestive of DVT or pulmonary embolism. On arrival, her heart rate was in the 170s, otherwise vitals were stable. EKG showed atrial fibrillation with rapid ventricular response, ventricular rate 148 bpm, QRS 93 ms, QTc 491 ms. Lab findings significant for WBC 11.1, potassium 3.3, creatinine 1.37 (baseline 0.9), AST 52, ALT 110, and BNP 5220. CXR revealed hyperinflated lungs with new hazy right infrahilar interstitial/alveolar opacities concerning for pneumonia or pneumonitis, borderline cardiomegaly, no consolidation or effusion, with background osteopenia and minimal scoliosis. No recent echocardiogram is available for comparison. She was admitted for management of atrial fibrillation with RVR and pneumonia. 03/10/25: Patient evaluated at bedside. Reports progressive dyspnea this morning with associated nausea and vomiting overnight, likely reflecting worsening volume status. CT chest notable for cardiomegaly, pulmonary edema, and bilateral pleural effusions, favoring acute decompensated heart failure over simple fluid overload. Echocardiogram demonstrates severely reduced systolic function with LVEF 2530%. Cardiology is involved; IV diuresis initiated with ongoing monito ring of response. Rate control strategy adjusted Cardizem drip discontinued given reduced EF, and metoprolol tartrate started at 25 mg PO BID. Amiodarone infusion continued per protocol, with transition to oral therapy planned this evening. Despite these interventions, patient remains in Afib with HR persistently in the 130s,despite current regimen. Will discuss with cardiology today regarding strategy for improved rate control. 03/11/25: Patient was evaluated at the bedside and reports improvement in dyspnea, currently maintained on 2 L nasal cannula. On auscultation, crackles are present in the bilateral lower lung phipps. Telemetry monitoring demonstrates atrial flutter with heart rates in the 130s. Laboratory values show a down-trending white blood cell count to 12.1, and acute kidney injury has resolved. The plan is to continue diuresis with the ongoing Lasix drip, optimize electrolytes, and monitor volume status closely. Metoprolol 25 mg every 6 hours is being administered per cardiology recommendations, in addition to digoxin 0.125 mg daily for rate control. Anticoagulation with Coumadin has been resumed at 2 mg daily, with INR monitoring. The patient does report back and shoulder pain, which will be further evaluated and managed as appropriate. 03/12/25: Overnight events -RN reported patient having bouts of confusion and increased dyspnea. CT head negative. CXR showing cardiomegaly with worsening pulmonary edema/vascular congestion and worsening moderate bilateral mid to lower lung atelectasis/effusions. Findings again favor cardiac decompensation/CHF versus fluid overload. Superimposed pneumonia not completely excluded. Patient remains on lasix drip. Patient reports she is feeling back to baseline this morning. A&O x 3. Dyspnea has improved. Discussed case with Cardiology- Metoprolol increased to 37.5mg q6h, lasix drip continued, and potassium supplementation continued for goal of >4.5 for optimization. Cardiology to discuss patient with EP cardiology for possible transfer for ablation consideration. JARED has resolved. WBC improved. - Review of Systems Constitutional: Weakness Eyes: No Symptoms Ears, Nose, & Throat: No Symptoms Respiratory: Short Of Breath Cardiac: Edema (BLE trace) Abdominal/Gastrointestinal: No Symptoms Genitourinary Symptoms: No Symptoms Musculoskeletal: No Symptoms Skin: No Symptoms Neurological: No Symptoms Psychological: Depression Endocrine: No Symptoms Hematologic/Lymphatic: No Symptoms Immunological/Allergic: No Symptoms Objective Exam General Appearance: no apparent distress Neurologic Exam: alert, oriented x 3, cooperative Skin Exam: normal color Eye Exam: PERRL Ears, Nose, Throat Exam: normal ENT inspection Neck Exam: JVD Respiratory Exam: crackles/rales Cardiovascular Exam: tachycardia, irregular Gastrointestinal/Abdomen Exam: soft, normal bowel sounds Extremity Exam: normal inspection Back Exam: normal inspection Pelvic Exam: deferred Rectal Exam: deferred Objective Data Vital Signs: Vital Signs - 24 hr Temp Pulse Resp BP BP Pulse Ox 03/12/25 05:30 124 H 14 114/75 95 03/12/25 05:01 128 H 17 103/69 96 03/12/25 04:42 96.6 F 142 H 16 128/68 97 03/12/25 04:01 136 H 24 94/75 95 03/12/25 04:00 136 H 03/12/25 03:30 122 H 25 H 97/66 96 03/12/25 03:00 107 H 24 97/59 97 03/12/25 02:31 120 H 20 104/59 96 03/12/25 02:00 117 H 15 103/58 96 03/12/25 01:30 118 H 14 112/61 96 03/12/25 01:00 132 H 30 H 109/63 95 03/12/25 00:30 133 H 17 120/58 96 03/12/25 00:01 97.6 F 141 H 17 98/63 95 03/11/25 23:31 134 H 35 H 104/80 96 03/11/25 23:00 164 H 17 117/89 96 03/11/25 22:30 148 H 20 123/93 95 03/11/25 22:01 162 H 19 89/71 94 L 03/11/25 21:30 158 H 19 115/76 95 03/11/25 21:00 171 H 24 104/86 95 03/11/25 20:30 157 H 23 103/78 95 03/11/25 20:10 96 03/11/25 20:00 98.8 F 173 H 22 110/91 96 03/11/25 19:31 137 H 20 108/73 95 03/11/25 19:10 161 H 23 111/80 95 03/11/25 18:00 96/78 03/11/25 17:31 153 H 27 H 100/73 03/11/25 17:26 141 H 26 H 99/53 03/11/25 17:01 99.5 F 150 H 20 105/85 03/11/25 16:55 138 H 25 H 99/86 03/11/25 16:54 141 H 25 H 03/11/25 16:32 145 H 19 03/11/25 16:00 147 H 19 87/67 95 03/11/25 15:00 117 H 15 104/53 95 03/11/25 14:30 99.3 F 133 H 21 107/71 95 03/11/25 14:00 150 H 19 110/76 96 03/11/25 13:30 144 H 23 120/73 95 03/11/25 13:09 135 H 28 H 105/58 97 03/11/25 13:08 130 H 22 96 03/11/25 13:02 144 H 19 105/58 96 03/11/25 12:31 150 H 21 104/77 95 03/11/25 12:00 157 H 19 115/66 95 03/11/25 11:30 146 H 21 98/75 03/11/25 11:00 151 H 21 97/78 97/78 96 03/11/25 10:30 142 H 20 111/75 96 03/11/25 10:00 98.4 F 131 H 21 95/63 96/77 94 L 03/11/25 09:33 98.4 F 03/11/25 09:30 128 H 19 90/74 95 03/11/25 09:16 119 H 19 97/59 97 03/11/25 09:05 131 H 26 H 88/70 97 03/11/25 08:46 139 H 27 H 109/64 94 L 03/11/25 08:45 124 H 17 106/73 93 L 03/11/25 08:41 130 H 19 106/73 94 L 03/11/25 08:35 143 H 20 112/81 93 L 03/11/25 08:33 21 96/77 95 03/11/25 08:31 129 H 26 H 112/81 93 L 03/11/25 08:13 93 L 03/11/25 08:01 98.2 F 140 H 20 127/79 93 L 03/11/25 08:00 134 H 03/11/25 07:57 143 H 24 127/79 92 L 03/11/25 07:45 137 H 29 H 123/90 93 L 03/11/25 07:30 144 H 22 103/72 90 L 03/11/25 07:15 138 H 23 100/78 03/11/25 07:01 146 H 28 H 106/82 03/11/25 06:46 135 H 32 H 109/72 03/11/25 06:31 138 H 31 H 116/72 03/11/25 06:16 132 H 25 H 86/71 89 L 03/11/25 06:01 133 H 28 H 101/76 91 L 03/11/25 06:00 145 H 22 101/76 90 L 03/11/25 05:47 142 H 21 Pain Assessment - Last Documented Pain Intensity 0 Pain Scale Used 0-10 Pain Scale Intake and Output: Intake & Output 03/09/25 03/10/25 03/11/25 03/12/25 11:59 11:59 11:59 11:59 Intake Total 1792 3405 1200 Output Total 123 4684 2000 Balance 1742 -1127 -696 Weight 90.718 kg 92.2 kg 87.9 kg 87.9 kg Lab Results: Lab Results-Last 24 Hours 03/10/25 03/11/25 03/11/25 Range/Units 14:25 05:21 05:21 PT 27.2 H (9.4-12.5) SECONDS INR 2.66 (0.8-3.0) Puncture Site pCO2 (35-45) mmHg pO2 (75-100) mmHg Base Excess (-2.0-2.0) O2 Saturation (94-100) g/dF ABG pH (7.35-7.45) ABG HCO3 (22-28) ABG O2 Sat (Measured) (95-100) % [facility] Test A-a Gradient a/A Ratio Hemoglobin Carboxyhemoglobin (0.0-6.9) % THgb Methemoglobin (1.4-1.5) % Temperature C POC O2 Flow Rate % Sodium 143 (135-145) mmol/L Potassium 3.7 (3.5-5.1) mmol/L Chloride 107 (98-107) mmol/L Carbon Dioxide 26 (22-30) mmol/L Anion Gap 12.7 (5-15) MEQ/L BUN 20 H (7-17) mg/dL Creatinine 1.04 (0.52-1.04) mg/dL Estimated GFR 58.9 ML/MIN Glucose 109 H (74-106) mg/dL Calcium 7.9 L (8.4-10.2) mg/dL Magnesium 2.2 (1.6-2.3) mg/dL Total Bilirubin 0.60 (0.2-1.3) mg/dL AST 77 H (14-36) U/L ALT 136 H (0-35) U/L Alkaline Phosphatase 117 (38-126) U/L Troponin I (0.000-0.033) ng/mL Serum Total Protein 5.9 L (6.3-8.2) g/dL Albumin 3.6 (3.5-5.0) g/dL Urine Color (Yellow) Urine Appearance (Clear) Urine pH (4.6-8.0) Ur Specific [place] (1.005-1.030) Urine Protein (Negative) Urine Glucose (UA) (Negative) mg/dL Urine Ketones (Negative) Urine Blood (Negative) Urine Nitrite (Negative) Urine Bilirubin (Negative) Urine Urobilinogen (0.2) mg/dL Ur Leukocyte Esterase (Negative) U Hyaline Cast (Auto) (0-2) /LPF Urine Microscopic RBC (0-5) /HPF Urine Microscopic WBC (0-5) /HPF Ur Epithelial Cells (None Seen) /HPF Urine Bacteria (None Seen) /HPF Urine Culture Reflexed (NO) Hepatitis A IgM Ab Negative (Negative) Hep Bs Antigen Negative (Negative) Hep B Core IgM Ab Negative (Negative) Hep C Ab Signal/Cutoff Non Reactive (Non Reactive) Hepatitis C Interp Comment (.) 03/11/25 03/11/25 03/11/25 Range/Units 09:35 13:03 18:20 PT (9.4-12.5) SECONDS INR (0.8-3.0) Puncture Site LEFT BRACHIAL pCO2 40 (35-45) mmHg pO2 69 L (75-100) mmHg Base Excess 1.3 (-2.0-2.0) O2 Saturation 93.4 L (94-100) g/dF ABG pH 7.42 (7.35-7.45) ABG HCO3 25.9 (22-28) ABG O2 Sat (Measured) 95.9 (95-100) % [facility] Test NOT APPLICABLE A-a Gradient 81 a/A Ratio 0.46 Hemoglobin 13.9 Carboxyhemoglobin 1.4 (0.0-6.9) % THgb Methemoglobin 1.1 L (1.4-1.5) % Temperature 37.0 C POC O2 Flow Rate 28 % Sodium (135-145) mmol/L Potassium 4.5 D 3.9 (3.5-5.1) mmol/L Chloride (98-107) mmol/L Carbon Dioxide (22-30) mmol/L Anion Gap (5-15) MEQ/L BUN (7-17) mg/dL Creatinine (0.52-1.04) mg/dL Estimated GFR ML/MIN Glucose (74-106) mg/dL Calcium (8.4-10.2) mg/dL Magnesium (1.6-2.3) mg/dL Total Bilirubin (0.2-1.3) mg/dL AST (14-36) U/L ALT (0-35) U/L Alkaline Phosphatase (38-126) U/L Troponin I 0.020 (0.000-0.033) ng/mL Serum Total Protein (6.3-8.2) g/dL Albumin (3.5-5.0) g/dL Urine Color (Yellow) Urine Appearance (Clear) Urine pH (4.6-8.0) Ur Specific [place] (1.005-1.030) Urine Protein (Negative) Urine Glucose (UA) (Negative) mg/dL Urine Ketones (Negative) Urine Blood (Negative) Urine Nitrite (Negative) Urine Bilirubin (Negative) Urine Urobilinogen (0.2) mg/dL Ur Leukocyte Esterase (Negative) U Hyaline Cast (Auto) (0-2) /LPF Urine Microscopic RBC (0-5) /HPF Urine Microscopic WBC (0-5) /HPF Ur Epithelial Cells (None Seen) /HPF Urine Bacteria (None Seen) /HPF Urine Culture Reflexed (NO) Hepatitis A IgM Ab (Negative) Hep Bs Antigen (Negative) Hep B Core IgM Ab (Negative) Hep C Ab Signal/Cutoff (Non Reactive) Hepatitis C Interp (.) 03/11/25 Range/Units 19:40 PT (9.4-12.5) SECONDS INR (0.8-3.0) Puncture Site pCO2 (35-45) mmHg pO2 (75-100) mmHg Base Excess (-2.0-2.0) O2 Saturation (94-100) g/dF ABG pH (7.35-7.45) ABG HCO3 (22-28) ABG O2 Sat (Measured) (95-100) % [place] Test A-a Gradient a/A Ratio Hemoglobin Carboxyhemoglobin (0.0-6.9) % THgb Methemoglobin (1.4-1.5) % Temperature C POC O2 Flow Rate % Sodium (135-145) mmol/L Potassium (3.5-5.1) mmol/L Chloride (98-107) mmol/L Carbon Dioxide (22-30) mmol/L Anion Gap (5-15) MEQ/L BUN (7-17) mg/dL Creatinine (0.52-1.04) mg/dL Estimated GFR ML/MIN Glucose (74-106) mg/dL Calcium (8.4-10.2) mg/dL Magnesium (1.6-2.3) mg/dL Total Bilirubin (0.2-1.3) mg/dL AST (14-36) U/L ALT (0-35) U/L Alkaline Phosphatase (38-126) U/L Troponin I (0.000-0.033) ng/mL Serum Total Protein (6.3-8.2) g/dL Albumin (3.5-5.0) g/dL Urine Color Yellow (Yellow) Urine Appearance Clear (Clear) Urine pH 5.5 (4.6-8.0) Ur Specific [place] 1.010 (1.005-1.030) Urine Protein Negative (Negative) Urine Glucose (UA) Negative (Negative) mg/dL Urine Ketones Negative (Negative) Urine Blood Trace (Negative) Urine Nitrite Negative (Negative) Urine Bilirubin Negative (Negative) Urine Urobilinogen 0.2 (0.2) mg/dL Ur Leukocyte Esterase Negative (Negative) U Hyaline Cast (Auto) 3-5 A (0-2) /LPF Urine Microscopic RBC 0-2 (0-5) /HPF Urine Microscopic WBC 0-2 (0-5) /HPF Ur Epithelial Cells None Seen (None Seen) /HPF Urine Bacteria None Seen (None Seen) /HPF Urine Culture Reflexed NO (NO) Hepatitis A IgM Ab (Negative) Hep Bs Antigen (Negative) Hep B Core IgM Ab (Negative) Hep C Ab Signal/Cutoff (Non Reactive) Hepatitis C Interp (.) Radiology Exams: Radiology Procedures Category Date Time Status CHEST 1 VIEW (PORTABLE) Stat Exams 03/11/25 18:16 Completed CHEST WITHOUT CONTRAST [CT] Urgent Exams 03/10/25 08:45 Completed HEAD WITHOUT CONTRAST [CT] Stat Exams 03/11/25 18:16 Completed Medications: Medications Generic Name Dose Route Start Last Admin Trade Name Freq PRN Reason Stop Dose Admin Acetaminophen 650 mg 03/09/25 11:33 03/10/25 15:40 Acetaminophen 325 Mg Tablet PO 04/08/25 11:32 325 mg Q4H PRN PRN Administration PAIN, FEVER, HEADACHE Hydrocodone Bitart/Acetaminophen 1 tab 03/09/25 12:20 03/12/25 01:18 Hydrocodone/Apap 5/325 1 Tab Tablet PO 03/14/25 12:19 1 tab BIDPRN PRN Administration PAIN Allopurinol 300 mg 03/10/25 10:00 03/11/25 09:04 Allopurinol 300 Mg Tablet PO 04/09/25 09:59 300 mg DAILY SADE Administration Digoxin 0.125 mg 03/12/25 10:00 Digoxin 0.125 Mg Tablet PO 04/11/25 09:59 DAILY SADE Gabapentin 600 mg 03/09/25 22:00 03/11/25 21:08 Gabapentin 300 Mg Capsule PO 04/08/25 21:59 600 mg BID ASDE Administration Furosemide 100 mg/ Sodium 100 mls @ 10 mls/hr 03/10/25 15:00 03/11/25 21:09 Chloride IV 04/09/25 14:59 10 mls/hr .Q10H SADE 10 mls/hr Administration Cefepime HCl 2 g/ Sodium 100 mls @ 200 mls/hr 03/10/25 22:00 03/11/25 21:08 Chloride IV 04/09/25 21:59 200 mls/hr Q12HT SADE Administration Melatonin 3 mg 03/11/25 18:06 Melatonin 3 Mg Tablet PO 04/10/25 18:05 HS PRN PRN INSOMNIA Metoprolol Tartrate 25 mg 03/11/25 12:00 03/12/25 05:06 Metoprolol Tartrate 25 Mg Tab PO 04/10/25 11:59 25 mg Q6HT SADE Administration Nitroglycerin 0.4 mg 03/09/25 12:20 Nitroglycerin 0.4 Mg Tablet Bottle SL 04/08/25 12:19 Q5MIN PRN MR X 3 PRN CHEST PAIN Pantoprazole Sodium 40 mg 03/09/25 13:00 03/11/25 09:04 Protonix (Pantoprazole) 40 Mg Tablet PO 04/08/25 12:59 40 mg DAILY SADE Administration Potassium Chloride 20 meq 03/11/25 08:31 03/11/25 21:09 Potassium Chloride Tab 10 Meq Tab PO 04/10/25 08:30 20 meq BID SADE Administration Simvastatin 10 mg 03/09/25 22:00 03/11/25 21:09 Simvastatin 10 Mg Tablet PO 04/08/25 21:59 10 mg HS SADE Administration Venlafaxine HCl 150 mg 03/10/25 10:00 03/11/25 09:04 Venlafaxine Hcl 75 Mg Extended Release Capsule PO 04/09/25 09:59 150 mg QAM SADE Administration Warfarin Sodium 3 mg 03/11/25 18:00 03/11/25 18:24 Warfarin Sodium 3 Mg Tablet PO 04/10/25 17:59 3 mg MOWEFR SADE Administration Warfarin Sodium 2 mg 03/12/25 18:00 Warfarin Sodium 2 Mg Tablet PO 04/11/25 17:59 SUTUTHSA [facility] Zolpidem Tartrate 10 mg 03/09/25 22:00 03/10/25 21:10 Zolpidem Tartrate 10 Mg Tablet PO 04/08/25 21:59 10 mg HS SADE Administration Discontinued Medications Generic Name Dose Route Start Last Admin Trade Name Freq PRN Reason Stop Dose Admin Albuterol Sulfate 2 puff 03/09/25 15:52 Albuterol Common Canister Inhaler IH 04/08/25 15:51 Q4H PRN PRN SHORTNESS OF BREATH/WHEEZING Amiodarone HCl 200 mg 03/10/25 17:00 03/10/25 19:55 Amiodarone Hcl 200 Mg Tab PO 04/09/25 16:59 Not Given TIDWM [facility] Aspirin 324 mg 03/09/25 08:15 03/09/25 08:25 Aspirin 81 Mg Tab.Chew PO 03/09/25 08:16 324 mg STAT ONE Administration Aspirin Confirm 03/09/25 08:22 Aspirin 81 Mg Tab.Chew Administered 03/09/25 08:23 Dose 324 mg .ROUTE .STK-MED ONE Azithromycin 500 mg 03/09/25 09:36 03/09/25 10:17 Azithromycin 250 Mg Tablet PO 03/09/25 09:37 500 mg STAT ONE Administration Azithromycin Confirm 03/09/25 10:16 Azithromycin 250 Mg Tablet Administered 03/09/25 10:17 Dose 500 mg .ROUTE .STK-MED ONE Digoxin 0.5 mg 03/10/25 17:28 03/10/25 18:06 Digoxin 0.5 Mg/2 Ml Injection IV 03/10/25 17:29 0.5 mg STAT ONE Administration Digoxin 0.25 mg 03/10/25 23:30 03/11/25 00:09 Digoxin 0.125 Mg Tablet PO 04/09/25 23:29 0.25 mg DAILY SADE Administration Digoxin 0.125 mg 03/11/25 05:30 03/11/25 05:43 Digoxin 0.125 Mg Tablet PO 04/10/25 05:29 0.125 mg DAILY SADE Administration Digoxin 0.25 mg 03/11/25 15:43 03/11/25 15:47 Digoxin 0.5 Mg/2 Ml Injection IV 03/11/25 15:44 0.25 mg STAT ONE Administration Diltiazem HCl 10 mg 03/09/25 08:15 03/09/25 08:25 Diltiazem Hcl Iv 5 Mg/Ml Vial IV 03/09/25 08:16 10 mg STAT ONE Administration Diltiazem HCl Confirm 03/09/25 08:23 Diltiazem Hcl Iv 5 Mg/Ml Vial Administered 03/09/25 08:24 Dose 50 mg IV .STK-MED ONE Doxycycline Hyclate 100 mg 03/09/25 17:00 03/10/25 08:30 Doxycycline Hyclate 100 Mg Tablet PO 04/08/25 16:59 100 mg BIDWMEALS SADE Administration Furosemide 20 mg 03/10/25 02:05 03/10/25 02:15 Furosemide 20 Mg/Vial IV 03/10/25 02:06 20 mg ONCE ONE Administration Furosemide 80 mg 03/10/25 10:15 03/10/25 10:36 Furosemide 100 Mg/10 Ml Vial IV 03/10/25 10:16 80 mg STAT ONE Administration Furosemide 80 mg 03/10/25 18:00 Furosemide 100 Mg/10 Ml Vial IV 04/09/25 17:59 0800,1800 [facility] Sodium Chloride 1,000 mls @ 999 mls/hr 03/09/25 08:15 03/09/25 09:34 Sodium Chloride 0.9% 1000 Ml IV 03/09/25 09:15 Infused .Q1H1M STA Infusion Sodium Chloride Confirm 03/09/25 08:22 Sodium Chloride 0.9% 1000 Ml Administered 03/09/25 08:23 Dose 1,000 mls @ ud .ROUTE .STK-MED ONE Ceftriaxone Sodium 2 gm in 100 mls @ 200 mls/hr 03/09/25 09:36 03/09/25 10:32 Rocephin 2 Gm/100 Ml Nacl IV 03/09/25 10:05 Infused STAT ONE Infusion Ceftriaxone Sodium Confirm 03/09/25 09:40 Rocephin 2 Gm/100 Ml Nacl Administered 03/09/25 09:41 Dose 2 gm in 100 mls @ ud IV .STK-MED ONE Diltiazem HCl 100 mls @ 5 mls/hr 03/09/25 09:57 03/10/25 09:48 Cardizem Drip 100 Mg/100 Ml D5w IV 04/08/25 09:56 12.5 mg/hr .Q20H PRN 12.5 mls/hr HEART RATE/ A-FIB Titration Protocol 5 MG/HR Ceftriaxone Sodium 1 gm in 100 mls @ 200 mls/hr 03/10/25 10:00 03/10/25 10:36 Rocephin 1 Gm / 100 Ml Nacl IV 04/09/25 09:59 200 mls/hr Q24H10 SADE Administration Azithromycin 500 mg/ Sodium 250 mls @ 250 mls/hr 03/10/25 10:00 Chloride IV 04/09/25 09:59 Q24H10 SADE Potassium Chloride/Sodium Chloride 1,000 mls @ 50 mls/hr 03/09/25 12:00 03/10/25 19:54 Sodium Chloride 0.9% W/ 20 Meq Kcl/Liter IV 04/08/25 11:59 Not Given .Q20H SADE Amiodarone HCl 150 mg/ 103 mls @ 618 mls/hr 03/09/25 15:00 03/09/25 14:55 Dextrose IV 03/09/25 15:09 618 mls/hr STAT ONE Administration Protocol Amiodarone HCl/Dextrose 360 mg in 200 mls @ 33 mls/hr 03/09/25 15:00 03/10/25 19:54 Nexterone 360 Mg/200 Ml Bag IV 04/08/25 14:59 Not Given .Q6H4M SADE Protocol Magnesium Sulfate/Water 2 gm in 50 mls @ 100 mls/hr 03/10/25 15:29 03/10/25 15:40 Magnesium Sulf 2 G/50 Ml Bag IV 03/10/25 15:58 100 mls/hr ONCE ONE Administration Lorazepam 0.25 mg 03/11/25 16:37 03/11/25 17:26 Lorazepam 2 Mg/1 Ml 2 Mg Vial IV 03/11/25 16:38 Not Given STAT ONE Lorazepam 0.25 mg 03/11/25 17:00 03/11/25 17:27 Lorazepam 20 Mg/10 Ml Mdv IV 03/11/25 17:01 Not Given STAT ONE Metoprolol Tartrate 25 mg 03/09/25 14:30 03/09/25 15:00 Metoprolol Tartrate 25 Mg Tab PO 03/09/25 14:31 25 mg ONCE ONE Administration Metoprolol Tartrate 25 mg 03/10/25 13:00 Metoprolol Tartrate 25 Mg Tab PO 04/09/25 12:59 1300 SADE Metoprolol Tartrate 25 mg 03/10/25 05:00 Metoprolol Tartrate 25 Mg Tab PO 04/09/25 04:59 QAM SADE Metoprolol Tartrate 25 mg 03/10/25 05:00 Metoprolol Tartrate 25 Mg Tab PO 04/09/25 04:59 0500 SADE Metoprolol Tartrate 25 mg 03/09/25 23:15 03/10/25 04:47 Metoprolol Tartrate 25 Mg Tab PO 04/08/25 23:14 25 mg Q6H SADE Administration Metoprolol Tartrate 25 mg 03/10/25 12:00 Metoprolol Tartrate 25 Mg Tab PO 04/09/25 11:59 Q6HT SADE Metoprolol Tartrate 25 mg 03/10/25 22:00 Metoprolol Tartrate 25 Mg Tab PO 04/09/25 21:59 BID SADE Metoprolol Tartrate 25 mg 03/10/25 14:30 03/11/25 07:39 Metoprolol Tartrate 25 Mg Tab PO 04/09/25 14:29 25 mg Q8HT SADE Administration Metoprolol Tartrate 25 mg 03/11/25 15:44 03/11/25 15:48 Metoprolol Tartrate 25 Mg Tab PO 03/11/25 15:45 25 mg STAT ONE Administration Non-Formulary Medication 1 each 03/09/25 11:57 03/09/25 13:43 Pharmacy Dosing Request 03/09/25 11:58 Not Given STAT ONE Non-Formulary Medication 1 each 03/10/25 16:05 03/10/25 19:56 Pharmacy Dosing Request 03/10/25 16:06 Not Given STAT ONE Ondansetron HCl 4 mg 03/09/25 11:33 03/10/25 09:47 Ondansetron Hcl 4 Mg/2 Ml Vial IV 04/08/25 11:32 4 mg Q6H PRN PRN Administration NAUSEA/VOMITING Potassium Chloride 20 meq 03/09/25 12:00 03/09/25 17:43 Potassium Chloride Tab 10 Meq Tab PO 03/09/25 18:01 20 meq Q2H SADE Administration Potassium Chloride 40 meq 03/10/25 17:45 03/10/25 21:10 Potassium Chloride Tab 10 Meq Tab PO 03/10/25 21:46 40 meq Q4H SADE Administration Potassium Chloride 40 meq 03/11/25 00:00 03/11/25 00:10 Potassium Chloride Tab 10 Meq Tab PO 03/11/25 00:01 40 meq ONCE ONE Administration Potassium Chloride 40 meq 03/11/25 06:00 03/11/25 05:48 Potassium Chloride Tab 10 Meq Tab PO 03/11/25 06:01 40 meq ONCE ONE Administration Sodium Bicarbonate 650 mg 03/10/25 10:00 03/10/25 09:46 Sodium Bicarbonate 650 Mg Tablet PO 04/09/25 09:59 650 mg BID SADE Administration Warfarin Sodium 2 mg 03/10/25 18:00 Warfarin Sodium 2 Mg Tablet PO 04/09/25 17:59 SUTUTHSA SADE Warfarin Sodium 3 mg 03/09/25 18:00 03/09/25 17:43 Warfarin Sodium 3 Mg Tablet PO 04/08/25 17:59 3 mg MOWEFR SADE Administration Multi-Disciplinary Progress Notes: Multi-Disciplinary Progress Notes 03/11/25 12:31 Case Management Note by Harmony Rios REVIEWED CHART- NO CHANGE IN DC PLANS AT THIS TIME- WILL NEED TO ASSESS NEEDS CLOSER TO TIME OF DC Initialized on 03/11/25 12:31 - END OF NOTE 03/11/25 10:39 Pharmacy Note by Handy Bautista INR 2.66. Will restart Coumadin at normal dose. 3mg [id number]. 2mg [id number]. Initialized on 03/11/25 10:39 - END OF NOTE Assessment/Plan (1) Atrial fibrillation with RVR Current Visit: Yes Status: Acute Assessment & Plan: -Continue diltiazem infusion for rate control; transition to oral as tolerated. -Maintain telemetry monitoring and strict I&O. -Continue therapeutic anticoagulation (patient reports adherence)-managed coumadin OP with [facility] pharmacy coumadin clinic -Trend electrolytes; replete potassium >4.0 and magnesium >2.0 to reduce arrhythmia risk - replenish potassium - MG WNL at 2.0 -Obtain echocardiogram to evaluate cardiac function and structure given elevated BNP and no recent echo. -Cardiology consulted 03/10: -Cardiology consulted and discussed case with Dr. Bryant- agree with plan amiodarone drip started and cardizem dcd- metoprolol tartrate 25mg BID 03/11: -Echo Severely depressed left ventricular systolic function with an estimated EF 25-30%. -Converted to NS 03/10 in the a.m. but later back in atrial flutter -Cardiology documentation reviewed, continue metoprolol 25mg q6h. Discontinue Amiodarone and zofran. Digoxin 0.125mg daily added ; patient given magnesium infusion 03/10/25 and will repeat magnesium infusion if paatient has a recurrence of Torsades after first infusion. Target magneium at least 2.0. Target potassium 4.5 in the short term until QT corrects. Can reinstitute oral amiodarone load after QT corrects. 03/12: -Cardiology note reviewed plan to continue to increase metoprolol as tolerated. He has discussed with Dr. Vishnu Hammond for an EP discussion. Patient will need an atrial flutter ablation vs His Bundle ablation and pacemaker placement. -Continue digoxin 0.125mg daily, Metoprolol 25mg q6h, and lasix drip per cards r ecommendations -03/11 I&O balance -2.5L 03/12: -Discussed case with cardiology- agree with plan to increase metoprolol to 37.5mg q6h, continue lasix drip, continue digoxin 0.125, continue potassium supp lementation for goal >4.5 Mg >2 (2.1 today) -consider transfer - cardiology to speak with EP cardiology at [facility] today Torsades de pointes -03/10/2025 at 1254: 10 beat run of polymorphic VT (Torsades de Pointes) at 240 bpm per cardio read -Magnesium sulfate given will repeat magnesium infusion if paatient has a recurrence of Torsades after first infusion. Target magneium at least 2.0. Target potassium 4.5 in the short term until QT corrects. Can reinstitute oral amiodarone load after QT corrects. CHF with reduced EF - -CT chest demonstrates cardiomegaly, pulmonary edema, and bilateral pleural effusions, most consistent with acute decompensated HFrEF. -Echocardiogram reveals severely reduced systolic function (EF 2530%). -Diuresis started -80mg lasix given x 1 dose- cardiology to decide on further plan for diuresis 03/11: -Lasix drip initiated at 10mg/hr per cardiology on 03/10 03/12: -CXR from 03/11 showing cardiomegaly with worsening pulmonary edema/vascular congestion and worsening moderate bilateral mid to lower lung atelectasis/effusions. Findings again favor cardiac decompensation/CHF versus fluid overload. Superimposed pneumonia not completely excluded. Patient remains on lasix drip. -Cardiology following agree with plan Code(s): I48.91 - UNSPECIFIED ATRIAL FIBRILLATION Long QT Interval -Secondary to amiodarone + Zofran. Will discontinue both agents now as above. Will consider restarting amiodarone after QT corrects Chest Pain -PT reported to cardiology -reviewed note and agree with plan -Trops x 3 negative -Echo reveals severely reduced systolic function (EF 2530%). 03/11: -trop repeat negative (2) Community acquired pneumonia Current Visit: Yes Status: Acute Assessment & Plan: -Continue ceftriaxone + azithromycin -Monitor fever curve, WBC, oxygenation, symptoms. -Encourage pulmonary hygiene, early mobilization. -Repeat CXR only if clinical status worsens -Supplemental oxygen to maintain spo2 > 92% currently on RA 03/11: -ceftriaxone/azith changed to cefepime 03/10 as WBC had went up -WBC reviewed and now at 12.1 down from 15.8 03/12: -WBC reviewed at 12.5 -Continue cefepime Code(s): J18.9 - PNEUMONIA, UNSPECIFIED ORGANISM Metabolic acidosis -Most likely secondary to nausea/vomiting and diarrhea 03/12: -Resolved co2 level at 27, GAP at 11.8 (3) JARED (acute kidney injury) Current Visit: Yes Status: Acute Assessment & Plan: -Creat at 1.37- baseline around 0.9 - Hold nephrotoxins. -Monitor renal/lytes daily -Received 1L fluid bolus in ED -Gentle IV fluids as tolerated, monitor for volume overload. 03/10: -Creat elevated at 1.41 -IVF contraindication with CHF 03/11: -Creat reviewed at 1.04- JARED resolved Code(s): N17.9 - ACUTE KIDNEY FAILURE, UNSPECIFIED (4) Hypokalemia Current Visit: Yes Status: Acute Assessment & Plan: -Potassium level at 3.3- replenish per protocol -Optimize with K+ > 4 and MG >2 -Tele 03/10: -Potassium level at 4.8 03/11: -Potassium at 3.8- will supplement to optimize with K>4.5 and Mg> 2 (mag level at 2.2 today) 03/12: -Potassium at 3.5- 40meq given this morning per cards- continue supplementation scheduled dosing at noon -recheck Code(s): E87.6 - HYPOKALEMIA Confusion -RN reported confusion -CT head negative -dc ambien Pleural effusion -CT demonstrates cardiomegaly, pulmonary edema, and bilateral pleural effusions, most consistent with acute decompensated HFrEF -CXR 03/11 howing cardiomegaly with worsening pulmonary edema/vascular congestion and worsening moderate bilateral mid to lower lung atelectasis/effusions. Findings again favor cardiac decompensation/CHF versus fluid overload. Superimposed pneumonia not completely excluded. -Continue on lasix drip. (5) Transaminitis Current Visit: Yes Status: Acute Assessment & Plan: -Mild elevation; monitor. -Consider hepatitis panel, RUQ US if persistent or worsening 03/11: -AST/ALT reviewed and down trending - hep ga pending -asymptomatic 03/12: -AST/ALT continue to down-trend -Hep ga neg Code(s): R74.01 - ELEVATION OF LEVELS OF LIVER TRANSAMINASE LEVELS (6) HTN (hypertension) Current Visit: Yes Status: Acute Assessment & Plan: -monitor inpatient closely while on cardizem drip 03/11 -Patient on lasix drip/antiarrythmics monitor closely Code(s): I10 - ESSENTIAL (PRIMARY) HYPERTENSION (7) Osteoarthritis Current Visit: Yes Status: Acute Assessment & Plan: -continue home regimen Code(s): M19.90 - UNSPECIFIED OSTEOARTHRITIS, UNSPECIFIED SITE (8) History of DVT (deep vein thrombosis) Current Visit: Yes Status: Acute Assessment & Plan: -On coumadin -History of 2 DVT right leg -Pharmacy doses coumadin as OP will have pharm manage while IP 03/10: -Coumadin held today due to supratherapeutic INR at 3.43 -Dose will need adjusted with amiodarone on board 03/11: -INR at 2.66 - amiodarone has been held currently - pharmacy dosing coumadin at 2mg 03/12: -INR level at 1.88- pharmacy dosing current dose is 2mg sututhsa and 3mg mowefr Code(s): Z86.718 - PERSONAL HISTORY OF OTHER VENOUS THROMBOSIS AND EMBOLISM (9) USP current use of anticoagulant Current Visit: Yes Status: Acute Assessment & Plan: -see DVT Code(s): Z79.01 - TAPER PRINTED CIRCUIT LAYOUT (CURRENT) USE OF ANTICOAGULANTS (10) Anxiety and depression Current Visit: Yes Status: Acute Assessment & Plan: -continue home meds VTE: Coumadin PPI: protonix Dispo: 2-3 days Code status: Full Code This patient required critical care services due to acute atrial fibrillation with rapid ventricular response complicated by hypotension risk, acute kidney injury, hypokalemia, and community-acquired pneumonia with concern for sepsis physiology. The patient was at high risk for imminent life- threatening deterioration from arrhythmia, hemodynamic collapse, and/or respiratory compromise. My care included continuous hemodynamic monitoring, serial interpretation of electrocardiograms, titration of intravenous diltiazem infusion, initiation and monitoring of empiric IV antibiotics, evaluation and management of acute kidney injury, electrolyte repletion, interpretation of laboratory and radiographic studies, and coordination with pharmacy for warfarin management. Total critical care time provided by me was 40 mins, exclusive of separately billable procedures and without overlap of time spent by other providers. Code(s): I48.91 - UNSPECIFIED ATRIAL FIBRILLATION Code(s): I48.91 - UNSPECIFIED ATRIAL FIBRILLATION (2) Community acquired pneumonia Current Visit: Yes Status: Acute Code(s): J18.9 - PNEUMONIA, UNSPECIFIED ORGANISM (3) JARED (acute kidney injury) Current Visit: Yes Status: Acute Code(s): N17.9 - ACUTE KIDNEY FAILURE, UNSPECIFIED (4) Hypokalemia Current Visit: Yes Status: Acute Code(s): E87.6 - HYPOKALEMIA (5) Transaminitis Current Visit: Yes Status: Acute Code(s): R74.01 - ELEVATION OF LEVELS OF LIVER TRANSAMINASE LEVELS (6) HTN (hypertension) Current Visit: Yes Status: Acute Code(s): I10 - ESSENTIAL (PRIMARY) HYPERTENSION (7) Osteoarthritis Current Visit: Yes Status: Acute Code(s): M19.90 - UNSPECIFIED OSTEOARTHRITIS, UNSPECIFIED SITE (8) History of DVT (deep vein thrombosis) Current Visit: Yes Status: Acute Code(s): Z86.718 - PERSONAL HISTORY OF OTHER VENOUS THROMBOSIS AND EMBOLISM (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 Current Visit: Yes Status: Acute Code(s): Z79.01 - TAPER PRINTED CIRCUIT LAYOUT (CURRENT) USE OF ANTICOAGULANTS (10) Anxiety and depression Current Visit: Yes Status: Acute Code(s): F41.9 - ANXIETY DISORDER, UNSPECIFIED; F32.A - DEPRESSION, UNSPECIFIED (11) Metabolic acidosis Current Visit: Yes Status: Acute Code(s): E87.20 - ACIDOSIS, UNSPECIFIED (12) Chest pain Current Visit: Yes Status: Acute Code(s): R07.9 - CHEST PAIN, UNSPECIFIED (13) Atypical atrial flutter Current Visit: Yes Status: Acute Code(s): I48.4 - ATYPICAL ATRIAL FLUTTER (14) Cardiorenal syndrome Current Visit: Yes Status: Acute Qualifiers: Heart failure presence: with heart failure Code(s): I13.10 - HYP HRT & CHR KDNY DIS W/O HRT FAIL, W STG 1-4/UNSP CHR KDNY (15) HFrEF (heart failure with reduced ejection fraction) Current Visit: Yes Status: Acute Code(s): I50.20 - UNSPECIFIED SYSTOLIC (CONGESTIVE) HEART FAILURE (16) Long QT interval Current Visit: Yes Status: Acute Code(s): R94.31 - ABNORMAL ELECTROCARDIOGRAM [ECG] [EKG] (17) Torsades de pointes Current Visit: Yes Status: Acute Code(s): I47.21 - TORSADES DE POINTES (18) Confusion Current Visit: Yes Status: Acute Code(s): R41.0 - DISORIENTATION, UNSPECIFIED (19) Pleural effusion Current Visit: Yes Status: Acute Code(s): J90 - PLEURAL EFFUSION, NOT ELSEWHERE CLASSIFIED
[2025-03-12 05:56] LABS: Hematocrit 44.7 % (34.1-44.9); Hemoglobin 13.2 g/dL (11.2-15.7); Mean Corpuscular Hemoglobin 26.6 pg (25.6-32.2); Mean Corpuscular Hgb Concent. 29.5 g/dL (32.2-35.5); Platelet Count 214 x10^3/uL (182-369); Red Blood Count 4.97 x10^6/uL (3.93-5.22); White Blood Count 12.5 x10^3/uL (3.98-10.04)
[2025-03-12 06:21] LABS: Calcium 8.1 mg/dL (8.4-10.2); Carbon Dioxide 27.0 mmol/L (22-30); Creatinine 1 0.88 mg/dL (0.52-1.04); EST GLOMERULAR FILTRATION RATE 72.0 ML/MIN; Glucose 107.0 mg/dL (74-106); Potassium 3.5 mmol/L (3.5-5.1); SGOT/AST 67.0 U/L (14-36); SGPT/ALT 132.0 U/L (0-35); Total Protein 6.1 g/dL (6.3-8.2)
[2025-03-12 07:40] LABS: INR 1.88 (0.8-3.0); PROTIME 19.7 SECONDS (9.4-12.5)
[2025-03-12] MEDS ORDERED: Klor Con ONE ×2 (08:12→23:07)
[2025-03-12] MEDS ORDERED: Lopressor 25MG Tab ONE (08:12)
[2025-03-12] MEDS: Lopressor 25MG Tab PO ONE ×2 (08:16→13:15)
[2025-03-12] MEDS: Klor Con PO ONE ×2 (08:16→23:09)
[2025-03-12] MEDS: Lanoxin 0.125MG TABLET PO SCH (09:54)
[2025-03-12] MEDS ORDERED: Lopressor 25MG Tab PO SCH (12:00)
[2025-03-12] MEDS: Lopressor 25MG Tab PO SCH (12:07)
[2025-03-12] MEDS: Coumadin 2 MG PO SCH (17:29)
[2025-03-12] MEDS: Lopressor 50 MG PO SCH (17:31)
[2025-03-12] MEDS: MELATONIN PO PRN (21:11)
--- NOTE | 2025-03-12 22:04 | PCM.NOTE ---
Date and Time: 03/12/252203 Subjective Assessment: Her breathing has continued to improve each day. OBJECTIVE: Dr. Xavier Hammond informed me last night that the senior ui ux developer from his group is not available at [facility] for the next 1.5 weeks. Spoke and updated Dr. Andrea Dill, patient's swatcher, this evening on his patient's coarse. If we need an EP sooner, he recommended Dr. Booker at [facility]. Patient's metoprolol tartrate increased to 37.5 mg at 0600 followed by increase to 50 mg q 6 hours at 1200. VR has gradually decreased to the 96-110 range with occasional increases to 120 bpm with activity. Marked improvement from the 120 - 160 bpm yesterday. WIth diuresis, her creatinine decreased this am to baseline 0.88. Weight has decreased approximatley 9 lbs since starting furosemide infusion. Exam General:: no acute distress HEENT: EOMI, JVD (1/3 way up to jaw) Cardiovascular: s1 s2, no murmurs,rubs,gallops, irregular Respiratory:: crackels (Left basilar) Abdominal: active bowel sounds x 4 Extremity Exam: edema (Bilateral 1+ pretibial edema) Neurologic: other (Groslly nonfocal) Objective Data Vital Signs: Vital Signs - 24 hr Temp Pulse Resp BP Pulse Ox 03/12/25 20:30 104 H 18 103/73 91 L 03/12/25 20:25 94 L 03/12/25 20:00 97.9 F 105 H 14 116/66 94 L 03/12/25 19:30 96 H 15 115/73 94 L 03/12/25 19:00 98 H 18 92/64 90 L 03/12/25 18:31 141 H 19 102/78 95 03/12/25 18:00 111 H 16 108/74 03/12/25 17:30 116 H 20 101/66 100 03/12/25 17:00 120 H 19 116/74 91 L 03/12/25 16:30 118 H 18 122/72 95 03/12/25 16:00 102 H 16 121/67 95 03/12/25 15:46 104 H 03/12/25 15:30 111 H 16 106/73 94 L 03/12/25 15:00 101 H 20 101/70 96 03/12/25 14:30 112 H 19 104/66 98 03/12/25 14:00 109 H 20 118/69 97 03/12/25 13:30 102 H 15 116/70 98 03/12/25 13:00 113 H 20 110/59 97 03/12/25 12:32 108 H 15 102/62 97 03/12/25 12:00 97.6 F 108 H 20 109/77 96 03/12/25 11:31 114 H 14 108/72 95 03/12/25 11:00 113 H 17 129/76 95 03/12/25 10:31 132 H 16 122/79 94 L 03/12/25 10:00 112 H 18 101/63 96 03/12/25 09:54 115 H 104/64 03/12/25 09:30 93 H 26 H 104/64 93 L 03/12/25 09:00 128 H 15 115/59 95 03/12/25 08:31 111 H 16 111/59 96 03/12/25 08:01 146 H 15 108/61 93 L 03/12/25 08:00 102 H 03/12/25 07:30 117 H 19 127/59 96 03/12/25 07:00 93 H 16 97/75 96 03/12/25 06:30 104 H 20 109/71 94 L 03/12/25 06:00 94 H 22 109/72 96 03/12/25 05:30 124 H 14 114/75 95 03/12/25 05:01 128 H 17 103/69 96 03/12/25 04:42 96.6 F 142 H 16 128/68 97 03/12/25 04:01 136 H 24 94/75 95 03/12/25 04:00 136 H 03/12/25 03:30 122 H 25 H 97/66 96 03/12/25 03:00 107 H 24 97/59 97 03/12/25 02:31 120 H 20 104/59 96 03/12/25 02:00 117 H 15 103/58 96 03/12/25 01:30 118 H 14 112/61 96 03/12/25 01:00 132 H 30 H 109/63 95 03/12/25 00:30 133 H 17 120/58 96 03/12/25 00:01 97.6 F 141 H 17 98/63 95 03/11/25 23:31 134 H 35 H 104/80 96 03/11/25 23:00 164 H 17 117/89 96 03/11/25 22:30 148 H 20 123/93 95 Pain Assessment - Last Documented Pain Intensity 3 Pain Scale Used 0-10 Pain Scale Intake and Output: Intake & Output 03/10/25 03/11/25 03/12/25 03/13/25 11:59 11:59 11:59 11:59 Intake Total 1792 3405 1440 932 Output Total 679 5870 3500 2250 Balance 6683 -9165 -0758 -5024 Weight 92.2 kg 87.9 kg 90 kg LAB: I have reviewed the Labs in [employer]. Lab Results: Lab Results-Last 24 Hours 03/12/25 03/12/25 03/12/25 Range/Units 04:29 04:29 06:55 WBC 12.5 H (3.98-10.04) x10^3/uL RBC 4.97 (3.93-5.22) x10^6/uL Hgb 13.2 (11.2-15.7) g/dL Hct 44.7 (34.1-44.9) % MCV 89.9 (79.4-94.8) fL MCH 26.6 (25.6-32.2) pg MCHC 29.5 L (32.2-35.5) g/dL RDW 14.9 H (11.7-14.4) % Plt Count 214 (182-369) x10^3/uL MPV 10.6 (9.4-12.3) fL PT 19.7 H (9.4-12.5) SECONDS INR 1.88 D (0.8-3.0) Sodium 138 (135-145) mmol/L Potassium 3.5 D (3.5-5.1) mmol/L Chloride 102 (98-107) mmol/L Carbon Dioxide 27 (22-30) mmol/L Anion Gap 11.8 (5-15) MEQ/L BUN 18 H (7-17) mg/dL Creatinine 0.88 (0.52-1.04) mg/dL Estimated GFR 72.0 ML/MIN Glucose 107 H (74-106) mg/dL Calcium 8.1 L (8.4-10.2) mg/dL Magnesium 2.1 (1.6-2.3) mg/dL Total Bilirubin 1.20 (0.2-1.3) mg/dL AST 67 H (14-36) U/L ALT 132 H (0-35) U/L Alkaline Phosphatase 97 (38-126) U/L Serum Total Protein 6.1 L (6.3-8.2) g/dL Albumin 3.5 (3.5-5.0) g/dL 03/12/25 Range/Units 18:40 WBC (3.98-10.04) x10^3/uL RBC (3.93-5.22) x10^6/uL Hgb (11.2-15.7) g/dL Hct (34.1-44.9) % MCV (79.4-94.8) fL MCH (25.6-32.2) pg MCHC (32.2-35.5) g/dL RDW (11.7-14.4) % Plt Count (182-369) x10^3/uL MPV (9.4-12.3) fL PT (9.4-12.5) SECONDS INR (0.8-3.0) Sodium (135-145) mmol/L Potassium 3.4 L (3.5-5.1) mmol/L Chloride (98-107) mmol/L Carbon Dioxide (22-30) mmol/L Anion Gap (5-15) MEQ/L BUN (7-17) mg/dL Creatinine (0.52-1.04) mg/dL Estimated GFR ML/MIN Glucose (74-106) mg/dL Calcium (8.4-10.2) mg/dL Magnesium (1.6-2.3) mg/dL Total Bilirubin (0.2-1.3) mg/dL AST (14-36) U/L ALT (0-35) U/L Alkaline Phosphatase (38-126) U/L Serum Total Protein (6.3-8.2) g/dL Albumin (3.5-5.0) g/dL Radiology Exams: Radiology Procedures Category Date Time Status CHEST 1 VIEW (PORTABLE) Stat Exams 03/11/25 18:16 Completed HEAD WITHOUT CONTRAST [CT] Stat Exams 03/11/25 18:16 Completed TTE 03/09/2025: 1. Patient is in atrial fibrillation with a rapid ventricular response throughout study. 2. Moderately dilated atria. Normal ventricular chamber sizes. 3. Severely depressed left ventricular systolic function with an estimated EF 25-30%. The basal inferior, basal inferolateral, and basal inferoseptal wall segments contract normally. Other wall segments are severely hypokinetic. 4. Unable to determine grade of diastolic dysfunction due to undelying atrial fibrillation. 5. Normal right ventricular systolic fucntion. 6. Mild aortic sclerosis without stenosis. 7. Doppler: Mild to moderate mitral regurgitation, mild tricuspid regurgitation. 8. Mildly elevated PA systolic pressure (32 mmHg). 9. Mildly elevated right atrial pressure (8 mmHg). 10. No pericardial effusion. Chest CT without contrast 03/10/2025: 1. Cardiomegaly with pulmonary edema and bilateral effusions as detailed favoring cardiac decompensation/CHF versus fluid overload. 2. Chronic findings including arteriosclerotic disease, chronic bony findings, and old granulomatous disease Tracing 1 Attestation: I have reviewed this EKG and interpreted as documented below. EKG Narrative: ECGs 03/12/2025: Atypical atrial flutter with VAVB with occasional aberrancy at 131 bpm. Long QT (QT 0.326, QTc 0.481). Anterolateral T wave inversion. 03/11/2025: Atypical atrial flutterwith VAVB at 133 bpm. RAD. Prolonged QT interval with anterior T wave inversion. 03/10/2025 at 1028: NSR at 76 bpm. RAD. Trade 108 degrees. Long QT (QT 0.548, Qtc 0.617). 03/09/2025 at 0756: Atypical atrial flutter with VAVB at 148 bpm. RAD. Trade [address] and T wave abnormalities. 10/17/2024: NSR at 65 bpm. Incomplete RBBB. Nonspecific T wave abnormality. Telemetry 03/11 - 03/12/2025: Atrial flutter with VAVB. VR decreasing with increase in metoprolol tartrate. No VT. 03/10/2025 at 1254: 10 beat run of polymorphic VT (Torsades de Pointes) at 240 bpm. 03/10/2025 at 1252: 5 beat run of VT at 200 bpm. 03/09/2025 at 1141: Atrial flutter with VAVB at 163 bpm. Multi-Disciplinary Progress Notes: Multi-Disciplinary Progress Notes 03/12/25 13:20 Pharmacy Note by Handy Bautista INR 1.88. Keep on same alternating home dose. Will watch INR tomorrow. Initialized on 03/12/25 13:20 - END OF NOTE 03/12/25 12:09 Case Management Note by Harmony Rios NO CHANGE IN DC PLANS AT THIS TIME- WILL NEED TO REASSESS NEEDS CLOSER TO TIME OF DC Initialized on 03/12/25 12:09 - END OF NOTE Assessment & Plan (1) Atypical atrial flutter Current Visit: Yes Status: Acute Assessment & Plan: Improved control of VR with increase in metoprolol form 25 mg q 8 hours to 50 mg q 6 hours. BP has tolerated this incrase in beta-magy dosage. INR therapeutic on warfarin. With metoprolol dose increased to maximal dose this afternoon, will observe rate over the next 24 hours to determine if there is adequate contol of VR with medications (metoprolol + digoxin) s need to transfer to [facility] for EP ealuation/ablation. Code(s): I48.4 - ATYPICAL ATRIAL FLUTTER (2) Torsades de pointes Current Visit: Yes Status: Acute Assessment & Plan: Secondary to amiodarone + single dose of Zofran. Only one single 11 beat bout. S/P 2 grams magnesium sulfate IV. Target potassium 4.5. Potassium supplemented throught day. Will give an additional 40 meq KCl at midnight. Code(s): I47.21 - TORSADES DE POINTES (3) HFrEF (heart failure with reduced ejection fraction) Current Visit: Yes Status: Acute Assessment & Plan: Remains mildly volume overloaded on exam this evening. Will continue furosemide infusion. Add spironolactone 25 mg daily in am. Will discontinue BID dosing of potassium when furosemide infusion is discontinued. Code(s): I50.20 - UNSPECIFIED SYSTOLIC (CONGESTIVE) HEART FAILURE (4) Cardiorenal syndrome Current Visit: Yes Status: Acute Qualifiers: Heart failure presence: with heart failure Assessment & Plan: Resolving with diuresis. Code(s): I13.10 - HYP HRT & CHR KDNY DIS W/O HRT FAIL, W STG 1-4/UNSP CHR KDNY (5) Long QT interval Current Visit: Yes Status: Acute Assessment & Plan: Secondary to amiodarone + Zofran. Both medications held after single bout of Torsades de pointes. Electrolytes being aggressively managed. QT interval gradually lessening each day. Attendant T wave chages persist. Code(s): R94.31 - ABNORMAL ELECTROCARDIOGRAM [ECG] [EKG] (6) Metabolic acidosis Current Visit: Yes Status: Acute Assessment & Plan: Resolved with resolution of JARED. Code(s): E87.20 - ACIDOSIS, UNSPECIFIED (7) Chest pain Current Visit: No Status: Acute Qualifiers: Chest pain type: other chest pain Qualified Code(s): R07.89 - Other chest pain; R07.8 - Other chest pain Assessment & Plan: Nonspecific episode 2 days prior to admission. Will need workup for CAD as an outpatient inlight of new cardiomyopathy. Dr Dill is planning a cardiac cath. Code(s): R07.9 - CHEST PAIN, UNSPECIFIED (8) Viral syndrome Current Visit: Yes Status: Acute - Encounter Encounter: The entirety of this encounter was performed via Telemedicine using audio and visual. Permisssion granted by patient. As above, had conversations with Angela Hammond and Andrea Dill. Case discussed with DEBI Randall. Grabiel Riley MD Access [facility] [phone]
[2025-03-13 04:39] LABS: Hematocrit 45.8 % (34.1-44.9); Hemoglobin 14.1 g/dL (11.2-15.7); Mean Corpuscular Hemoglobin 27.0 pg (25.6-32.2); Mean Corpuscular Hgb Concent. 30.8 g/dL (32.2-35.5); Platelet Count 245 x10^3/uL (182-369); Red Blood Count 5.23 x10^6/uL (3.93-5.22); White Blood Count 10.3 x10^3/uL (3.98-10.04)
[2025-03-13 04:54] LABS: INR 1.47 (0.8-3.0); PROTIME 15.6 SECONDS (9.4-12.5)
[2025-03-13 04:56] LABS: Calcium 8.5 mg/dL (8.4-10.2); Carbon Dioxide 32.0 mmol/L (22-30); Creatinine 1 0.81 mg/dL (0.52-1.04); EST GLOMERULAR FILTRATION RATE 79.5 ML/MIN; Glucose 89.0 mg/dL (74-106); Potassium 3.3 mmol/L (3.5-5.1); SGOT/AST 58.0 U/L (14-36); SGPT/ALT 118.0 U/L (0-35); Total Protein 6.3 g/dL (6.3-8.2)
--- NOTE | 2025-03-13 05:46 | PCM.NOTE ---
Date and Time: 03/13/25 0536 Subjective Assessment: is a 69 year old female with pmhx of atrial fibrillation on anticoagulation, hypertension, osteoarthritis, anxiety, depression, and prior DVT (right leg on coumadin) who presented to the emergency department on 03/09/25 after being referred from urgent care for atrial fibrillation with rapid ventr icular response. She reports feeling unwell for the past 45 days with nonspecific malaise, cold sweats, diarrhea, dyspnea, and nausea prompting her to seek care at [facility] earlier today. She reports > 5 diarrheal stools per day. Viral swabs obtained there were negative. However, she continued to feel poorly and an EKG performed in clinic demonstrated atrial fibrillation with rapid ventricular response, prompting transfer to the ED. She denies chest pain, dyspnea, fever, palpitations, syncope, recent falls, or missed doses of her blood thinner. She also denies calf pain, swelling, or symptoms suggestive of DVT or pulmonary embolism. On arrival, her heart rate was in the 170s, otherwise vitals were stable. EKG showed atrial fibrillation with rapid ventricular response, ventricular rate 148 bpm, QRS 93 ms, QTc 491 ms. Lab findings significant for WBC 11.1, potassium 3.3, creatinine 1.37 (baseline 0.9), AST 52, ALT 110, and BNP 5220. CXR revealed hyperinflated lungs with new hazy right infrahilar interstitial/alveolar opacities concerning for pneumonia or pneumonitis, borderline cardiomegaly, no consolidation or effusion, with background osteopenia and minimal scoliosis. No recent echocardiogram is available for comparison. She was admitted for management of atrial fibrillation with RVR and pneumonia. 03/10/25: Patient evaluated at bedside. Reports progressive dyspnea this morning with associated nausea and vomiting overnight, likely reflecting worsening volume status. CT chest notable for cardiomegaly, pulmonary edema, and bilateral pleural effusions, favoring acute decompensated heart failure over simple fluid overload. Echocardiogram demonstrates severely reduced systolic function with LVEF 2530%. Cardiology is involved; IV diuresis initiated with ongoing monito ring of response. Rate control strategy adjusted Cardizem drip discontinued given reduced EF, and metoprolol tartrate started at 25 mg PO BID. Amiodarone infusion continued per protocol, with transition to oral therapy planned this evening. Despite these interventions, patient remains in Afib with HR persistently in the 130s,despite current regimen. Will discuss with cardiology today regarding strategy for improved rate control. 03/11/25: Patient was evaluated at the bedside and reports improvement in dyspnea, currently maintained on 2 L nasal cannula. On auscultation, crackles are present in the bilateral lower lung phipps. Telemetry monitoring demonstrates atrial flutter with heart rates in the 130s. Laboratory values show a down-trending white blood cell count to 12.1, and acute kidney injury has resolved. The plan is to continue diuresis with the ongoing Lasix drip, optimize electrolytes, and monitor volume status closely. Metoprolol 25 mg every 6 hours is being administered per cardiology recommendations, in addition to digoxin 0.125 mg daily for rate control. Anticoagulation with Coumadin has been resumed at 2 mg daily, with INR monitoring. The patient does report back and shoulder pain, which will be further evaluated and managed as appropriate. 03/12/25: Overnight events -RN reported patient having bouts of confusion and increased dyspnea. CT head negative. CXR showing cardiomegaly with worsening pulmonary edema/vascular congestion and worsening moderate bilateral mid to lower lung atelectasis/effusions. Findings again favor cardiac decompensation/CHF versus fluid overload. Superimposed pneumonia not completely excluded. Patient remains on lasix drip. Patient reports she is feeling back to baseline this morning. A&O x 3. Dyspnea has improved. Discussed case with Cardiology- Metoprolol increased to 37.5mg q6h, lasix drip continued, and potassium supplementation continued for goal of >4.5 for optimization. Cardiology to discuss patient with EP cardiology for possible transfer for ablation consideration. JARED has resolved. WBC improved. 03/13/25: Metoprolol tartrate changed to metoprolol Succinate 100mg bid [id number], continue digoxin and lasix drip. WBC much improved now at 10.3. JARED has resolved. Patient reports dyspnea much improved. Now on RA. Lung sounds with fine crackles in bases on auscultation. HR now in the 100s. Denies fever,cough, sob, cp, ab dominal pain, GUERRERO, dizziness, N/V/D. - Review of Systems Constitutional: Weakness Eyes: No Symptoms Ears, Nose, & Throat: No Symptoms Respiratory: No Symptoms Cardiac: Edema (BLE +1) Abdominal/Gastrointestinal: No Symptoms Genitourinary Symptoms: No Symptoms Musculoskeletal: No Symptoms Skin: No Symptoms Neurological: No Symptoms Psychological: No Symptoms Endocrine: No Symptoms Hematologic/Lymphatic: No Symptoms Immunological/Allergic: No Symptoms Objective Exam General Appearance: no apparent distress Neurologic Exam: alert, oriented x 3, cooperative Skin Exam: normal color Neck Exam: JVD Respiratory Exam: crackles/rales Cardiovascular Exam: irregular Gastrointestinal/Abdomen Exam: soft, normal bowel sounds Extremity Exam: swelling (BLE +1) Back Exam: normal inspection Pelvic Exam: deferred Rectal Exam: deferred Objective Data Vital Signs: Vital Signs - 24 hr Temp Pulse Resp BP Pulse Ox 03/13/25 03:01 105 H 16 108/70 91 L 03/13/25 02:31 113 H 16 95/70 95 03/13/25 01:00 99 H 16 104/53 03/13/25 00:30 101 H 16 91/61 03/13/25 00:01 112 H 03/13/25 00:00 112 H 17 108/51 03/12/25 23:30 115 H 17 80/60 94 L 03/12/25 23:01 108 H 17 115/60 93 L 03/12/25 22:31 134 H 19 105/61 90 L 03/12/25 22:00 121 H 16 117/62 91 L 03/12/25 21:31 121 H 18 98/65 89 L 03/12/25 21:00 106 H 15 117/72 95 03/12/25 20:30 104 H 18 103/73 91 L 03/12/25 20:25 94 L 03/12/25 20:00 97.9 F 105 H 14 116/66 94 L 03/12/25 19:30 96 H 15 115/73 94 L 03/12/25 19:00 98 H 18 92/64 90 L 03/12/25 18:31 141 H 19 102/78 95 03/12/25 18:00 111 H 16 108/74 03/12/25 17:30 116 H 20 101/66 100 03/12/25 17:00 120 H 19 116/74 91 L 03/12/25 16:30 118 H 18 122/72 95 03/12/25 16:00 102 H 16 121/67 95 03/12/25 15:46 104 H 03/12/25 15:30 111 H 16 106/73 94 L 03/12/25 15:00 101 H 20 101/70 96 03/12/25 14:30 112 H 19 104/66 98 03/12/25 14:00 109 H 20 118/69 97 03/12/25 13:30 102 H 15 116/70 98 03/12/25 13:00 113 H 20 110/59 97 03/12/25 12:32 108 H 15 102/62 97 03/12/25 12:00 97.6 F 108 H 20 109/77 96 03/12/25 11:31 114 H 14 108/72 95 03/12/25 11:00 113 H 17 129/76 95 03/12/25 10:31 132 H 16 122/79 94 L 03/12/25 10:00 112 H 18 101/63 96 03/12/25 09:54 115 H 104/64 03/12/25 09:30 93 H 26 H 104/64 93 L 03/12/25 09:00 128 H 15 115/59 95 03/12/25 08:31 111 H 16 111/59 96 03/12/25 08:01 146 H 15 108/61 93 L 03/12/25 08:00 102 H 03/12/25 07:30 117 H 19 127/59 96 03/12/25 07:00 93 H 16 97/75 96 03/12/25 06:30 104 H 20 109/71 94 L 03/12/25 06:00 94 H 22 109/72 96 Pain Assessment - Last Documented Pain Intensity 0 Pain Scale Used 0-10 Pain Scale Intake and Output: Intake & Output 03/10/25 03/11/25 03/12/25 03/13/25 11:59 11:59 11:59 11:59 Intake Total 1792 3405 1440 992 Output Total 733 5770 3500 2950 Balance 3836 -3548 -2886 -7621 Weight 92.2 kg 87.9 kg 90 kg Lab Results: Lab Results-Last 24 Hours 03/12/25 03/12/25 03/12/25 Range/Units 04:29 04:29 06:55 WBC 12.5 H (3.98-10.04) x10^3/uL RBC 4.97 (3.93-5.22) x10^6/uL Hgb 13.2 (11.2-15.7) g/dL Hct 44.7 (34.1-44.9) % MCV 89.9 (79.4-94.8) fL MCH 26.6 (25.6-32.2) pg MCHC 29.5 L (32.2-35.5) g/dL RDW 14.9 H (11.7-14.4) % Plt Count 214 (182-369) x10^3/uL MPV 10.6 (9.4-12.3) fL PT 19.7 H (9.4-12.5) SECONDS INR 1.88 D (0.8-3.0) Sodium 138 (135-145) mmol/L Potassium 3.5 D (3.5-5.1) mmol/L Chloride 102 (98-107) mmol/L Carbon Dioxide 27 (22-30) mmol/L Anion Gap 11.8 (5-15) MEQ/L BUN 18 H (7-17) mg/dL Creatinine 0.88 (0.52-1.04) mg/dL Estimated GFR 72.0 ML/MIN Glucose 107 H (74-106) mg/dL Calcium 8.1 L (8.4-10.2) mg/dL Magnesium 2.1 (1.6-2.3) mg/dL Total Bilirubin 1.20 (0.2-1.3) mg/dL AST 67 H (14-36) U/L ALT 132 H (0-35) U/L Alkaline Phosphatase 97 (38-126) U/L Serum Total Protein 6.1 L (6.3-8.2) g/dL Albumin 3.5 (3.5-5.0) g/dL 03/12/25 03/13/25 03/13/25 Range/Units 18:40 04:12 04:12 WBC 10.3 H (3.98-10.04) x10^3/uL RBC 5.23 H (3.93-5.22) x10^6/uL Hgb 14.1 (11.2-15.7) g/dL Hct 45.8 H (34.1-44.9) % MCV 87.6 (79.4-94.8) fL MCH 27.0 (25.6-32.2) pg MCHC 30.8 L (32.2-35.5) g/dL RDW 14.6 H (11.7-14.4) % Plt Count 245 (182-369) x10^3/uL MPV 10.1 (9.4-12.3) fL PT (9.4-12.5) SECONDS INR (0.8-3.0) Sodium 137 (135-145) mmol/L Potassium 3.4 L 3.3 L (3.5-5.1) mmol/L Chloride 100 (98-107) mmol/L Carbon Dioxide 32 H (22-30) mmol/L Anion Gap 8.6 (5-15) MEQ/L BUN 16 (7-17) mg/dL Creatinine 0.81 (0.52-1.04) mg/dL Estimated GFR 79.5 ML/MIN Glucose 89 (74-106) mg/dL Calcium 8.5 (8.4-10.2) mg/dL Magnesium 2.1 (1.6-2.3) mg/dL Total Bilirubin 0.90 (0.2-1.3) mg/dL AST 58 H (14-36) U/L ALT 118 H (0-35) U/L Alkaline Phosphatase 102 (38-126) U/L Serum Total Protein 6.3 (6.3-8.2) g/dL Albumin 3.6 (3.5-5.0) g/dL 03/13/25 Range/Units 04:12 WBC (3.98-10.04) x10^3/uL RBC (3.93-5.22) x10^6/uL Hgb (11.2-15.7) g/dL Hct (34.1-44.9) % MCV (79.4-94.8) fL MCH (25.6-32.2) pg MCHC (32.2-35.5) g/dL RDW (11.7-14.4) % Plt Count (182-369) x10^3/uL MPV (9.4-12.3) fL PT 15.6 H (9.4-12.5) SECONDS INR 1.47 (0.8-3.0) Sodium (135-145) mmol/L Potassium (3.5-5.1) mmol/L Chloride (98-107) mmol/L Carbon Dioxide (22-30) mmol/L Anion Gap (5-15) MEQ/L BUN (7-17) mg/dL Creatinine (0.52-1.04) mg/dL Estimated GFR ML/MIN Glucose (74-106) mg/dL Calcium (8.4-10.2) mg/dL Magnesium (1.6-2.3) mg/dL Total Bilirubin (0.2-1.3) mg/dL AST (14-36) U/L ALT (0-35) U/L Alkaline Phosphatase (38-126) U/L Serum Total Protein (6.3-8.2) g/dL Albumin (3.5-5.0) g/dL Radiology Exams: Radiology Procedures Category Date Time Status CHEST 1 VIEW (PORTABLE) Stat Exams 03/11/25 18:16 Completed HEAD WITHOUT CONTRAST [CT] Stat Exams 03/11/25 18:16 Completed Medications: Medications Generic Name Dose Route Start Last Admin Trade Name Freq PRN Reason Stop Dose Admin Acetaminophen 650 mg 03/09/25 11:33 03/12/25 10:05 Acetaminophen 325 Mg Tablet PO 04/08/25 11:32 650 mg Q4H PRN PRN Administration PAIN, FEVER, HEADACHE Hydrocodone Bitart/Acetaminophen 1 tab 03/09/25 12:20 03/12/25 01:18 Hydrocodone/Apap 5/325 1 Tab Tablet PO 03/14/25 12:19 1 tab BIDPRN PRN Administration PAIN Allopurinol 300 mg 03/10/25 10:00 03/12/25 09:54 Allopurinol 300 Mg Tablet PO 04/09/25 09:59 300 mg DAILY SADE Administration Digoxin 0.125 mg 03/12/25 10:00 03/12/25 09:54 Digoxin 0.125 Mg Tablet PO 04/11/25 09:59 0.125 mg DAILY SADE Administration Gabapentin 600 mg 03/09/25 22:00 03/12/25 21:10 Gabapentin 300 Mg Capsule PO 04/08/25 21:59 600 mg BID SADE Administration Furosemide 100 mg/ Sodium 100 mls @ 10 mls/hr 03/10/25 15:00 03/13/25 05:20 Chloride IV 04/09/25 14:59 10 mls/hr .Q10H SADE 10 mls/hr Administration Cefepime HCl 2 g/ Sodium 100 mls @ 200 mls/hr 03/10/25 22:00 03/12/25 21:11 Chloride IV 04/09/25 21:59 200 mls/hr Q12HT SADE Administration Melatonin 3 mg 03/11/25 18:06 03/12/25 21:11 Melatonin 3 Mg Tablet PO 04/10/25 18:05 3 mg HS PRN PRN Administration INSOMNIA Metoprolol Tartrate 50 mg 03/12/25 18:00 03/13/25 05:21 Metoprolol Tartrate 50 Mg Tablet PO 04/11/25 17:59 50 mg Q6H SADE Administration Nitroglycerin 0.4 mg 03/09/25 12:20 Nitroglycerin 0.4 Mg Tablet Bottle SL 04/08/25 12:19 Q5MIN PRN MR X 3 PRN CHEST PAIN Pantoprazole Sodium 40 mg 03/09/25 13:00 03/12/25 09:55 Protonix (Pantoprazole) 40 Mg Tablet PO 04/08/25 12:59 40 mg DAILY SADE Administration Potassium Chloride 20 meq 03/11/25 08:31 03/12/25 21:11 Potassium Chloride Tab 10 Meq Tab PO 04/10/25 08:30 20 meq BID SADE Administration Potassium Chloride 40 meq 03/13/25 00:00 03/12/25 23:09 Potassium Chloride Tab 10 Meq Tab PO 03/13/25 00:01 40 meq ONCE ONE Administration Simvastatin 10 mg 03/09/25 22:00 03/12/25 21:11 Simvastatin 10 Mg Tablet PO 04/08/25 21:59 10 mg HS SADE Administration Spironolactone 25 mg 03/13/25 10:00 Spironolactone 25 Mg Tablet PO 04/12/25 09:59 DAILY SADE Venlafaxine HCl 150 mg 03/10/25 10:00 03/12/25 09:55 Venlafaxine Hcl 75 Mg Extended Release Capsule PO 04/09/25 09:59 150 mg QAM SADE Administration Warfarin Sodium 3 mg 03/11/25 18:00 03/11/25 18:24 Warfarin Sodium 3 Mg Tablet PO 04/10/25 17:59 3 mg MOWEFR SADE Administration Warfarin Sodium 2 mg 03/12/25 18:00 03/12/25 17:29 Warfarin Sodium 2 Mg Tablet PO 04/11/25 17:59 2 mg SUTUTHSA SADE Administration Zolpidem Tartrate 10 mg 03/09/25 22:00 03/10/25 21:10 Zolpidem Tartrate 10 Mg Tablet PO 04/08/25 21:59 10 mg HS SADE Administration Discontinued Medications Generic Name Dose Route Start Last Admin Trade Name Freq PRN Reason Stop Dose Admin Albuterol Sulfate 2 puff 03/09/25 15:52 Albuterol Common Canister Inhaler IH 04/08/25 15:51 Q4H PRN PRN SHORTNESS OF BREATH/WHEEZING Amiodarone HCl 200 mg 03/10/25 17:00 03/10/25 19:55 Amiodarone Hcl 200 Mg Tab PO 04/09/25 16:59 Not Given TIDWM SADE Aspirin 324 mg 03/09/25 08:15 03/09/25 08:25 Aspirin 81 Mg Tab.Chew PO 03/09/25 08:16 324 mg STAT ONE Administration Aspirin Confirm 03/09/25 08:22 Aspirin 81 Mg Tab.Chew Administered 03/09/25 08:23 Dose 324 mg .ROUTE .STK-MED ONE Azithromycin 500 mg 03/09/25 09:36 03/09/25 10:17 Azithromycin 250 Mg Tablet PO 03/09/25 09:37 500 mg STAT ONE Administration Azithromycin Confirm 03/09/25 10:16 Azithromycin 250 Mg Tablet Administered 03/09/25 10:17 Dose 500 mg .ROUTE .STK-MED ONE Digoxin 0.5 mg 03/10/25 17:28 03/10/25 18:06 Digoxin 0.5 Mg/2 Ml Injection IV 03/10/25 17:29 0.5 mg STAT ONE Administration Digoxin 0.25 mg 03/10/25 23:30 03/11/25 00:09 Digoxin 0.125 Mg Tablet PO 04/09/25 23:29 0.25 mg DAILY SADE Administration Digoxin 0.125 mg 03/11/25 05:30 03/11/25 05:43 Digoxin 0.125 Mg Tablet PO 04/10/25 05:29 0.125 mg DAILY SADE Administration Digoxin 0.25 mg 03/11/25 15:43 03/11/25 15:47 Digoxin 0.5 Mg/2 Ml Injection IV 03/11/25 15:44 0.25 mg STAT ONE Administration Digoxin Confirm 03/11/25 15:46 Digoxin 0.5 Mg/2 Ml Injection Administered 03/11/25 15:47 Dose 0.5 mg .ROUTE .STK-MED ONE Diltiazem HCl 10 mg 03/09/25 08:15 03/09/25 08:25 Diltiazem Hcl Iv 5 Mg/Ml Vial IV 03/09/25 08:16 10 mg STAT ONE Administration Diltiazem HCl Confirm 03/09/25 08:23 Diltiazem Hcl Iv 5 Mg/Ml Vial Administered 03/09/25 08:24 Dose 50 mg IV .STK-MED ONE Doxycycline Hyclate 100 mg 03/09/25 17:00 03/10/25 08:30 Doxycycline Hyclate 100 Mg Tablet PO 04/08/25 16:59 100 mg BIDWMEALS SADE Administration Furosemide 20 mg 03/10/25 02:05 03/10/25 02:15 Furosemide 20 Mg/Vial IV 03/10/25 02:06 20 mg ONCE ONE Administration Furosemide 80 mg 03/10/25 10:15 03/10/25 10:36 Furosemide 100 Mg/10 Ml Vial IV 03/10/25 10:16 80 mg STAT ONE Administration Furosemide 80 mg 03/10/25 18:00 Furosemide 100 Mg/10 Ml Vial IV 04/09/25 17:59 0800,1800 SADE Sodium Chloride 1,000 mls @ 999 mls/hr 03/09/25 08:15 03/09/25 09:34 Sodium Chloride 0.9% 1000 Ml IV 03/09/25 09:15 Infused .Q1H1M STA Infusion Sodium Chloride Confirm 03/09/25 08:22 Sodium Chloride 0.9% 1000 Ml Administered 03/09/25 08:23 Dose 1,000 mls @ ud .ROUTE .STK-MED ONE Ceftriaxone Sodium 2 gm in 100 mls @ 200 mls/hr 03/09/25 09:36 03/09/25 10:32 Rocephin 2 Gm/100 Ml Nacl IV 03/09/25 10:05 Infused STAT ONE Infusion Ceftriaxone Sodium Confirm 03/09/25 09:40 Rocephin 2 Gm/100 Ml Nacl Administered 03/09/25 09:41 Dose 2 gm in 100 mls @ ud IV .STK-MED ONE Diltiazem HCl 100 mls @ 5 mls/hr 03/09/25 09:57 03/10/25 09:48 Cardizem Drip 100 Mg/100 Ml D5w IV 04/08/25 09:56 12.5 mg/hr .Q20H PRN 12.5 mls/hr HEART RATE/ A-FIB Titration Protocol 5 MG/HR Ceftriaxone Sodium 1 gm in 100 mls @ 200 mls/hr 03/10/25 10:00 03/10/25 10:36 Rocephin 1 Gm / 100 Ml Nacl IV 04/09/25 09:59 200 mls/hr Q24H10 SADE Administration Azithromycin 500 mg/ Sodium 250 mls @ 250 mls/hr 03/10/25 10:00 Chloride IV 04/09/25 09:59 Q24H10 SADE Potassium Chloride/Sodium Chloride 1,000 mls @ 50 mls/hr 03/09/25 12:00 03/10/25 19:54 Sodium Chloride 0.9% W/ 20 Meq Kcl/Liter IV 04/08/25 11:59 Not Given .Q20H SADE Amiodarone HCl 150 mg/ 103 mls @ 618 mls/hr 03/09/25 15:00 03/09/25 14:55 Dextrose IV 03/09/25 15:09 618 mls/hr STAT ONE Administration Protocol Amiodarone HCl/Dextrose 360 mg in 200 mls @ 33 mls/hr 03/09/25 15:00 03/10/25 19:54 Nexterone 360 Mg/200 Ml Bag IV 04/08/25 14:59 Not Given .Q6H4M SADE Protocol Magnesium Sulfate/Water 2 gm in 50 mls @ 100 mls/hr 03/10/25 15:29 03/10/25 15:40 Magnesium Sulf 2 G/50 Ml Bag IV 03/10/25 15:58 100 mls/hr ONCE ONE Administration Lorazepam 0.25 mg 03/11/25 16:37 03/11/25 17:26 Lorazepam 2 Mg/1 Ml 2 Mg Vial IV 03/11/25 16:38 Not Given STAT ONE Lorazepam 0.25 mg 03/11/25 17:00 03/11/25 17:27 Lorazepam 20 Mg/10 Ml Mdv IV 03/11/25 17:01 Not Given STAT ONE Metoprolol Tartrate 25 mg 03/09/25 14:30 03/09/25 15:00 Metoprolol Tartrate 25 Mg Tab PO 03/09/25 14:31 25 mg ONCE ONE Administration Metoprolol Tartrate 25 mg 03/10/25 13:00 Metoprolol Tartrate 25 Mg Tab PO 04/09/25 12:59 1300 SADE Metoprolol Tartrate 25 mg 03/10/25 05:00 Metoprolol Tartrate 25 Mg Tab PO 04/09/25 04:59 QAM SADE Metoprolol Tartrate 25 mg 03/10/25 05:00 Metoprolol Tartrate 25 Mg Tab PO 04/09/25 04:59 0500 SADE Metoprolol Tartrate 25 mg 03/09/25 23:15 03/10/25 04:47 Metoprolol Tartrate 25 Mg Tab PO 04/08/25 23:14 25 mg Q6H SADE Administration Metoprolol Tartrate 25 mg 03/10/25 12:00 Metoprolol Tartrate 25 Mg Tab PO 04/09/25 11:59 Q6HT SADE Metoprolol Tartrate 25 mg 03/10/25 22:00 Metoprolol Tartrate 25 Mg Tab PO 04/09/25 21:59 BID SADE Metoprolol Tartrate 25 mg 03/10/25 14:30 03/11/25 07:39 Metoprolol Tartrate 25 Mg Tab PO 04/09/25 14:29 25 mg Q8HT SADE Administration Metoprolol Tartrate 25 mg 03/11/25 12:00 03/12/25 05:06 Metoprolol Tartrate 25 Mg Tab PO 04/10/25 11:59 25 mg Q6HT SADE Administration Metoprolol Tartrate 25 mg 03/11/25 15:44 03/11/25 15:48 Metoprolol Tartrate 25 Mg Tab PO 03/11/25 15:45 25 mg STAT ONE Administration Metoprolol Tartrate 12.5 mg 03/12/25 08:03 03/12/25 08:16 Metoprolol Tartrate 25 Mg Tab PO 03/12/25 08:04 12.5 mg STAT ONE Administration Metoprolol Tartrate 25 mg 03/12/25 12:00 Metoprolol Tartrate 25 Mg Tab PO 04/11/25 11:59 Q6HT SADE Metoprolol Tartrate 37.5 mg 03/12/25 12:00 03/12/25 12:07 Metoprolol Tartrate 25 Mg Tab PO 04/11/25 11:59 37.5 mg Q6HT SADE Administration Metoprolol Tartrate Confirm 03/11/25 15:46 Metoprolol Tartrate 25 Mg Tab Administered 03/11/25 15:47 Dose 25 mg .ROUTE .STK-MED ONE Metoprolol Tartrate Confirm 03/12/25 08:12 Metoprolol Tartrate 25 Mg Tab Administered 03/12/25 08:13 Dose 25 mg .ROUTE .STK-MED ONE Metoprolol Tartrate 12.5 mg 03/12/25 12:53 03/12/25 13:15 Metoprolol Tartrate 25 Mg Tab PO 03/12/25 12:54 12.5 mg STAT ONE Administration Non-Formulary Medication 1 each 03/09/25 11:57 03/09/25 13:43 Pharmacy Dosing Request 03/09/25 11:58 Not Given STAT ONE Non-Formulary Medication 1 each 03/10/25 16:05 03/10/25 19:56 Pharmacy Dosing Request 03/10/25 16:06 Not Given STAT ONE Ondansetron HCl 4 mg 03/09/25 11:33 03/10/25 09:47 Ondansetron Hcl 4 Mg/2 Ml Vial IV 04/08/25 11:32 4 mg Q6H PRN PRN Administration NAUSEA/VOMITING Potassium Chloride 20 meq 03/09/25 12:00 03/09/25 17:43 Potassium Chloride Tab 10 Meq Tab PO 03/09/25 18:01 20 meq Q2H SADE Administration Potassium Chloride 40 meq 03/10/25 17:45 03/10/25 21:10 Potassium Chloride Tab 10 Meq Tab PO 03/10/25 21:46 40 meq Q4H SADE Administration Potassium Chloride 40 meq 03/11/25 00:00 03/11/25 00:10 Potassium Chloride Tab 10 Meq Tab PO 03/11/25 00:01 40 meq ONCE ONE Administration Potassium Chloride 40 meq 03/11/25 06:00 03/11/25 05:48 Potassium Chloride Tab 10 Meq Tab PO 03/11/25 06:01 40 meq ONCE ONE Administration Potassium Chloride 40 meq 03/12/25 07:57 03/12/25 08:16 Potassium Chloride Tab 10 Meq Tab PO 03/12/25 07:58 40 meq STAT ONE Administration Potassium Chloride Confirm 03/12/25 08:12 Potassium Chloride Tab 10 Meq Tab Administered 03/12/25 08:13 Dose 40 meq .ROUTE .STK-MED ONE Sodium Bicarbonate 650 mg 03/10/25 10:00 03/10/25 09:46 Sodium Bicarbonate 650 Mg Tablet PO 04/09/25 09:59 650 mg BID [facility] Administration Warfarin Sodium 2 mg 03/10/25 18:00 Warfarin Sodium 2 Mg Tablet PO 04/09/25 17:59 SUTUTHSA [facility] Warfarin Sodium 3 mg 03/09/25 18:00 03/09/25 17:43 Warfarin Sodium 3 Mg Tablet PO 04/08/25 17:59 3 mg MOWEFR [facility] Administration Multi-Disciplinary Progress Notes: Multi-Disciplinary Progress Notes 03/12/25 13:20 Pharmacy Note by Handy Bautista INR 1.88. Keep on same alternating home dose. Will watch INR tomorrow. Initialized on 03/12/25 13:20 - END OF NOTE 03/12/25 12:09 Case Management Note by Harmony Rios NO CHANGE IN DC PLANS AT THIS TIME- WILL NEED TO REASSESS NEEDS CLOSER TO TIME OF DC Initialized on 03/12/25 12:09 - END OF NOTE Assessment/Plan (1) Atrial fibrillation with RVR Current Visit: Yes Status: Acute Assessment & Plan: -Continue diltiazem infusion for rate control; transition to oral as tolerated. -Maintain telemetry monitoring and strict I&O. -Continue therapeutic anticoagulation (patient reports adherence)-managed coumadin OP with [facility] pharmacy coumadin clinic -Trend electrolytes; replete potassium >4.0 and magnesium >2.0 to reduce arrhythmia risk - replenish potassium - MG WNL at 2.0 -Obtain echocardiogram to evaluate cardiac function and structure given elevated BNP and no recent echo. -Cardiology consulted 03/10: -Cardiology consulted and discussed case with Dr. Bryant- agree with plan amiodarone drip started and cardizem dcd- metoprolol tartrate 25mg BID 03/11: -Echo Severely depressed left ventricular systolic function with an estimated EF 25-30%. -Converted to NS 03/10 in the a.m. but later back in atrial flutter -Cardiology documentation reviewed, continue metoprolol 25mg q6h. Discontinue Amiodarone and zofran. Digoxin 0.125mg daily added ; patient given magnesium infusion 03/10/25 and will repeat magnesium infusion if paatient has a recurrence of Torsades after first infusion. Target magneium at least 2.0. Target potassium 4.5 in the short term until QT corrects. Can reinstitute oral amiodarone load after QT corrects. 03/12: -Cardiology note reviewed plan to continue to increase metoprolol as tolerated. He has discussed with Dr. Vishnu Hammond for an EP discussion. Patient will need an atrial flutter ablation vs His Bundle ablation and pacemaker placement. -Continue digoxin 0.125mg daily, Metoprolol 25mg q6h, and lasix drip per cards recommendations -03/11 I&O balance -2.5L 03/12: -Discussed case with cardiology- agree with plan to increase metoprolol to 37.5mg q6h, continue lasix drip, continue digoxin 0.125, continue potassium supplementation for goal >4.5 Mg >2 (2.1 today) -consider transfer - cardiology to speak with EP cardiology at [facility] today 03/13: -Cardiology notes reviewed -metoprolol tartrate changed from 50mg q6h to metoprolol succinate 100mg po bid in addition to digoxin 0.125 and continuation of lasix drip -add spironolactone -continue to optimize electrolytes for goal >4.5 Mg >2 -EKG from 03/11/2025 reviewed: Atypical atrial flutterwith VAVB at 133 bpm. RAD. Prolonged QT interval with anterior T wave inversion. Torsades de pointes -03/10/2025 at 1254: 10 beat run of polymorphic VT (Torsades de Pointes) at 240 bpm per cardio read -Magnesium sulfate given will repeat magnesium infusion if paatient has a recurrence of Torsades after first infusion. Target magneium at least 2.0. Target potassium 4.5 in the short term until QT corrects. Can reinstitute oral amiodarone load after QT corrects. CHF with reduced EF - -CT chest demonstrates cardiomegaly, pulmonary edema, and bilateral pleural effusions, most consistent with acute decompensated HFrEF. -Echocardiogram reveals severely reduced systolic function (EF 2530%). -Diuresis started -80mg lasix given x 1 dose- cardiology to decide on further plan for diuresis 03/11: -Lasix drip initiated at 10mg/hr per cardiology on 03/10 03/12: -CXR from 03/11 showing cardiomegaly with worsening pulmonary edema/vascular congestion and worsening moderate bilateral mid to lower lung atelectasis/effusions. Findings again favor cardiac decompensation/CHF versus fluid overload. Superimposed pneumonia not completely excluded. Patient remains on lasix drip. -Cardiology following agree with plan Code(s): I48.91 - UNSPECIFIED ATRIAL FIBRILLATION Long QT Interval -Secondary to amiodarone + Zofran. Will discontinue both agents now as above. Will consider restarting amiodarone after QT corrects Chest Pain -PT reported to cardiology -reviewed note and agree with plan -Trops x 3 negative -Echo reveals severely reduced systolic function (EF 2530%). 03/11: -trop repeat negative (2) Community acquired pneumonia Current Visit: Yes Status: Acute Assessment & Plan: -Continue ceftriaxone + azithromycin -Monitor fever curve, WBC, oxygenation, symptoms. -Encourage pulmonary hygiene, early mobilization. -Repeat CXR only if clinical status worsens -Supplemental oxygen to maintain spo2 > 92% currently on RA 03/11: -ceftriaxone/azith changed to cefepime 03/10 as WBC had went up -WBC reviewed and now at 12.1 down from 15.8 03/12: -WBC reviewed at 12.5 -Continue cefepime 03/13 -Continue cefepime -WBC improved at 10.3 -Continue oxygen with goal spo2>92% Code(s): J18.9 - PNEUMONIA, UNSPECIFIED ORGANISM Metabolic acidosis -Most likely secondary to nausea/vomiting and diarrhea 03/12: -Resolved co2 level at 27, GAP at 11.8 (3) JARED (acute kidney injury) Current Visit: Yes Status: Acute Assessment & Plan: -Creat at 1.37- baseline around 0.9 - Hold nephrotoxins. -Monitor renal/lytes daily -Received 1L fluid bolus in ED -Gentle IV fluids as tolerated, monitor for volume overload. 03/10: -Creat elevated at 1.41 -IVF contraindication with CHF 03/11: -Creat reviewed at 1.04- JARED resolved Code(s): N17.9 - ACUTE KIDNEY FAILURE, UNSPECIFIED (4) Hypokalemia Current Visit: Yes Status: Acute Assessment & Plan: -Potassium level at 3.3- replenish per protocol -Optimize with K+ > 4 and MG >2 -Tele 03/10: -Potassium level at 4.8 03/11: -Potassium at 3.8- will supplement to optimize with K>4.5 and Mg> 2 (mag level at 2.2 today) 03/12: -Potassium at 3.5- 40meq given this morning per cards- continue supplementation scheduled dosing at noon -recheck 03/13: -Potassium at 3.3- will replenish per protocol Code(s): E87.6 - HYPOKALEMIA Confusion -RN reported confusion -CT head negative -dc ambien Pleural effusion -CT demonstrates cardiomegaly, pulmonary edema, and bilateral pleural effusions, most consistent with acute decompensated HFrEF -CXR 03/11 howing cardiomegaly with worsening pulmonary edema/vascular congestion and worsening moderate bilateral mid to lower lung atelectasis/effusions. Findings again favor cardiac decompensation/CHF versus fluid overload. Superimposed pneumonia not completely excluded. -Continue on lasix drip. (5) Transaminitis Current Visit: Yes Status: Acute Assessment & Plan: -Mild elevation; monitor. -Consider hepatitis panel, RUQ US if persistent or worsening 03/11: -AST/ALT reviewed and down trending - hep ga pending -asymptomatic 03/12: -AST/ALT continue to down-trend -Hep ga neg Code(s): R74.01 - ELEVATION OF LEVELS OF LIVER TRANSAMINASE LEVELS (6) HTN (hypertension) Current Visit: Yes Status: Acute Assessment & Plan: -monitor inpatient closely while on cardizem drip 03/11 -Patient on lasix drip/antiarrythmics monitor closely Code(s): I10 - ESSENTIAL (PRIMARY) HYPERTENSION (7) Osteoarthritis Current Visit: Yes Status: Acute Assessment & Plan: -continue home regimen Code(s): M19.90 - UNSPECIFIED OSTEOARTHRITIS, UNSPECIFIED SITE (8) History of DVT (deep vein thrombosis) Current Visit: Yes Status: Acute Assessment & Plan: -On coumadin -History of 2 DVT right leg -Pharmacy doses coumadin as OP will have pharm manage while IP 03/10: -Coumadin held today due to supratherapeutic INR at 3.43 -Dose will need adjusted with amiodarone on board 03/11: -INR at 2.66 - amiodarone has been held currently - pharmacy dosing coumadin at 2mg 03/12: -INR level at 1.88- pharmacy dosing current dose is 2mg sututhsa and 3mg mowefr 03/13: INR at 1.47 -pharmacy dosing Code(s): Z86.718 - PERSONAL HISTORY OF OTHER VENOUS THROMBOSIS AND EMBOLISM (9) FPC current use of anticoagulant Current Visit: Yes Status: Acute Assessment & Plan: -see DVT Code(s): Z79.01 - TURPENTINER (CURRENT) USE OF ANTICOAGULANTS (10) Anxiety and depression Current Visit: Yes Status: Acute Assessment & Plan: -continue home meds VTE: Coumadin PPI: protonix Dispo: 2-3 days Code status: Full Code This patient required critical care services due to acute atrial fibrillation with rapid ventricular response complicated by hypotension risk, acute kidney injury, hypokalemia, and community-acquired pneumonia with concern for sepsis physiology. The patient was at high risk for imminent life- threatening deterioration from arrhythmia, hemodynamic collapse, and/or respiratory compromise. My care included continuous hemodynamic monitoring, serial interpretation of electrocardiograms, titration of intravenous diltiazem infusion, initiation and monitoring of empiric IV antibiotics, evaluation and management of acute kidney injury, electrolyte repletion, interpretation of laboratory and radiographic studies, and coordination with pharmacy for warfarin management. Total critical care time provided by me was 40 mins, exclusive of separately billable procedures and without overlap of time spent by other providers. Code(s): I48.91 - UNSPECIFIED ATRIAL FIBRILLATION (2) Community acquired pneumonia Current Visit: Yes Status: Acute Code(s): J18.9 - PNEUMONIA, UNSPECIFIED ORGANISM (3) JARED (acute kidney injury) Current Visit: Yes Status: Acute Code(s): N17.9 - ACUTE KIDNEY FAILURE, UNSPECIFIED (4) Hypokalemia Current Visit: Yes Status: Acute Code(s): E87.6 - HYPOKALEMIA (5) Transaminitis Current Visit: Yes Status: Acute Code(s): R74.01 - ELEVATION OF LEVELS OF LIVER TRANSAMINASE LEVELS (6) HTN (hypertension) Current Visit: Yes Status: Acute Code(s): I10 - ESSENTIAL (PRIMARY) HYPERTENSION (7) Osteoarthritis Current Visit: Yes Status: Acute Code(s): M19.90 - UNSPECIFIED OSTEOARTHRITIS, UNSPECIFIED SITE (8) History of DVT (deep vein thrombosis) Current Visit: Yes Status: Acute Code(s): Z86.718 - PERSONAL HISTORY OF OTHER VENOUS THROMBOSIS AND EMBOLISM (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 Current Visit: Yes Status: Acute Code(s): Z79.01 - LONG-TERM (CURRENT) USE OF ANTICOAGULANTS (10) Anxiety and depression Current Visit: Yes Status: Acute Code(s): F41.9 - ANXIETY DISORDER, UNSPECIFIED; F32.A - DEPRESSION, UNSPECIFIED (11) Metabolic acidosis Current Visit: Yes Status: Acute Code(s): E87.20 - ACIDOSIS, UNSPECIFIED (12) Chest pain Current Visit: Yes Status: Acute Code(s): R07.9 - CHEST PAIN, UNSPECIFIED (13) Atypical atrial flutter Current Visit: Yes Status: Acute Code(s): I48.4 - ATYPICAL ATRIAL FLUTTER (14) Cardiorenal syndrome Current Visit: Yes Status: Acute Qualifiers: Heart failure presence: with heart failure Code(s): I13.10 - HYP HRT & CHR KDNY DIS W/O HRT FAIL, W STG 1-4/UNSP CHR KDNY (15) HFrEF (heart failure with reduced ejection fraction) Current Visit: Yes Status: Acute Code(s): I50.20 - UNSPECIFIED SYSTOLIC (CONGESTIVE) HEART FAILURE (16) Long QT interval Current Visit: Yes Status: Acute Code(s): R94.31 - ABNORMAL ELECTROCARDIOGRAM [ECG] [EKG] (17) Torsades de pointes Current Visit: Yes Status: Acute Code(s): I47.21 - TORSADES DE POINTES (18) Confusion Current Visit: Yes Status: Acute Code(s): R41.0 - DISORIENTATION, UNSPECIFIED (19) Pleural effusion Current Visit: Yes Status: Acute Code(s): J90 - PLEURAL EFFUSION, NOT ELSEWHERE CLASSIFIED
[2025-03-13] MEDS: Klor Con PO ONE ×2 (07:44→11:55)
[2025-03-13] MEDS: Toprol Xl 50 MG PO SCH (09:28)
[2025-03-13] MEDS: Aldactone 25 MG PO SCH (09:29)
--- NOTE | 2025-03-13 14:12 | PCM.NOTE ---
Date and Time: 03/13/25 1332 Subjective Assessment: [place] weak today. Did not feel like getting out of bed. Denies shortness of breath. Exam General:: no acute distress HEENT: EOMI, No JVD Cardiovascular: s1 s2, no murmurs,rubs,gallops, tachycardia, irregular Respiratory:: crackels (Left basilar crackles.) O2 Delivery: Room Air Abdominal: active bowel sounds x 4 Extremity Exam: edema (1+ in only the right inner ankle) Neurologic: other (Grosslly non-focal.) Objective Data Vital Signs: Vital Signs - 24 hr Temp Pulse Resp BP Pulse Ox 03/13/25 13:00 110 H 21 111/65 03/13/25 12:30 115 H 18 113/67 03/13/25 12:00 118 H 19 03/13/25 11:30 122 H 15 110/75 03/13/25 11:01 98 H 15 85/60 03/13/25 10:30 97 H 13 110/64 03/13/25 10:00 92 H 19 107/71 03/13/25 09:30 102 H 19 85/62 03/13/25 09:29 99 H 03/13/25 09:00 97 H 19 90/61 03/13/25 08:49 106 H 14 100/59 03/13/25 08:32 124 H 19 03/13/25 08:15 97 03/13/25 08:00 128 H 24 106/67 03/13/25 07:30 110 H 18 101/49 03/13/25 07:00 113 H 20 108/54 03/13/25 06:30 117 H 21 95/57 03/13/25 06:00 91 H 22 97/68 03/13/25 05:30 94 H 26 H 109/72 03/13/25 05:20 93 H 13 115/59 03/13/25 05:06 99 H 10 L 93/66 03/13/25 05:05 113 H 18 03/13/25 04:44 98 H 16 03/13/25 04:00 94 H 109/61 03/13/25 03:31 97.6 F 101 H 16 100/56 93 L 03/13/25 03:01 105 H 16 108/70 91 L 03/13/25 02:31 113 H 16 95/70 95 03/13/25 01:00 99 H 16 104/53 03/13/25 00:30 101 H 16 91/61 03/13/25 00:01 112 H 03/13/25 00:00 112 H 17 108/51 03/12/25 23:30 115 H 17 80/60 94 L 03/12/25 23:01 108 H 17 115/60 93 L 03/12/25 22:31 134 H 19 105/61 90 L 03/12/25 22:00 121 H 16 117/62 91 L 03/12/25 21:31 121 H 18 98/65 89 L 03/12/25 21:00 106 H 15 117/72 95 03/12/25 20:30 104 H 18 103/73 91 L 03/12/25 20:25 94 L 03/12/25 20:00 97.9 F 105 H 14 116/66 94 L 03/12/25 19:30 96 H 15 115/73 94 L 03/12/25 19:00 98 H 18 92/64 90 L 03/12/25 18:31 141 H 19 102/78 95 03/12/25 18:00 111 H 16 108/74 03/12/25 17:30 116 H 20 101/66 100 03/12/25 17:00 120 H 19 116/74 91 L 03/12/25 16:30 118 H 18 122/72 95 03/12/25 16:00 102 H 16 121/67 95 03/12/25 15:46 104 H 03/12/25 15:30 111 H 16 106/73 94 L 03/12/25 15:00 101 H 20 101/70 96 03/12/25 14:30 112 H 19 104/66 98 03/12/25 14:00 109 H 20 118/69 97 Pain Assessment - Last Documented Pain Intensity 0 Pain Scale Used 0-10 Pain Scale Intake and Output: Intake & Output 03/11/25 03/12/25 03/13/25 03/14/25 11:59 11:59 11:59 11:59 Intake Total 3405 1440 2352 200 Output Total 6200 3500 4050 Balance -3660 -5384 -9734 200 Weight 87.9 kg 90 kg 88.2 kg LAB: I have reviewed the Labs in [facility]. Trends: Creatinine 1.37 to 0.81 INR 2.04, 3.43, 2.66, 1.88, 1.47. Lab Results: Lab Results-Last 24 Hours 03/12/25 03/13/25 03/13/25 Range/Units 18:40 04:12 04:12 WBC 10.3 H (3.98-10.04) x10^3/uL RBC 5.23 H (3.93-5.22) x10^6/uL Hgb 14.1 (11.2-15.7) g/dL Hct 45.8 H (34.1-44.9) % MCV 87.6 (79.4-94.8) fL MCH 27.0 (25.6-32.2) pg MCHC 30.8 L (32.2-35.5) g/dL RDW 14.6 H (11.7-14.4) % Plt Count 245 (182-369) x10^3/uL MPV 10.1 (9.4-12.3) fL PT (9.4-12.5) SECONDS INR (0.8-3.0) Sodium 137 (135-145) mmol/L Potassium 3.4 L 3.3 L (3.5-5.1) mmol/L Chloride 100 (98-107) mmol/L Carbon Dioxide 32 H (22-30) mmol/L Anion Gap 8.6 (5-15) MEQ/L BUN 16 (7-17) mg/dL Creatinine 0.81 (0.52-1.04) mg/dL Estimated GFR 79.5 ML/MIN Glucose 89 (74-106) mg/dL Calcium 8.5 (8.4-10.2) mg/dL Magnesium 2.1 (1.6-2.3) mg/dL Total Bilirubin 0.90 (0.2-1.3) mg/dL AST 58 H (14-36) U/L ALT 118 H (0-35) U/L Alkaline Phosphatase 102 (38-126) U/L Serum Total Protein 6.3 (6.3-8.2) g/dL Albumin 3.6 (3.5-5.0) g/dL 03/13/25 03/13/25 Range/Units 04:12 10:25 WBC (3.98-10.04) x10^3/uL RBC (3.93-5.22) x10^6/uL Hgb (11.2-15.7) g/dL Hct (34.1-44.9) % MCV (79.4-94.8) fL MCH (25.6-32.2) pg MCHC (32.2-35.5) g/dL RDW (11.7-14.4) % Plt Count (182-369) x10^3/uL MPV (9.4-12.3) fL PT 15.6 H (9.4-12.5) SECONDS INR 1.47 (0.8-3.0) Sodium (135-145) mmol/L Potassium 3.7 (3.5-5.1) mmol/L Chloride (98-107) mmol/L Carbon Dioxide (22-30) mmol/L Anion Gap (5-15) MEQ/L BUN (7-17) mg/dL Creatinine (0.52-1.04) mg/dL Estimated GFR ML/MIN Glucose (74-106) mg/dL Calcium (8.4-10.2) mg/dL Magnesium (1.6-2.3) mg/dL Total Bilirubin (0.2-1.3) mg/dL AST (14-36) U/L ALT (0-35) U/L Alkaline Phosphatase (38-126) U/L Serum Total Protein (6.3-8.2) g/dL Albumin (3.5-5.0) g/dL Radiology Exams: Radiology Procedures Category Date Time Status CHEST 1 VIEW (PORTABLE) Stat Exams 03/11/25 18:16 Completed HEAD WITHOUT CONTRAST [CT] Stat Exams 03/11/25 18:16 Completed TTE 03/09/2025: 1. Patient is in atrial fibrillation with a rapid ventricular response throughout study. 2. Moderately dilated atria. Normal ventricular chamber sizes. 3. Severely depressed left ventricular systolic function with an estimated EF 25-30%. The basal inferior, basal inferolateral, and basal inferoseptal wall segments contract normally. Other wall segments are severely hypokinetic. 4. Unable to determine grade of diastolic dysfunction due to undelying atrial fibrillation. 5. Normal right ventricular systolic fucntion. 6. Mild aortic sclerosis without stenosis. 7. Doppler: Mild to moderate mitral regurgitation, mild tricuspid regurgitation. 8. Mildly elevated PA systolic pressure (32 mmHg). 9. Mildly elevated right atrial pressure (8 mmHg). 10. No pericardial effusion. Chest CT without contrast 03/10/2025: 1. Cardiomegaly with pulmonary edema and bilateral effusions as detailed favoring cardiac decompensation/CHF versus fluid overload. 2. Chronic findings including arteriosclerotic disease, chronic bony findings, and old granulomatous disease Tracing 1 Attestation: I have reviewed this EKG and interpreted as documented below. EKG Narrative: ECGs 03/13/2025: While resting in bed during encounter - Atypical atrial flutter with VAVB at 120 - 160 bpm. 03/12/2025: Atypical atrial flutter with VAVB with occasional aberrancy at 131 bpm. Long QT (QT 0.326, QTc 0.481). Anterolateral T wave inversion. 03/11/2025: Atypical atrial flutterwith VAVB at 133 bpm. RAD. Prolonged QT interval with anterior T wave inversion. 03/10/2025 at 1028: NSR at 76 bpm. RAD. [place] 108 degrees. Long QT (QT 0.548, Qtc 0.617). 03/09/2025 at 0756: Atypical atrial flutter with VAVB at 148 bpm. RAD. [place] [address] and T wave abnormalities. 10/17/2024: NSR at 65 bpm. Incomplete RBBB. Nonspecific T wave abnormality. Telemetry 03/11 - 03/12/2025: Atrial flutter with VAVB. VR decreasing with increase in metoprolol tartrate. No VT. 03/10/2025 at 1254: 10 beat run of polymorphic VT (Torsades de Pointes) at 240 bpm. 03/10/2025 at 1252: 5 beat run of VT at 200 bpm. 03/09/2025 at 1141: Atrial flutter with VAVB at 163 bpm. Multi-Disciplinary Progress Notes: Multi-Disciplinary Progress Notes 03/13/25 11:16 Case Management Note by Amy Alfaro Addendum entered by Harmony Rios 03/13/25 12:07: [facility] HAS ACCEPTED Original Note: S/W PATIENT AND SHE IS AGREEABLE TO SOME HHC AT [place]. REFERRAL SENT TO [facility]. THEY WILL NEED NOTIFED AT [place] AT [phone]. THEY WILL NEED FAXED THE [place] INSTRUCTION, DC MED LIST AND DC SUMMARY (IF AVAILABLE) TO [phone]. Initialized on 03/13/25 11:16 - END OF NOTE Assessment & Plan (1) Atypical atrial flutter Current Visit: Yes Status: Acute Assessment & Plan: VR not controlled on maximal metoprolol dose + digoxin. Metoprolol changed from metoprolol tartrate 50 mg q 6 hours to metoprolol succinate 100 mg BID. Continue digoxin 0.125 mg daily. Check digoxin level tomorrow am. Will attempt to transfer patient to [facility] in [place] for EP consultation with Dr. Magnus Booker (per request of patient's primary tool rental technician, Dr. Andrea Dill in [place]) for consideration of His Bundle ablation + Pacer (vs ICD). Also opinion on an atrial flutter ablation (PVI) instead. Code(s): I48.4 - ATYPICAL ATRIAL FLUTTER (2) Torsades de pointes Current Visit: Yes Status: Acute Assessment & Plan: Single 11 beat run on 03/10 after amiodarone initiated 03/09 and a single dose of Zofran give 3 hours before episode. Both meds discontinued immediately, 2 gram magnesium sulfate IV given, and aggressive potassium supplementaton given with a target potassium of 4.5. No recurrences. Code(s): I47.21 - TORSADES DE POINTES (3) HFrEF (heart failure with reduced ejection fraction) Current Visit: Yes Status: Acute Assessment & Plan: Now compensated. Will discontinue furosemide infusion now and start torsemide 50 mg BID tomorrow. Spironolactone 25 mg started today. Consider adding Entresto over the next 1-2 days. After supplementing her potassium today and having furosemide infusion stopped, would prefer to to dose potassium chloride as needed and discontinuing BID schedule. Code(s): I50.20 - UNSPECIFIED SYSTOLIC (CONGESTIVE) HEART FAILURE (4) Cardiorenal syndrome Current Visit: Yes Status: Acute Qualifiers: Heart failure presence: with heart failure Assessment & Plan: Resolved with diuresis. Code(s): I13.10 - HYP HRT & CHR KDNY DIS W/O HRT FAIL, W STG 1-4/UNSP CHR KDNY (5) Long QT interval Current Visit: Yes Status: Acute Assessment & Plan: As above, secondary to amiodarone (only given 24 hr infusion) + single dose of Zofran leading to a QTc of 617 msec. Interventions as above. QTc has decreased significantly though remained prolonged with persistent anterolateral T wave inversion yesterday. Repeat ECG to be performed today when VR decreases. Code(s): R94.31 - ABNORMAL ELECTROCARDIOGRAM [ECG] [EKG] (6) Metabolic acidosis Current Visit: Yes Status: Acute Assessment & Plan: Resolved with resolution of JARED. Code(s): E87.20 - ACIDOSIS, UNSPECIFIED (7) Chest pain Current Visit: No Status: Acute Qualifiers: Chest pain type: other chest pain Qualified Code(s): R07.89 - Other chest pain; R07.8 - Other chest pain Assessment & Plan: Single episode 2 days DOCK OPERATOR not typical for angina. She will need a cardiac cath to evaluate cause of cardiomyopathy. A tachycardia induced cardiomyopathy is likely cause if other etiologies are excluded. She is asymptomatic from her RVR. It is of unclear duration. Code(s): R07.9 - CHEST PAIN, UNSPECIFIED (8) Viral syndrome Current Visit: Yes Status: Acute Assessment & Plan: Reason why see saw PCP and found to be in a rapid atrial flutter leading to hospitalization. - Encounter Encounter: The entirety of this encounter was performed via Telemedicine using audio and visual. Permission granted by patient. Case discussed with Jaylyn Woods NP. Spoke with Dr. Gaines, tool rental technician at [facility], who accepted patient for transfer. He is aware of desire for EP consultation with Dr. Magnus Booker. Grabiel Riley MD [facility] [phone]
[2025-03-13 14:23] LABS: Calcium 9.1 mg/dL (8.4-10.2); Carbon Dioxide 32.0 mmol/L (22-30); Creatinine 1 1.03 mg/dL (0.52-1.04); EST GLOMERULAR FILTRATION RATE 59.6 ML/MIN; Glucose 131.0 mg/dL (74-106); Potassium 4.4 mmol/L (3.5-5.1)
[2025-03-13] MEDS: ENOXAPARIN SODIUM SQ SCH (15:47)
--- NOTE | 2025-03-13 17:36 | PCM.DS ---
Discharge Summary Date of Admission: 03/09/25 13:22 Date of Discharge: 03/13/25 Admitting Physician: STU PALACIOS MD Consults: Consults on Case 03/09/25 11:39 Consult Cardiology ROUTINE 03/09/25 13:42 Case Management SDOH DC Needs Assessment ROUTINE Primary Care Provider: [facility] Allergies Allergies Horse/Equine Containing Products Allergy (Intermediate, Verified 12/17/21 08:14) Hives Iodinated Contrast Media [Iodinated Contrast Media - Oral and] Allergy (Intermediate, Verified 12/17/21 08:14) Swelling tetanus and diphtheria toxoids Allergy (Intermediate, Verified 12/17/21 08:14) Nausea and Vomiting Hospital Summary - Hospital Course Hospital Course: Ms. Johnson is a 69-year-old female with past medical history significant for atrial fibrillation on chronic warfarin therapy, hypertension, osteoarthritis, anxiety, depression, and prior right lower extremity DVT who presented after referral from urgent care for atrial fibrillation with rapid ventricular response. She described four to five days of progressive malaise, cold sweats, diarrhea with multiple daily stools, nausea, and increasing shortness of breath. Viral swabs at urgent care were negative, but EKG demonstrated atrial fibrillation with RVR, prompting ED transfer. She denied chest pain, syncope, missed anticoagulant doses, calf pain, or swelling. On arrival, her heart rate was in the 170s with otherwise stable hemodynamics. Initial EKG showed atrial fibrillation with ventricular rate 148 bpm, QRS 93 ms, and QTc 491 ms. Laboratory studies were notable for leukocytosis at 11.1, potassium 3.3, creatinine 1.37 (baseline ~0.9), mild transaminitis (AST 52, ALT 110), and markedly elevated BNP of 5220. Chest X-ray revealed hyperinflated lungs with new hazy right infrahilar opacities suspicious for pneumonia or pneumonitis, borderline cardiomegaly, and no effusion or consolidation. Her course was complicated by acute decompensated heart failure. CT chest demonstrated cardiomegaly, pulmonary edema, and bilateral pleural effusions. Echocardiogram confirmed severely reduced systolic function with LVEF 2530%. Cardiology was consulted and recommended discontinuing diltiazem due to poor systolic function, initiating IV amiodarone and IV diuresis, and starting metoprolol tartrate. Despite transient conversion to sinus rhythm, she reverted to atrial flutter with persistent rapid ventricular response. She later experienced a 10-beat run of polymorphic ventricular tachycardia consistent with torsades de pointes shortly after amiodarone infusion and Zofran administration. Both agents were discontinued, IV magnesium was administered, and electrolyte targets were set at potassium >4.5 and magnesium >2.0. Despite escalation of therapy with metoprolol and digoxin, she remained in atypical atrial flutter with heart rates ranging from [id number] bpm. Serial troponins were negative. Repeat chest imaging demonstrated progressive pulmonary edema, vascular congestion, and bilateral effusions, with superimposed pneumonia not excluded. She has been treated for pneumonia with ceftriaxone/azithromycin initially and then transitioned to Cefepime after leukocytosis and symptoms worsened. She improved symptomatically with continued diuresis and aggressive electrolyte management, though potassium remained difficult to maintain. Acute kidney injury resolved with diuresis, and her creatinine returned to baseline. Transaminitis has trended down and hepatitis panel was negative. INR has fluctuated while on amiodarone and diuresis; pharmacy has been managing warfarin dosing. Cardiology has continued to titrate rate-control therapy, ultimately transitioning her to metoprolol succinate 100 mg BID, continuing digoxin 0.125 mg daily, and adding spironolactone. Lasix drip has been discontinued with transition planned to torsemide 50 mg BID. Consideration is being given to initiation of Entresto once electrolytes stabilize. Cardiology recommends advanced electrophysiology evaluation for atrial flutter ablation versus His bundle ablation with pacemaker placement, given refractory atypical atrial flutter, runs of torsades, and new severe LV dysfunction. Patient has been accepted to [facility] in [place] pending bed availability. I spent 45 minutes [id number] with the patient on the day of discharge performing discharge exam, discussing hospital stay and discharge instructions with patient and caregivers, preparation of discharge records, prescriptions & referral forms and addressing any questions/concerns the patient had as documented above. - Vitals & Intake/Output Vital Signs: Vital Signs Temperature 97.6 F 03/13/25 03:31 Pulse Rate 148 H 03/13/25 15:49 Respiratory Rate 16 03/13/25 15:31 Blood Pressure 127/74 03/13/25 15:31 O2 Sat by Pulse Oximetry 96 03/13/25 16:58 Intake & Output: Intake & Output 03/11/25 03/12/25 03/13/25 03/14/25 11:59 11:59 11:59 11:59 Intake Total 4552 7440 2353 450 Output Total 6596 3503 4050 Balance -2087 -6725 -2015 450 Weight 87.9 kg 90 kg 88.2 kg - Lab Result Diagrams: 03/13/25 04:12 03/13/25 14:05 Lab Results-Last 24 Hrs: Lab Results-Last 24 Hours 03/12/25 03/13/25 03/13/25 Range/Units 18:40 04:12 04:12 WBC 10.3 H (3.98-10.04) x10^3/uL RBC 5.23 H (3.93-5.22) x10^6/uL Hgb 14.1 (11.2-15.7) g/dL Hct 45.8 H (34.1-44.9) % MCV 87.6 (79.4-94.8) fL MCH 27.0 (25.6-32.2) pg MCHC 30.8 L (32.2-35.5) g/dL RDW 14.6 H (11.7-14.4) % Plt Count 245 (182-369) x10^3/uL MPV 10.1 (9.4-12.3) fL PT (9.4-12.5) SECONDS INR (0.8-3.0) Sodium 137 (135-145) mmol/L Potassium 3.4 L 3.3 L (3.5-5.1) mmol/L Chloride 100 (98-107) mmol/L Carbon Dioxide 32 H (22-30) mmol/L Anion Gap 8.6 (5-15) MEQ/L BUN 16 (7-17) mg/dL Creatinine 0.81 (0.52-1.04) mg/dL Estimated GFR 79.5 ML/MIN Glucose 89 (74-106) mg/dL Calcium 8.5 (8.4-10.2) mg/dL Magnesium 2.1 (1.6-2.3) mg/dL Total Bilirubin 0.90 (0.2-1.3) mg/dL AST 58 H (14-36) U/L ALT 118 H (0-35) U/L Alkaline Phosphatase 102 (38-126) U/L Serum Total Protein 6.3 (6.3-8.2) g/dL Albumin 3.6 (3.5-5.0) g/dL 03/13/25 03/13/25 03/13/25 Range/Units 04:12 10:25 14:05 WBC (3.98-10.04) x10^3/uL RBC (3.93-5.22) x10^6/uL Hgb (11.2-15.7) g/dL Hct (34.1-44.9) % MCV (79.4-94.8) fL MCH (25.6-32.2) pg MCHC (32.2-35.5) g/dL RDW (11.7-14.4) % Plt Count (182-369) x10^3/uL MPV (9.4-12.3) fL PT 15.6 H (9.4-12.5) SECONDS INR 1.47 (0.8-3.0) Sodium 138 (135-145) mmol/L Potassium 3.7 4.4 (3.5-5.1) mmol/L Chloride 100 (98-107) mmol/L Carbon Dioxide 32 H (22-30) mmol/L Anion Gap 11.0 (5-15) MEQ/L BUN 19 H (7-17) mg/dL Creatinine 1.03 (0.52-1.04) mg/dL Estimated GFR 59.6 ML/MIN Glucose 131 H (74-106) mg/dL Calcium 9.1 (8.4-10.2) mg/dL Magnesium (1.6-2.3) mg/dL Total Bilirubin (0.2-1.3) mg/dL AST (14-36) U/L ALT (0-35) U/L Alkaline Phosphatase (38-126) U/L Serum Total Protein (6.3-8.2) g/dL Albumin (3.5-5.0) g/dL Micro Results-Entire Visit: Microbiology 03/09/25 07:31 Salmonella/Shigella Screen - Final Stool Stool Culture Result 1 - Final Escherichia coli Shiga Toxins EIA - Final Ova and Parasite Concentrate Exam - Final Ova and Parasite Result 1 - Final Giardia lamblia (PCR) - Final Cryptosporidium Antigen - Final - Radiology Exams Ordered Rad Exams-Entire Visit: Radiology Procedures Category Date Time Status CHEST 1 VIEW (PORTABLE) Stat Exams 03/11/25 18:16 Completed HEAD WITHOUT CONTRAST [CT] Stat Exams 03/11/25 18:16 Completed - Procedures and Test Procedures and Tests throughout Hospitalization: Therapy Orders & Screens 03/09/25 10:00 Respiratory Therapy Consult ONCE Comment: Reason For Exam: 03/09/25 13:42 ST Screen per Nursing Assess ONCE Comment: Protocol Order Physician Instructions: Greater than [address] Admission Screening Reason For Exam: Triggered on Admission Diagnosis: atrial fib RVR/pneumonia CVA/Dysphagia/Aphasia: No Cognitive Deficits: No Dehydration/Nutrition Deficit: No Reflux: No Oral-Motor Difficulties: No Pneumonia: Yes Halfway Resident: No Total Points: 5 03/09/25 15:48 Respiratory Therapy Assessment DAILY Comment: Diagnosis: atrial fib RVR/pneumonia 03/10/25 00:06 Oxygen NASAL CANNULA 3 lpm Comment: Diagnosis: atrial fib RVR/pneumonia 03/10/25 00:49 EKG STAT Comment: Diagnosis: atrial fib RVR/pneumonia 03/10/25 10:16 EKG ROUTINE Comment: CONVERTED TO SINUS Diagnosis: atrial fib RVR/pneumonia 03/11/25 08:00 EKG ROUTINE Comment: Diagnosis: ATYPICAL ATRIAL FLUTTER, CHEST PAIN 03/11/25 09:16 EKG STAT Comment: Diagnosis: ATYPICAL ATRIAL FLUTTER, CHEST PAIN 03/12/25 06:00 EKG ROUTINE Comment: Diagnosis: ATYPICAL ATRIAL FLUTTER, CHEST PAIN 03/13/25 09:20 Incentive Spirometry ROUTINE Comment: Diagnosis: ATYPICAL ATRIAL FLUTTER, CHEST PAIN 03/13/25 14:40 EKG ROUTINE Comment: Please perform when HR near 100-110 bpm. Diagnosis: ATYPICAL ATRIAL FLUTTER Discharge Exam General Appearance: no apparent distress Neurologic Exam: alert, oriented x 3, cooperative Eye Exam: PERRL Ears, Nose, Throat Exam: normal ENT inspection Neck Exam: normal inspection Respiratory Exam: crackles/rales (Left lower lung) Cardiovascular Exam: tachycardia, irregular Gastrointestinal/Abdomen Exam: soft, normal bowel sounds Pelvic Exam: deferred Rectal Exam: deferred Back Exam: normal inspection Extremity Exam: swelling (+1 BLE) Skin Exam: normal color Final Diagnosis/Problem List - Final Discharge Diagnosis/Problem (1) Atrial fibrillation with RVR Current Visit: Yes Status: Acute Assessment & Plan: Persistent atrial flutter/fibrillation with ventricular response [id number] bpm despite maximal tolerated medical therapy. Prior amiodarone discontinued due to torsades/QT prolongation. Anticoagulated with warfarin, managed by pharmacy; INR subtherapeutic at 1.47 on transfer -Coumadin on hold for possible ablation and therapeutic lovenox initiated Continue metoprolol succinate 100 mg BID. Continue digoxin 0.125 mg daily; check serum digoxin level. Continue telemetry monitoring. Maintain electrolytes (K > 4.5, Mg > 2.0). Transfer for EP consultation at [facility] with Dr. Magnus Booker for consideration of atrial flutter ablation vs His bundle ablation and pacemaker. Code(s): I48.91 - UNSPECIFIED ATRIAL FIBRILLATION (2) Community acquired pneumonia Current Visit: Yes Status: Acute Assessment & Plan: CXR: right infrahilar opacity; difficult to distinguish edema from infection. WBC peaked at 15.8, now improved to 10.3. Treated with ceftriaxone/azithromycin, escalated to cefepime. Continue cefepime until clinical stability achieved. Monitor fever curve, WBC trend, and oxygenation. Pulmonary hygiene and early mobilization. Code(s): J18.9 - PNEUMONIA, UNSPECIFIED ORGANISM (3) JARED (acute kidney injury) Current Visit: Yes Status: Acute Assessment & Plan: Admission creatinine 1.37 (baseline ~0.9). Improved with diuresis and now at baseline. Monitor renal function daily during diuresis. Avoid nephrotoxic agents. Code(s): N17.9 - ACUTE KIDNEY FAILURE, UNSPECIFIED (4) Hypokalemia Current Visit: Yes Status: Acute Assessment & Plan: Potassium fluctuated between 3.33.8 despite supplementation. Attributed to aggressive diuresis and need for higher target in arrhythmia context. Continue scheduled potassium supplementation, with additional repletion as needed. Target K > 4.5 and Mg > 2.0. Daily labs and close electrolyte monitoring. Code(s): E87.6 - HYPOKALEMIA (5) Transaminitis Current Visit: Yes Status: Acute Assessment & Plan: AST/ALT peaked at 52/110, now down-trending. Hepatitis panel negative. Continue monitoring LFTs. No intervention unless values worsen. Code(s): R74.01 - ELEVATION OF LEVELS OF LIVER TRANSAMINASE LEVELS (6) HTN (hypertension) Current Visit: Yes Status: Acute Assessment & Plan: Historically managed outpatient; inpatient course complicated by arrhythmia and diuresis. Continue rate-controlling agents and GDMT for HFrEF as above. Monitor BP trends with current regimen. Code(s): I10 - ESSENTIAL (PRIMARY) HYPERTENSION (7) Osteoarthritis Current Visit: Yes Status: Acute Code(s): M19.90 - UNSPECIFIED OSTEOARTHRITIS, UNSPECIFIED SITE (8) History of DVT (deep vein thrombosis) Current Visit: Yes Status: Acute Assessment & Plan: Two prior right leg DVTs, on chronic warfarin. INR subtherapeutic at transfer. Warfarin-Transition to enoxaparin bridge if ablation planned. Code(s): Z86.718 - PERSONAL HISTORY OF OTHER VENOUS THROMBOSIS AND EMBOLISM (9) FDC current use of anticoagulant Current Visit: Yes Status: Acute Assessment & Plan: see above Code(s): Z79.01 - HALFWAY (CURRENT) USE OF ANTICOAGULANTS (10) Anxiety and depression Current Visit: Yes Status: Acute Assessment & Plan: continue home meds Code(s): F41.9 - ANXIETY DISORDER, UNSPECIFIED; F32.A - DEPRESSION, UNSPECIFIED (11) Metabolic acidosis Current Visit: Yes Status: Acute Assessment & Plan: Now resolved (CO2 27, anion gap 11.8). Continue to monitor renal function and electrolytes. Ensure adequate hydration while balancing CHF status. Code(s): E87.20 - ACIDOSIS, UNSPECIFIED (12) Chest pain Current Visit: Yes Status: Acute Assessment & Plan: Reported prior to admission, not typical for angina. Troponins negative x3. Echocardiogram showed severe LV systolic dysfunction. Suspected tachycardia-induced cardiomyopathy versus ischemic contribution. No ongoing chest pain. Recommend cardiac catheterization at higher-level facility to evaluate ischemic vs tachycardia-induced cardiomyopathy. Continue anticoagulation and GDMT for HFrEF. Code(s): R07.9 - CHEST PAIN, UNSPECIFIED (13) Atypical atrial flutter Current Visit: Yes Status: Acute Assessment & Plan: see afib above Code(s): I48.4 - ATYPICAL ATRIAL FLUTTER (14) Cardiorenal syndrome Current Visit: Yes Status: Acute Assessment & Plan: see jared above Code(s): I13.10 - HYP HRT & CHR KDNY DIS W/O HRT FAIL, W STG 1-4/UNSP CHR KDNY (15) HFrEF (heart failure with reduced ejection fraction) Current Visit: Yes Status: Acute Assessment & Plan: CT chest: cardiomegaly, pulmonary edema, bilateral pleural effusions. Echocardiogram: severely reduced LV systolic function. Improved after IV diuresis, now stable on room air. Transition from IV Lasix to oral torsemide 50 mg BID. Continue spironolactone 25 mg daily. Consider initiation of Entresto once potassium and renal function stable. Monitor weights, I&O, renal function, and electrolytes. Code(s): I50.20 - UNSPECIFIED SYSTOLIC (CONGESTIVE) HEART FAILURE (16) Long QT interval Current Visit: Yes Status: Acute Code(s): R94.31 - ABNORMAL ELECTROCARDIOGRAM [ECG] [EKG] (17) Torsades de pointes Current Visit: Yes Status: Acute Assessment & Plan: Single 10-beat run after amiodarone infusion and Zofran dose. Managed with discontinuation of both agents, IV magnesium sulfate, and aggressive potassium repletion. No recurrence. Avoid QT-prolonging agents. Maintain K > 4.5 and Mg > 2.0. Continue telemetry monitoring Code(s): I47.21 - TORSADES DE POINTES (18) Confusion Current Visit: Yes Status: Acute Assessment & Plan: Noted during CHF decompensation and after Ambien use. CT head negative; Ambien discontinued. Avoid sedative-hypnotics. Monitor mental status Code(s): R41.0 - DISORIENTATION, UNSPECIFIED (19) Pleural effusion Current Visit: Yes Status: Acute Assessment & Plan: see chf Code(s): J90 - PLEURAL EFFUSION, NOT ELSEWHERE CLASSIFIED - Discharge Discharge Date: 03/13/25 Disposition: DC TO OTHER HOSP Condition: Stable Prescriptions: New Spironolactone 25 mg [Aldactone 25 MG] 25 mg PO DAILY tablet Torsemide 20 mg [Demadex 20 mg] 50 mg PO BID DIURETIC tablet Enoxaparin Sodium [Enoxaparin Sodium] 90 mg SQ Q12HT Digoxin 0.125 mg Tablet [Lanoxin 0.125MG TABLET] 0.125 mg PO DAILY tablet Cefepime HCl 2 gm [Maxipime 2 GM] 2 g IV Q12HT Melatonin 3 mg PO HS PRN PRN tablet PRN Reason: Insomnia PANTOPRAZOLE 40 mg Tablet [Protonix 40MG Tablet] 40 mg PO DAILY tablet Metoprolol Succinate 50 mg [Toprol Xl 50 MG] 100 mg PO BID tablet Acetaminophen 325 mg [Tylenol 325 mg] 650 mg PO Q4H PRN PRN tablet PRN Reason: Pain, Fever, Headache Continue Hydrocodone/Acetaminophen [Mckittrick 5-325 Tablet] 1 tab PO BIDPRN PRN PRN Reason: Pain Gabapentin 600 mg PO BID Atorvastatin Calcium 40 mg PO HS Nitroglycerin 0.4 mg Tablet [Nitrostat 0.4 MG Tablet] 0.4 mg SL Q5MIN PRN MR X 3 PRN #1 bottle PRN Reason: Chest Pain Allopurinol 300 mg [Zyloprim 300 mg] 300 mg PO DAILY Venlafaxine HCl [Venlafaxine HCl ER] 150 mg PO QAM Discontinued Zolpidem Tartrate [Ambien] 10 mg PO HS Furosemide 80 mg [Lasix 80 mg] 80 mg PO QAM Metoprolol Tartrate 25 mg [Lopressor 25MG Tab] 25 mg PO QAM Hydroxyzine HCl 25 mg [Atarax 25 mg] 1 tab PO BIDPRN PRN PRN Reason: Anxiety Metoprolol Tartrate 25 mg [Lopressor 25MG Tab] 25 mg PO 1300 Potassium Chloride Tab* [Klor Con] 20 meq PO 1300 Potassium Chloride Tab* [Klor Con] 40 meq PO QAM Warfarin Sodium 2 mg PO SUTUTHSA Warfarin Sodium 3 mg PO MOWEFR Furosemide 40 mg PO 1300 Additional Instructions: [facility] HAS BEEN SET UP FOR YOU. THEY WILL CONTACT YOU TO ARRANGE A TIME TO COME SEE YOU. THEIR PHONE # IS [phone]. Follow up with: KASSIE SHEPHERD [ACTIVE STAFF, FAMILY PRACTICE] - 03/23/25 1:15 pm [facility] [Primary Care Provider, UNKNOWN] ROSE WALTER [CONSULTING PHYSICIAN, CARDIOLOGY] - 04/06/25 1:00 pm
[2025-03-13 22:22] VITALS: O2SAT 93
[2025-03-13 23:07] VITALS: BP 113/81; PULSE 108; RESP 17; TEMP 98.8
[2025-03-14] MEDS ORDERED: DEMADEX 20 MG PO SCH (08:00)
== END 2025-03-13 23:18 | DRG 308 ==
LOC: ED 08:05 → ICU 11:23 → OBSVTOIN 13:22
PROVIDERS: ADMIT Internal Medicine; ATTEND Internal Medicine
PROC: 05HB33Z Insertion of Infusion Device into Right Basilic Vein, Percutaneous Approach (ICD-10-PCS; principal; 2025-03-09)
DX: I48.20 Chronic atrial fibrillation, unspecified (principal); J18.9 Pneumonia, unspecified organism; N17.9 Acute kidney failure, unspecified; E87.20 Acidosis, unspecified; I13.0 Hypertensive heart and chronic kidney disease with heart failure and stage 1 through stage 4 chronic kidney disease, or unspecified chronic kidney disease; J90 Pleural effusion, not elsewhere classified; E87.6 Hypokalemia; R74.01 Elevation of levels of liver transaminase levels; R07.89 Other chest pain; E78.5 Hyperlipidemia, unspecified; M19.90 Unspecified osteoarthritis, unspecified site; F41.9 Anxiety disorder, unspecified; I48.4 Atypical atrial flutter; N18.9 Chronic kidney disease, unspecified; I50.9 Heart failure, unspecified; R94.31 Abnormal electrocardiogram [ECG] [EKG]; I47.21 Torsades de pointes; R41.0 Disorientation, unspecified; R60.0 Localized edema; Z79.899 Other long term (current) drug therapy; Z79.01 Long term (current) use of anticoagulants; Z86.718 Personal history of other venous thrombosis and embolism
CPT/HCPCS: 36410; 36415; 36600; 70450; 71045; 71250; 80048; 80053; 80074; 81001; 82077; 82150; 82375; 82550; 82803; 83605; 83690; 83735; 83880; 84132; 84145; 84443; 84484; 85025; 85027; 85379; 85610; 85652; 87045; 87046; 87177; 87209; 87328; 87329; 87427; 87493; 93005; 93041; 93268; 93306; 94760; 96365; 96374; 99291; Q3014